=== PATIENT | female | born 1945 | race Caucasian/White ===

== ENCOUNTER → 2017-12-19 10:17 | Outpatient (CLI) | payer MEDICARE, OTHER, SELFPAY ==
--- NOTE | 2017-12-19 | DI.US.S_ITS ---
PROCEDURE: US PELVIC COMPLETE INDICATIONS: NEOPLASM LEFT OVARY TECHNIQUE: Real-time scanning was performed of the pelvic organs, with image documentation. Additional endovaginal scanning was necessary due to incomplete visualization of the adnexal and endometrial structures by transabdominal scanning. COMPARISON: [facility], , PELVIC COMPLETE, 07/10/2017, 12:07. FINDINGS: Transabdominal scanning: Limited scanning through the kidneys shows no hydronephrosis. No pathologic free abdominal or pelvic fluid. Endovaginal scanning: Uterus: Uterus is normal in size at 5.8 x 2 point by 3.5 cm. The endometrium measures 3.5 mm in combined thickness. Myometrial calcification redemonstrated. Ovaries: Small bilateral ovarian cysts present largest on the left measure up to 1.6 cm and on the right 0.8 cm. Previously visualized left renal mass is no longer visible status post cryotherapy. Solid right renal mass is now seen involving the superior pole the right kidney measuring 2.3 cm. IMPRESSION: 1. Bilateral simple ovarian cysts similar to prior examination. Continued sonographic surveillance recommended. 2. Previously visualized left renal mass is no longer visible and a 2.3 cm solid mass now involves the superior pole of the right kidney. Underlying neoplasm cannot be excluded and if indicated renal protocol CT could be performed for further assessment. Dictated by: Ham PAIGE Interpreted: Yuval Orozco MD on 12/19/2017 at 11:21 Approved by: Yuval Orozco M.D. on 12/19/2017 at 14:18
== END ==
PROVIDERS: Family Provider Obstetrics & Gynecology; PCP Obstetrics & Gynecology; Visit Provider Obstetrics & Gynecology
DX: N83.291 Other ovarian cyst, right side (principal); N83.292 Other ovarian cyst, left side; N28.89 Other specified disorders of kidney and ureter; D49.59 Neoplasm of unspecified behavior of other genitourinary organ
CPT/HCPCS: 76830; 76856

== ENCOUNTER → 2017-12-25 10:49 | Outpatient (CLI) | payer MEDICARE, OTHER, SELFPAY ==
--- NOTE | 2017-12-25 | DI.CT.S_ITS ---
PROCEDURE: CT KIDNEY URETER BLADDER (KUB) INDICATIONS: Left adnexal mass TECHNIQUE: Noncontrast 5 mm thick sections acquired from the diaphragms to the symphysis. 5 mm thick coronal and sagittal reformats were then performed. For radiation dose reduction, the following was used: automated exposure control, adjustment of mA and/or kV according to patient size. COMPARISON: [facility], , PELVIC COMPLETE, 07/10/2017, 12:07. [facility], , PELVIC COMPLETE, 12/19/2017, 10:33. FINDINGS: Image quality: Excellent. Lung bases: Lung bases are clear. Heart size is normal. Urinary system: Both kidneys are normal in size, but exophytic from the lateral aspect of the middle third renal cortex on the right there is a complex mass containing internal fat and soft tissue radiodensity and faint peripheral calcifications. This measures up to 3.3 cm AP, 2.5 cm transverse and approximately 2.5 cm craniocaudad. The appearance is most likely a manifestation of angiomyolipoma. There are several bilateral water density renal cortical cyst appear simple by CT criteria bilaterally. No kidney stones. No hydronephrosis or perinephric fat stranding. Both ureters appear non-dilated throughout their expected courses. Bladder wall thickness is normal; no calcified bladder stones. Other solid organs: Liver is normal in size. Gallbladder appears normal where well visualized except for presence of a slight degree of layering calcification at the posterior border of the gallbladder lumen.. Pancreas is normal in contours. Spleen is normal in size. No adrenal nodules. Peritoneum and bowel: Unenhanced bowel loops demonstrate normal wall thickness and caliber. No free fluid or air. Nodes and vessels: No retroperitoneal or mesenteric adenopathy by size criteria. Aorta and inferior vena cava are normal in caliber. Abdominal wall: No ventral hernias. Pelvis: No free pelvic fluid. No inguinal hernias or adenopathy. Several adnexal cysts have been better visualized by ultrasound than by the current CT scanning, and currently the largest cyst appears present on the left measuring up to 2.2 cm. Bones: No suspicious bony lesions. No vertebral body compression fractures. IMPRESSION: Prior ultrasound scanning of the pelvis as included documentation of a right renal cortical mass like structure from studies performed in July and December of this year, but no prior imaging of this area is available for review. Outside studies, if available, would be very helpful in establishing chronicity of the abnormality present. At the lateral cortex of the right mid kidney there is a 3.3 cm maximal dimension complex masslike structure containing internal fat radiodensity and faint peripheral calcifications. This correlates with the sonographic abnormality. The fat density increases the likelihood of angiomyolipoma as cause of this appearance. Old comparison films should be obtained if possible. Urology consultation is recommended unless this has already been obtained and followup should be determined by the consulting urologist. Dictated by: Yuval Orozco M.D. on 12/25/2017 at 12:17 Approved by: Yuval Orozco M.D. on 12/25/2017 at 12:29
== END ==
PROVIDERS: Family Provider Obstetrics & Gynecology; PCP Obstetrics & Gynecology; Visit Provider Urology
DX: N28.89 Other specified disorders of kidney and ureter (principal); R19.09 Other intra-abdominal and pelvic swelling, mass and lump
CPT/HCPCS: 74176

== ENCOUNTER 2018-09-06 08:56 | Inpatient (IN) | payer MEDICARE, OTHER, SELFPAY ==
[2018-09-06] VITALS (19 sets, daily range): BP systolic 105–138; BP diastolic 36–67; PULSE 67–98; RESP 14–26; TEMP 35.8–37.5; O2SAT 86–97; BMI 27.3; BMI 26.3
--- NOTE | 2018-09-06 | DI.ECHO.S_ITS ---
[facility] [place] [facility]---------+ [facility] +---------+ : : [address] : : : : [id number] : : : : Phone: [phone]+ Echocardiogram Report + + :Name: WILBERTO FORBES Study Date: 09/06/2018 Height: 64 in : :[facility] Weight: 159 lb: : Gender: Female BSA: 1.8 m2 : :: 1945 Age: 73 yrs BP: 93/48 mmHg: :Reason For Study: Pulmonary - Hypertension : : Performed By: Bere Saldivar : :Referring: KIM LIN : + + Interpretation Summary Normal sinus rhythm. Normal LV size, wall thickness, wall motion and LV systolic function. EF is 60-65%. Moderate LA enlargement; otherwise normal chamber sizes. No significant valvular abnormalities. Estimated PA systolic pressure is 41 mm hg assuming RA pressure of 3 mm hg. There is a trivial circumferential pericardial effusion and trivial right pleural effusion. No prior study available for comparison. Procedure: A two-dimensional transthoracic echocardiogram with color flow and Doppler was performed. The study quality was technically adequate. There is no prior echocardiogram noted for this patient. The patient was in normal sinus rhythm during the exam. Left Ventricle: The left ventricle is normal in size, wall thickness, and systolic function without any focal wall motion abnormalities. The ejection fraction is estimated to be 60-65%. Diastolic parameters suggest a pseudonormalization pattern, consistent with probable elevated filling pressures. Right Ventricle: The right ventricle grossly appears normal in size with probable normal systolic function. Atria: The left atrium is moderately dilated. Right atrial size is normal. The interatrial septum is intact with no evidence for an atrial septal defect. Mitral Valve: The mitral valve is normal in structure and function. Aortic Valve: The aortic valve is trileaflet. The aortic valve opens well. Tricuspid Valve: The tricuspid valve leaflets are thin and pliable. There is mild tricuspid regurgitation. The right ventricular systolic pressure is estimated to be at least 41 mmHg based on an estimated right atrial pressure of 3 mm Hg. Pulmonic Valve: The pulmonic valve is not well seen, but is grossly normal. There is trace pulmonic regurgitation. Great Vessels: The aortic root is normal size. The ascending aorta is normal in size. The aortic arch is normal in size. The IVC is of normal diameter and collapses greater than 50% with a sniff. This suggests a low right atrial pressure of 3 mm Hg. Pericardium/ Pleura A circumferential pericardial effusion is noted. There is a trivial right-sided pleural effusion. MMode/2D Measurements & Calculations LVIDd: 4.3 cm Ao root diam: 3.1 cm LVIDs: 2.2 cm Aortic Jxn: 2.3 cm FS: 48.1 % asc Aorta Diam: 3.5 cm EPSS: 0.35 cm Ao Arch Diam (Prox Trans): 2.8 cm IVSd: 0.91 cm LVPWd: 0.72 cm LV rosales. diameter/BSA (cm/m^2): 2.4 LV sys. diameter/BSA (cm/m^2): 1.2 LA dimension: 3.3 cm RA long axis: 4.4 cm LA A2 area: 22.4 cm2 RA area: 16.0 cm2 LA A4 area: 24.3 cm2 RA vol: 49.0 ml LA length (vol): 5.6 cm RA : 27.6 ml/m2 LA vol: 83.2 ml RVDd major: 5.4 cm LA vol index: 46.9 ml/m2 RVD1 (basal): 3.7 cm RVD2 (mid): 2.6 cm Doppler Measurements & Calculations Ao V2 max: 169.0 cm/sec MV E max tio: 119.8 cm/sec Ao V2 mean: 113.6 cm/sec MV A max tio: 112.8 cm/sec Ao max P.4 mmHg MV E/A: 1.1 Ao mean P.0 mmHg Med Peak E' Tio: 5.5 cm/sec Ao V2 VTI: 40.3 cm E/E' med: 21.9 Lat Peak E' Tio: 9.1 cm/sec E/E' lat: 13.2 E/e' average: 17.6 MV dec time: 0.20 sec MV P1/2t: 60.6 msec TR max tio: 308.3 cm/sec MV P1/2t max tio: 120.2 cm/sec TR max P.0 mmHg MVA(P1/2t): 3.6 cm2 PA V2 max: 68.8 cm/sec PA V2 mean: 46.7 cm/sec PA mean P.0 mmHg PA Accel Time: 0.11 sec Electronically signed by: Melissa Solitario M.D. on Reading Physician:09/06/2018 06:15 PM
--- NOTE | 2018-09-06 09:06 | DI.CT.S_ITS ---
PROCEDURE: CT ABDOMEN PELVIS W CON INDICATIONS: Left sided pain TECHNIQUE: After the administration of intravenous contrast, 5 mm thick sections acquired from the diaphragm to the symphysis. 5 mm coronal and sagittal reformats were acquired. For radiation dose reduction, the following was used: automated exposure control, adjustment of mA and/or kV according to patient size. COMPARISON: [facility], CT, CT KIDNEY URETER BLADDER (KUB), 12/25/2017, 11:01. FINDINGS: Image quality: Excellent. ABDOMEN: Lung bases: There is mild right basilar atelectasis and a small low density right pleural effusion. There is mild consolidation at the left lung base with a small low-density left pleural effusion. Some pleural fluid is also tracking through the left oblique fissure. Heart is mildly enlarged. There is a small low-density pericardial effusion. Solid organs: Liver is normal in size and enhancement. Multiple subcentimeter gallstones are layered in the gallbladder fundus. No gallbladder wall thickening or pericholecystic fluid. Biliary system is non dilated. Pancreas enhances normally. Spleen is normal in size and enhancement. No adrenal nodules. Kidneys demonstrate normal size and enhancement, without hydronephrosis. Right nipple angiomyolipoma is redemonstrated and is unchanged when compared with the study dated 12/25/17. Bilateral low-density cystic lesions are redemonstrated within the renal cortices most likely representing simple renal cysts. 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 Peritoneum and bowel: Bowel loops demonstrate normal wall thickness and caliber. The appendix is thin walled and gas filled. There are scattered sigmoid diverticula. No evidence for diverticulitis. No free fluid or air. Nodes and vessels: No retroperitoneal or mesenteric adenopathy by size criteria. Aorta and inferior vena cava are normal in size. There are scattered atheromatous calcifications throughout the aorta and iliac arteries bilaterally. Miscellaneous: No ventral hernias. PELVIS: Genitourinary: Bladder wall thickness is normal. The uterus and right ovary are grossly unremarkable. Multiple cysts are visualized within the left ovary. Overall, the left ovary appears increased in size when compared with the study dated 12/25/17. No free periovarian fluid. Miscellaneous: No inguinal hernias or adenopathy. Bones: No suspicious bony lesions. No vertebral body compression fractures. Moderate to severe degenerative changes present throughout the lumbar spine. IMPRESSION: 1. No acute intra-abdominal findings. Normal appendix. 2. Increased size of the left ovary which has a multiloculated cystic appearance. In a postmenopausal female, it is unclear whether this may be physiologic or may represent a cystic tumor. Pelvic ultrasound is recommended to further characterize findings. Alternatively, gynecologic protocol MRI may be helpful. 3. Mild diverticulosis. No acute diverticulitis. 4. Stable right angiomyolipoma and bilateral renal cysts. 5. Cholelithiasis. No findings to suggest choledocholithiasis or acute cholecystitis. 6. Left basilar consolidation and small bilateral pleural effusions suspicious for aspiration/infection. Short interval followup is recommended with resolution of the patient's symptoms to ensure there is no underlying pulmonary pathology. Dictated by: Tiffany Allan M.D. on 09/06/2018 at 11:31 Approved by: Tifafny Allan M.D. on 09/06/2018 at 11:44
--- NOTE | 2018-09-06 09:06 | DI.CT.S_ITS ---
PROCEDURE: CT ANGIO CHEST PE PROTOCOL INDICATIONS: hypoxic, left sided chest pain. hurts to breath TECHNIQUE: After the administration of intravenous contrast, 2 mm thick sections acquired from the pulmonary apices to the posterior costophrenic angles. 3-dimensional maximum intensity projection (MIP) coronal and sagittal reformats were then acquired through the thorax. For radiation dose reduction, the following was used: automated exposure control, adjustment of mA and/or kV according to patient size. COMPARISON: [facility], CT, CT KIDNEY URETER BLADDER (KUB), 12/25/2017, 11:01. FINDINGS: Image quality: Excellent. Pulmonary arteries: Main pulmonary artery is enlarged measuring 43 mm. The pulmonary arteries demonstrate no intraluminal filling defects to suggest central pulmonary embolism. Lungs and pleura: Minimal effusion/dependent changes are present within the lungs bilaterally. There is an overall appearance of increased pulmonary vascularity. Faint areas of patchy opacity are noted in the left base. Central and peripheral airways are patent. Mediastinum: Heart size is mildly prominent with minimal pericardial effusion. There are two nodules identified along the left lateral aspect of the pericardial sac measuring 4 mm on series 4 image 58 and 7 mm on series 4 image 63. No mediastinal or hilar adenopathy. Thoracic aorta is normal in caliber and enhancement. Esophagus demonstrates circumferential distal thickening with hiatal hernia, unchanged compared to 2018. Bones and chest wall: No suspicious bony lesions. Ribs and thoracic spine appear intact throughout. Thyroid gland is nonvisualized. No axillary or supraclavicular adenopathy. Abdomen: Visualized upper abdominal solid organs appear normal in the early arterial phase of enhancement. IMPRESSION: 1. No pulmonary embolism. 2. Enlarged main pulmonary artery consistent pulmonary artery hypertension. 3. Subcentimeter nodules within the left aspect of the pericardial sac. These could represent reactive lymph nodes. However, other etiologies cannot be excluded and no priors are available for comparison. Recommend interval followup as clinically indicated to document stability and correlate with patient history. 4. Circumferential thickening of the distal esophagus which could be secondary to esophagitis. It is unchanged since 12/25/17. While this could represent esophagitis, marked circumferential thickening is noted in further evaluation with endoscopy or upper GI is recommended, as neoplasm cannot be definitively excluded. 4. Minimal effusion/dependent changes within the bases as well as increased vascularity suggestive of edema. Small patchy opacity is present in the left base likely represent atelectasis/focal edema. However, focus of developing airspace disease cannot be excluded. Dictated by: Liz Aguayo M.D. on 09/06/2018 at 11:35 Approved by: Liz Aguayo M.D. on 09/06/2018 at 11:49
--- NOTE | 2018-09-06 09:07 | DI.RAD.S_ITS ---
PROCEDURE: XR CHEST 1V INDICATIONS: hurts to breathe TECHNIQUE: One view of the chest was acquired. COMPARISON: [facility], , CHEST 2 VIEW, 10/26/2016, 13:21. FINDINGS: Surgical changes and devices: None. Lungs and pleura: Mild consolidation at the left lung base is present a partially obscured the diaphragm. There are low lung volumes. Mediastinum: Mediastinal contours appear normal. Heart size is mildly enlarged. There is aortic atherosclerosis. Bones and chest wall: No suspicious bony lesions. Overlying soft tissues appear unremarkable. IMPRESSION: 1. Cardiomegaly without overt heart failure. 2. Mild left basilar consolidation probably represents atelectasis. Pneumonia may also have this appearance. Dictated by: Nato Adams M.D. on 09/06/2018 at 8:29 Approved by: Nato Adams M.D. on 09/06/2018 at 8:30
--- NOTE | 2018-09-06 09:11 | ED_ITS ---
HPI - Abdominal Pain General Chief Complaint: Abdominal Pain Stated Complaint: LLQ Abdominal Pain Time Seen by Provider: 09/06/18 08:57 Source: patient, family and EMS Mode of arrival: EMS Limitations: no limitations History of Present Illness HPI narrative: Patient is a 73-year-old female who presents with left upper quadrant pain ongoing for the last 3 weeks. Seems of progressively be getting worse. She denies any fever productive cough. She states that it does hurt when she takes a deep breath. No injury. No dizziness or lightheadedness. She is noted to be hypoxic on room air at 85%. She appears in no acute respiratory distress able to give me a good history. Not on home oxygen. She has no chest pain not complaining of shortness of breath no heart palpitations. MD complaint: abdominal pain Onset (ago): week(s) Location: [facility] Severity: moderate Quality: stabbing Related Data Home Medications Medication Instructions Recorded Confirmed hydralazine 100 mg PO TID #0 10/26/16 09/06/18 metoprolol tartrate 12.5 mg PO BID #0 10/26/16 09/06/18 atorvastatin [Lipitor] 20 mg PO BEDTIME #0 10/27/16 09/06/18 cholecalciferol (vitamin D3) 2,000 unit PO QPM #0 10/27/16 09/06/18 [Vitamin D3] clonidine [[id number]] 0.3 mg TOPICAL QWEEKSA #0 10/27/16 09/06/18 liothyronine [Cytomel] 25 mcg PO QDAY #0 10/27/16 09/06/18 amlodipine 10 mg PO DAILY 09/06/18 09/06/18 doxazosin 2 mg PO BEDTIME 09/06/18 09/06/18 gabapentin 300 mg PO QPM 09/06/18 09/06/18 glipizide 5 mg PO DAILY 09/06/18 09/06/18 levothyroxine [Synthroid] 137 mcg PO DAILY 09/06/18 09/06/18 omeprazole 40 mg PO DAILY 09/06/18 09/06/18 paroxetine HCl 10 mg PO DAILY 09/06/18 09/06/18 sevelamer HCl [Renagel] 1,600 mg PO BID 09/06/18 09/06/18 sevelamer HCl [Renagel] 800 mg PO QNOON 09/06/18 09/06/18 Allergies Allergy/AdvReac Type Severity Reaction Status Date / Time adhesive tape AdvReac Mild Flushing Verified 09/06/18 14:07 Review of Systems Review of Systems ROS Unobtainable: All systems reviewed & are unremarkable except as noted in HPI and below Constitutional Denies chills, Denies fever(s), Denies lethargy and Denies weakness ENT Ears, Nose, Mouth, and Throat: Denies change in voice, Denies neck pain and Denies sore throat Cardiovascular Denies chest pain, Denies irregular heart rhythm, Denies lightheadedness, Denies palpitations, Denies dyspnea, Denies dyspnea on exertion and Denies orthopnea Respiratory Reports as per HPI, Denies cough, Denies hemoptysis, Denies dyspnea, Denies dyspnea on exertion and Denies wheezing Gastrointestinal Gastrointestinal: Denies abdominal pain, Denies change in bowel habits, Denies diarrhea, Denies nausea and Denies vomiting Genitourinary Denies hematuria, Denies flank pain, Denies urinary incontinence and Denies urinary urgency Musculoskeletal Denies neck pain Integumentary/Breasts Denies pruritus, Denies erythema, Denies rash and Denies wounds Neurologic Denies weakness Endocrine Denies palpitations Allergic/Immunologic Denies wheezing PFSH Medical History CKD (chronic kidney disease) (Acute) Hypertension (Acute) Hypothyroid (Acute) DM (diabetes mellitus) type II controlled with renal manifestation (Chronic) Diabetic neuropathy (Chronic) HLD (hyperlipidemia) (Chronic) Renal mass of unknown nature (Chronic) Surgical History H/O thyroidectomy (Chronic) Family History Father Diabetes mellitus Mother Diabetes mellitus Myocardial infarct Social History household members: spouse Smoking Status: Never smoker Social History household members: spouse Smoking Status: Never smoker Exam Initial Vital Signs Initial Vital Signs: Vital Signs Temperature 99.5 F 09/06/18 09:09 Pulse Rate 86 09/06/18 09:09 Respiratory Rate 26 H 09/06/18 09:09 Blood Pressure 138/59 L 09/06/18 09:09 Pulse Oximetry 86 L 09/06/18 09:09 GENERAL: Elderly female appears in pain holding left upper quadrant HEENT: Head atraumatic,EOMI, pupils reactive CARDIOVASCULAR: Regular rate and rhythm without murmurs, rubs or gallops. RESPIRATORY: Breath sounds equal bilaterally, no wheezes rales or rhonchi. Minimal rib pain no sign of trauma no paradoxical movement ABDOMEN: Soft, tender left upper quadrant no guarding or rebound RECTAL: No stool no gross blood EXTREMITIES: Normal range of motion, no clubbing or edema. Neurovascularly intact NEUROLOGICAL: Alert and oriented x4.Normal gait and speech. Cranial nerves II through XII grossly intact. SKIN: Warm, dry, no laceration, no petechiae, no rashes or lesions. Course Orders Ordered: ED Orders 09/06/18 09:06 CT abdomen pelvis w con Stat CT angio chest PE protocol Stat 09/06/18 09:07 XR chest 1V Stat EKG-12 Lead Stat 09/06/18 09:50 B Type Natriuretic Peptide Stat Complete Blood Count AUTO DIFF Stat Comprehensive Metabolic Panel Stat Iron Profile (w/ % Saturation) Stat Lipase Stat Packed Cells Urgent Partial Thromboplastin Time Stat Pathologist Review (for CBC) Stat Prothrombin Time INR Stat Troponin & CK Cardiac Panel Stat Type and Screen Stat 09/06/18 10:48 Urine Culture Stat Urine Microscopic Stat 09/06/18 12:22 Arterial Blood Gas Stat 09/06/18 15:55 Consult to Dietitian, Adult Routine Consult to Nanotechnology Engineering Technician Routine Hydrocodone Bitart/Acetaminophen ([place] 5/325) 1 tab PO Q4HR PRN PRN Reason: Pain, Moderate (4-6) Amlodipine Besylate (Norvasc) 10 mg PO DAILY [facility] Atorvastatin Calcium (Lipitor) 20 mg PO BEDTIME [facility] Clonidine HCl (Catapres-Tts 1) 0.3 mg TOP WEEKLY [facility] Doxazosin Mesylate (Cardura) 2 mg PO BEDTIME [facility] Gabapentin (Neurontin) 300 mg PO DAILY [facility] Glipizide (Glucotrol) 5 mg PO DAILY [facility] Heparin Sodium (Porcine) (Heparin) 5,000 unit SUBCUT BID A[facility]ON Hydralazine HCl (Apresoline) 100 mg PO TID [facility] Sodium Chloride (Normal Saline 0.9%) 1,000 mls @ 150 mls/hr IV CONT AARON Last Infusion: 09/06/18 12:08 Dose: 150 mls/hr Admin: 09/06/18 09:44 Dose: 150 mls/hr Levothyroxine Sodium (Synthroid) 137 mcg PO 0600 [facility] Liothyronine Sodium (Cytomel) 25 mcg PO DAILY [facility] Metoprolol Tartrate (Lopressor) 12.5 mg PO BID [facility] Sevelamer 800 Mg 1,600 mg PO BID AARON Sevelamer 800 Mg 800 mg PO 1200 [facility] Pantoprazole Sodium (Protonix) 40 mg PO 0600 [facility] Paroxetine HCl (Paxil) 10 mg PO DAILY [facility] Vitamin D (Vitamin D3) 2,000 unit PO DAILY AARON Discontinued Medications Morphine Sulfate (Morphine) 2 mg IV NOW ONE Stop: 09/06/18 09:07 Last Admin: 09/06/18 09:44 Dose: 2 mg Ondansetron HCl (Zofran) 4 mg IV NOW ONE Stop: 09/06/18 10:00 Last Admin: 09/06/18 10:00 Dose: 4 mg Pantoprazole Sodium (Protonix) 20 mg PO 0600 [facility] Vital Signs - 8 hr 09/06/18 09:09 09/06/18 09:15 09/06/18 11:30 Temperature 99.5 F Pulse Rate 86 78 Respiratory Rate 26 H 24 22 Blood Pressure 138/59 L Blood Pressure [Left Arm] 117/52 L Pulse Oximetry 86 L 95 92 09/06/18 12:01 09/06/18 12:31 09/06/18 13:44 Temperature Pulse Rate 76 73 72 Respiratory Rate 21 19 20 Blood Pressure Blood Pressure [Left Arm] 122/49 L 119/48 L 111/49 L Pulse Oximetry 93 92 95 09/06/18 14:56 Temperature 96.4 F L Pulse Rate 98 H Respiratory Rate Blood Pressure 110/36 L Blood Pressure [Left Arm] Pulse Oximetry 97 MDM - Abdominal Pain Lab Data Attestation: I reviewed the patient's lab results. Result diagrams: 09/06/18 09:50 09/06/18 09:50 Lab Results 09/06/18 09/06/18 09/06/18 Range/Units 09:50 09:50 09:50 WBC 3.1 L (4.5-11.0) X10^3/uL RBC 3.33 L (4.0-5.2) X10^6/uL Hgb 8.0 L (12.0-16.0) g/dL Hct 23.9 L (36-46) % MCV 71.8 L (80-100) fL MCH 23.9 L (26-34) PG MCHC 33.3 (30-36) % RDW 15.3 H (11.6-14.8) % Plt Count 212 (150-400) X10^3/uL Neut % (Auto) Not Reportable Lymph % (Auto) Not Reportable [place] % (Auto) Not Reportable Eos % (Auto) Not Reportable Baso % (Auto) Not Reportable Lymph # (Auto) Not Reportable [place] # (Auto) Not Reportable Baso # (Auto) Not Reportable Total Counted 100 Seg Neutrophils % 33.0 L (38-70) % Band Neutrophils % 19.0 H (3-7) % Lymphocytes % (Manual) 14.0 L (25-45) % Atypical Lymphs % 1.0 H ( - 0) % Monocytes % (Manual) 24.0 H (2-11) % Eosinophils % (Manual) 2.0 (2-4) % Metamyelocytes % 5.0 H (-0) % Myelocytes % 2.0 H (-0) % Neutrophils # (Manual) 1612 L (8138-6332) /uL RBC Morphology See below Hypochromasia 1+ H Anisocytosis 1+ H PT 15.0 H (10.1-12.7) SECONDS INR 1.3 (0.9-1.3) APTT 51 H (26.4-36.2) SECONDS ABG pH (7.35-7.45) ABG pCO2 (35-45) mmHg ABG pO2 (80-100) mmHg ABG HCO3 (22-26) mmol/L ABG Total CO2 (21-31) mmol/L ABG O2 Saturation (95-100) % ABG Base Excess (-2-2) mmol/L FiO2 Sodium (137-145) mmol/L Potassium (3.4-5.1) mmol/L Chloride (98-107) mmol/L Carbon Dioxide (22-32) mmol/L BUN (7-17) mg/dL Creatinine (0.52-1.04) mg/dL Estimated GFR (>60) mL/min BUN/Creatinine Ratio (6-22) Glucose (80-110) mg/dL Calcium (8.4-10.2) mg/dL Iron (37-170) ug/dL TIBC (265-497) ug/dL % Saturation (15-50) % Transferrin (206-381) mg/dL Total Bilirubin (0.2-1.3) mg/dL AST (14-36) IU/L ALT (9-52) IU/L Alkaline Phosphatase (38-126) U/L Total Creatine Kinase (30-135) U/L CK-MB (CK-2) CK-MB (CK-2) Rel Index Troponin I (0.01-0.034) ng/mL B-Natriuretic Peptide < 100 (<100) Total Protein (6.3-8.2) g/dL Albumin (3.5-5.0) g/dL Globulin (1.7-4.1) g/dL Albumin/Globulin Ratio (1.0-2.8) Lipase (23-300) U/L Urine RBC (0-5/HPF) Urine WBC (0-5/HPF) Ur Squamous Epith Cells Ur Renal Epithelial Cell Uric Acid Crystals Urine Bacteria (None) Hyaline Casts (None) Granular Casts (None) Ur Culture Indicated? Blood Type Antibody Screen Crossmatch 09/06/18 09/06/18 09/06/18 Range/Units 09:50 09:50 09:50 WBC (4.5-11.0) X10^3/uL RBC (4.0-5.2) X10^6/uL Hgb (12.0-16.0) g/dL Hct (36-46) % MCV (80-100) fL MCH (26-34) PG MCHC (30-36) % RDW (11.6-14.8) % Plt Count (150-400) X10^3/uL Neut % (Auto) Lymph % (Auto) [place] % (Auto) Eos % (Auto) Baso % (Auto) Lymph # (Auto) [place] # (Auto) Baso # (Auto) Total Counted Seg Neutrophils % (38-70) % Band Neutrophils % (3-7) % Lymphocytes % (Manual) (25-45) % Atypical Lymphs % ( - 0) % Monocytes % (Manual) (2-11) % Eosinophils % (Manual) (2-4) % Metamyelocytes % (-0) % Myelocytes % (-0) % Neutrophils # (Manual) (4542-0342) /uL RBC Morphology Hypochromasia Anisocytosis PT (10.1-12.7) SECONDS INR (0.9-1.3) APTT (26.4-36.2) SECONDS ABG pH (7.35-7.45) ABG pCO2 (35-45) mmHg ABG pO2 (80-100) mmHg ABG HCO3 (22-26) mmol/L ABG Total CO2 (21-31) mmol/L ABG O2 Saturation (95-100) % ABG Base Excess (-2-2) mmol/L FiO2 Sodium 128 L (137-145) mmol/L Potassium 4.3 (3.4-5.1) mmol/L Chloride 100 (98-107) mmol/L Carbon Dioxide 18 L (22-32) mmol/L BUN 23 H (7-17) mg/dL Creatinine 1.50 H (0.52-1.04) mg/dL Estimated GFR 34.0 L (>60) mL/min BUN/Creatinine Ratio 15.3 (6-22) Glucose 151 H (80-110) mg/dL Calcium 8.4 (8.4-10.2) mg/dL Iron 23 L (37-170) ug/dL TIBC 251 L (265-497) ug/dL % Saturation 9 L (15-50) % Transferrin 169 L (206-381) mg/dL Total Bilirubin 0.8 (0.2-1.3) mg/dL AST 20 (14-36) IU/L ALT 24 (9-52) IU/L Alkaline Phosphatase 60 (38-126) U/L Total Creatine Kinase < 20 L (30-135) U/L CK-MB (CK-2) TNP CK-MB (CK-2) Rel Index TNP Troponin I < 0.012 (0.01-0.034) ng/mL B-Natriuretic Peptide (<100) Total Protein 6.6 (6.3-8.2) g/dL Albumin 3.0 L (3.5-5.0) g/dL Globulin 3.6 (1.7-4.1) g/dL Albumin/Globulin Ratio 0.8 L (1.0-2.8) Lipase 52 (23-300) U/L Urine RBC (0-5/HPF) Urine WBC (0-5/HPF) Ur Squamous Epith Cells Ur Renal Epithelial Cell Uric Acid Crystals Urine Bacteria (None) Hyaline Casts (None) Granular Casts (None) Ur Culture Indicated? Blood Type O Positive Antibody Screen Negative Crossmatch See Detail 09/06/18 09/06/18 Range/Units 10:48 12:22 WBC (4.5-11.0) X10^3/uL RBC (4.0-5.2) X10^6/uL Hgb (12.0-16.0) g/dL Hct (36-46) % MCV (80-100) fL MCH (26-34) PG MCHC (30-36) % RDW (11.6-14.8) % Plt Count (150-400) X10^3/uL Neut % (Auto) Lymph % (Auto) [place] % (Auto) Eos % (Auto) Baso % (Auto) Lymph # (Auto) [place] # (Auto) Baso # (Auto) Total Counted Seg Neutrophils % (38-70) % Band Neutrophils % (3-7) % Lymphocytes % (Manual) (25-45) % Atypical Lymphs % ( - 0) % Monocytes % (Manual) (2-11) % Eosinophils % (Manual) (2-4) % Metamyelocytes % (-0) % Myelocytes % (-0) % Neutrophils # (Manual) (7416-1797) /uL RBC Morphology Hypochromasia Anisocytosis PT (10.1-12.7) SECONDS INR (0.9-1.3) APTT (26.4-36.2) SECONDS ABG pH 7.33 L (7.35-7.45) ABG pCO2 32.2 L (35-45) mmHg ABG pO2 50 L (80-100) mmHg ABG HCO3 17 L (22-26) mmol/L ABG Total CO2 18 L (21-31) mmol/L ABG O2 Saturation 83 L* (95-100) % ABG Base Excess -9.0 L (-2-2) mmol/L FiO2 0.21 Sodium (137-145) mmol/L Potassium (3.4-5.1) mmol/L Chloride (98-107) mmol/L Carbon Dioxide (22-32) mmol/L BUN (7-17) mg/dL Creatinine (0.52-1.04) mg/dL Estimated GFR (>60) mL/min BUN/Creatinine Ratio (6-22) Glucose (80-110) mg/dL Calcium (8.4-10.2) mg/dL Iron (37-170) ug/dL TIBC (265-497) ug/dL % Saturation (15-50) % Transferrin (206-381) mg/dL Total Bilirubin (0.2-1.3) mg/dL AST (14-36) IU/L ALT (9-52) IU/L Alkaline Phosphatase (38-126) U/L Total Creatine Kinase (30-135) U/L CK-MB (CK-2) CK-MB (CK-2) Rel Index Troponin I (0.01-0.034) ng/mL B-Natriuretic Peptide (<100) Total Protein (6.3-8.2) g/dL Albumin (3.5-5.0) g/dL Globulin (1.7-4.1) g/dL Albumin/Globulin Ratio (1.0-2.8) Lipase (23-300) U/L Urine RBC 1-5/hpf (0-5/HPF) Urine WBC 1-5/hpf (0-5/HPF) Ur Squamous Epith Cells 1-5 /hpf Ur Renal Epithelial Cell 0-1/hpf Uric Acid Crystals Moderate Urine Bacteria Moderate (10-30) H (None) Hyaline Casts 1-5/lpf (None) Granular Casts 30-100/lpf (None) Ur Culture Indicated? Specimen cultured Blood Type Antibody Screen Crossmatch Point of care testing: Urine Dip Bedside Urine Glucose Negative Bedside Urine Bilirubin - Negative Bedside Urine Ketone - Negative Urine Specific Terrell 1.020 Bedside Urine Occult Blood - Negative Bedside Urine pH 5.5 Bedside Urine Protein ++ 100 Bedside Urine Urobilinogen - Negative Bedside Urine Nitrite - Negative Bedside Urine Leukocytes - Negative Esterase Imaging Data CT scan - chest: Radiologist's impression: PROCEDURE: CT ANGIO CHEST PE PROTOCOL INDICATIONS: hypoxic, left sided chest pain. hurts to breath TECHNIQUE: After the administration of intravenous contrast, 2 mm thick sections acquired from the pulmonary apices to the posterior costophrenic angles. 3-dimensional maximum intensity projection (MIP) coronal and sagittal reformats were then acquired through the thorax. For radiation dose reduction, the following was used: automated exposure control, adjustment of mA and/or kV according to patient size. COMPARISON: [facility], CT, CT KIDNEY URETER BLADDER ([facility]UB), 12/25/2017, 11:01. FINDINGS: Image quality: Excellent. Pulmonary arteries: Main pulmonary artery is enlarged measuring 43 mm. The pulmonary arteries demonstrate no intraluminal filling defects to suggest central pulmonary embolism. Lungs and pleura: Minimal effusion/dependent changes are present within the lungs bilaterally. There is an overall appearance of increased pulmonary vascularity. Faint areas of patchy opacity are noted in the left base. Central and peripheral airways are patent. Mediastinum: Heart size is mildly prominent with minimal pericardial effusion. There are two nodules identified along the left lateral aspect of the pericardial sac measuring 4 mm on series 4 image 58 and 7 mm on series 4 image 63. No mediastinal or hilar adenopathy. Thoracic aorta is normal in caliber and enhancement. Esophagus demonstrates circumferential distal thickening with hiatal hernia, unchanged compared to 2018. Bones and chest wall: No suspicious bony lesions. Ribs and thoracic spine appear intact throughout. Thyroid gland is nonvisualized. No axillary or supraclavicular adenopathy. Abdomen: Visualized upper abdominal solid organs appear normal in the early arterial phase of enhancement. IMPRESSION: 1. No pulmonary embolism. 2. Enlarged main pulmonary artery consistent pulmonary artery hypertension. 3. Subcentimeter nodules within the left aspect of the pericardial sac. These could represent reactive lymph nodes. However, other etiologies cannot be excluded and no priors are available for comparison. Recommend interval followup as clinically indicated to document stability and correlate with patient history. 4. Circumferential thickening of the distal esophagus which could be secondary to esophagitis. It is unchanged since 12/25/17. While this could represent esophagitis, marked circumferential thickening is noted in further evaluation with endoscopy or upper GI is recommended, as neoplasm cannot be definitively excluded. 4. Minimal effusion/dependent changes within the bases as well as increased vascularity suggestive of edema. Small patchy opacity is present in the left base likely represent atelectasis/focal edema. However, focus of developing airspace disease cannot be excluded. Dictated by: Liz Aguayo M.D. on 09/06/2018 at 11:35 CT scan - abdomen: Radiologist's impression: PROCEDURE: CT ABDOMEN PELVIS W CON INDICATIONS: Left sided pain TECHNIQUE: After the administration of intravenous contrast, 5 mm thick sections acquired from the diaphragm to the symphysis. 5 mm coronal and sagittal reformats were acquired. For radiation dose reduction, the following was used: automated exposure control, adjustment of mA and/or kV according to patient size. COMPARISON: [facility], CT, CT KIDNEY URETER BLADDER ([facility]UB), 12/25/2017, 11:01. FINDINGS: Image quality: Excellent. ABDOMEN: Lung bases: There is mild right basilar atelectasis and a small low density right pleural effusion. There is mild consolidation at the left lung base with a small low- density left pleural effusion. Some pleural fluid is also tracking through the left oblique fissure. Heart is mildly enlarged. There is a small low-density pericardial effusion. Solid organs: Liver is normal in size and enhancement. Multiple subcentimeter gallstones are layered in the gallbladder fundus. No gallbladder wall thickening or pericholecystic fluid. Biliary system is non dilated. Pancreas enhances normally. Spleen is normal in size and enhancement. No adrenal nodules. Kidneys demonstrate normal size and enhancement, without hydronephrosis. Right nipple angiomyolipoma is redemonstrated and is unchanged when compared with the study dated 12/25/17. Bilateral low-density cystic lesions are redemonstrated within the renal cortices most likely representing simple renal cysts. 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 Peritoneum and bowel: Bowel loops demonstrate normal wall thickness and caliber. The appendix is thin walled and gas filled. There are scattered sigmoid diverticula. No evidence for diverticulitis. No free fluid or air. Nodes and vessels: No retroperitoneal or mesenteric adenopathy by size criteria. Aorta and inferior vena cava are normal in size. There are scattered atheromatous calcifications throughout the aorta and iliac arteries bilaterally. Miscellaneous: No ventral hernias. PELVIS: Genitourinary: Bladder wall thickness is normal. The uterus and right ovary are grossly unremarkable. Multiple cysts are visualized within the left ovary. Overall, the left ovary appears increased in size when compared with the study dated 12/25/17. No free periovarian fluid. Miscellaneous: No inguinal hernias or adenopathy. Bones: No suspicious bony lesions. No vertebral body compression fractures. Moderate to severe degenerative changes present throughout the lumbar spine. IMPRESSION: 1. No acute intra-abdominal findings. Normal appendix. 2. Increased size of the left ovary which has a multiloculated cystic appearance. In a postmenopausal female, it is unclear whether this may be physiologic or may represent a cystic tumor. Pelvic ultrasound is recommended to further characterize findings. Alternatively, gynecologic protocol MRI may be helpful. 3. Mild diverticulosis. No acute diverticulitis. 4. Stable right angiomyolipoma and bilateral renal cysts. 5. Cholelithiasis. No findings to suggest choledocholithiasis or acute cholecystitis. 6. Left basilar consolidation and small bilateral pleural effusions suspicious for aspiration/infection. Short interval followup is recommended with resolution of the patient's symptoms to ensure there is no underlying pulmonary pathology. Dictated by: Tiffany Allan M.D. on 09/06/2018 at 11:31 Chest x-ray: Radiologist's impression: PROCEDURE: XR CHEST 1V INDICATIONS: hurts to breathe TECHNIQUE: One view of the chest was acquired. COMPARISON: [facility], CHEST 2 VIEW, 10/26/2016, 13:21. FINDINGS: Surgical changes and devices: None. Lungs and pleura: Mild consolidation at the left lung base is present a partially obscured the diaphragm. There are low lung volumes. Mediastinum: Mediastinal contours appear normal. Heart size is mildly enlarged. There is aortic atherosclerosis. Bones and chest wall: No suspicious bony lesions. Overlying soft tissues appear unremarkable. IMPRESSION: 1. Cardiomegaly without overt heart failure. 2. Mild left basilar consolidation probably represents atelectasis. Pneumonia may also have this appearance. Dictated by: Nato Adams M.D. on 09/06/2018 at 8:29 ECG Data Attestation: I personally reviewed and interpreted this ECG as follows: Prior ECG tracings: available for review Interpretation: Sinus rhythm rate 86 similar prior EKG Q-wave noted in lead 3 and anterior leads no ST elevations or depressions. MDM Narrative Medical decision making narrative: Patient is complaining of left upper quadrant pain but I have no cause of her left upper quadrant pain. She is also noted to be quite hypoxic. Workup for this is also negative except that she is anemic. However her anemia does not explain her severe hypoxia. She is not actively bleeding. She does have pulmonary hypertension noted on CT a. She may have some sort of shunt problem. She certainly does not seem to be in any sort of severe respiratory distress. It is possible that due to pain she is not taking big breaths. She was given pain medicine all O2 did not improve. Her oxygen level does improve within 2-[address] Brunner hospitalist request ABG in pulmonary consult. I discussed case with Dr. oneal montanez supervisor gluing [facility]. At this time unclear exact cause of hypoxia pulmonary hypertension noted on CT recommends echocardiogram to start workup. At this time agrees no need for transfer. Dr. Brunner accepts the transfer Discharge Plan Departure Patient Disposition: Admitted as Observation Clinical Impression: Hypoxia, Abdominal pain Anemia Qualifiers: Anemia type: other cause Discharge Date/Time: 09/06/18 15:20 Interventions: ED Discharge Assessment Last Done: 09/06/18 14:56 Referrals: Jerome Tracey MD [Primary Care Provider] - Admit Date/Time: 09/06/18 13:37 Admit Provider: Elly Brunner
--- NOTE | 2018-09-06 09:20 | PC.NURSE ---
Doctor assessing patient, patients oxygen was low in the 80's on arrival with a good pleth waveform. I put patient on 2L of O2 and it brought patients oxygen up to 95%.
[2018-09-06] MEDS: SODIUM CHLORIDE 0.9% 1,000 ML 150 ML IV ×2 (09:44→23:40)
[2018-09-06] MEDS: MORPHINE 2 MG/ML INJ IV (09:44)
[2018-09-06] MEDS: ONDANSETRON 4 MG/2 ML INJ IV (10:00)
[2018-09-06 10:08] LABS: INR 1.3 (0.9-1.3)
[2018-09-06 10:11] LABS: PTT Partial Thromboplastin Tim 51 SECONDS (26.4-36.2)
[2018-09-06 10:14] LABS: Alanine Aminotransferase 24 IU/L (9-52); Albumin Globulin Ratio 0.8 (1.0-2.8); Alkaline Phosphatase 60 U/L (38-126); Aspartate Aminotransferase 20 IU/L (14-36); BUN Creatinine Ratio 15.3 (6-22); Bilirubin Total 0.8 mg/dL (0.2-1.3); Blood Urea Nitrogen 23 mg/dL (7-17); Calcium 8.4 mg/dL (8.4-10.2); Carbon Dioxide 18 mmol/L (22-32); Chloride 100 mmol/L (98-107); Creatine Kinase < 20 U/L (30-135); Globulin 3.6 g/dL (1.7-4.1); Glucose 151 mg/dL (80-110); HEMOLYSIS < 15 (0-50); Lipase 52 U/L (23-300); Potassium 4.3 mmol/L (3.4-5.1); Sodium 128 mmol/L (137-145); Total Protein 6.6 g/dL (6.3-8.2)
[2018-09-06 10:24] LABS: Troponin I < 0.012 ng/mL (0.01-0.034)
[2018-09-06 10:26] LABS: Hematocrit 23.9 % (36-46); Mean Corpuscular HGB Conc 33.3 % (30-36); Mean Corpuscular Hemoglobin 23.9 PG (26-34); Mean Corpuscular Volume 71.8 fL (80-100); Platelet Count 212 X10^3/uL (150-400); Red Blood Cell Count 3.33 X10^6/uL (4.0-5.2); Red Cell Distribution Width 15.3 % (11.6-14.8); White Blood Cell Count 3.1 X10^3/uL (4.5-11.0)
[2018-09-06 10:28] LABS: Add Manual Diff / Slide Review YES
[2018-09-06 10:48] LABS: Neutrophils Absolute Manual 1612 /uL (3000-5900); Total Cells Counted 100
[2018-09-06 10:52] LABS: B Type Natriuretic Peptide < 100 (<100)
[2018-09-06 11:02] LABS: Anisocytosis 1+
[2018-09-06 11:03] LABS: Hypochromasia 1+
[2018-09-06 11:31] LABS: RBC Urine 1-5/HPF (0-5/HPF); Renal Epithelial Cells Urine 0-1/HPF; Squamous Epithelial Cell Urine 1-5 /HPF; Uric Acid Crystals Urine Moderate; WBC Urine 1-5/HPF (0-5/HPF)
[2018-09-06 11:32] LABS: Bacteria Urine Moderate (10-30); Granular Casts Urine 30-100/LPF; Hyaline Casts Urine 1-5/LPF
[2018-09-06 11:33] LABS: Culture Indicated Urine Specimen Cultured
--- NOTE | 2018-09-06 12:17 | PC.NURSE ---
Dr. Garcia in the room; Discontinued oxygen - patient O2 saturation decreased to 83% on room within 2 minutes of oxygen beginning discontinued. Oxygen at 2L/min;
[2018-09-06 12:50] LABS: PCO2 ABG 32.2 mmHg (35-45); PO2 ABG 50 mmHg (80-100); pH ABG 7.33 (7.35-7.45)
[2018-09-06 12:51] LABS: HCO3 ABG 17 mmol/L (22-26); TCO2 ABG 18 mmol/L (21-31)
[2018-09-06 12:52] LABS: Fractionated Inspired Oxygen 0.21; Oxygen Saturation ABG 83 % (95-100)
[2018-09-06 15:05] LABS: HEMOLYSIS 15 (0-50); Iron 23 ug/dL (37-170)
--- NOTE | 2018-09-06 15:08 | P.HP_ITS ---
History of Present Illness Date Patient Seen: 09/06/18 Time Patient Seen: 14:36 Chief complaint: LLQ Abdominal Pain Narrative: 73-year-old female with past medical history of hypertension, hy perlipidemia, diabetes type 2, thyroid tumor status post resection and secondary hypothyroidism, diabetic neuropathy, CKD, renal cancer status post cryo resection presented to emergency department with left upper quadrant pain. Patient states the pain started roughly about 3 weeks ago and progressively has gotten worse. For the past 4 days the pain has been very severe, sharp, nonradiating, and initiated with deep breath, which has prevented patient from taking good breaths. Because the frequency increased to every few hours over the last 4 days, patient has came to emergency department for further evaluation. She denies any fevers or chills, denies any nausea or vomiting, denies any diarrhea or constipation, denies any cough denies any loss of consciousness. Denies any blurry vision, lightheadedness or dizziness. Denies any chest pain or palpitations. Patient does state that she has had loss of appetite. She has lost 30 lb in the last 7 months. Patient denies any symptoms. She denies trauma to the left side of her chest and abdomen. In the emergency department, patient's vitals revealed temperature 99.5? F, pulse 86, respiratory rate 26, blood pressure 138/59, and saturation 86% on room air. Her saturation improved to 94% on 2 L oxygen. Lab work revealed WBC 3.1, hemoglobin 8.0, hematocrit 23.9, platelets 212. Sodium was 128, potassium 4.3, chloride 100, bicarb 18, BUN 23, and creatinine 1.5. BNP was less than 100. Troponin was negative at 0.012. LFTs were normal with exception of albumin at 3.0. Lipase was 52. UA showed no nitrites or leukocyte esterase. ABG showed pH 7.33, CO2 32, PO2 50. Chest x-ray was performed which revealed cardiomegaly with left basilar consolidation, likely atelectasis. CTA PE performed which revealed no pulmonary embolism, however there was enlarged pulmonary artery consistent with pulmonary artery hypertension, subcentimeter nodules within pericardial sac, possible esophagitis, and minimal effusion at the bases of the lungs bilaterally. At that point CT of the abdomen and pelvis was performed which revealed no acute intra-abdominal findings, but increased size of left ovary with multiple cysts, mild diverticulosis, bilateral renal cysts and right angiomyolipoma, cholelithiasis, and left basilar consolidation and small bilateral pleural effusion. Patient was admitted to general floor for further workup of hypoxia/hypoxemia, and left sided pain. Patient History Medical History CKD (chronic kidney disease) (Acute) Hypertension (Acute) Hypothyroid (Acute) DM (diabetes mellitus) type II controlled with renal manifestation (Chronic) Diabetic neuropathy (Chronic) HLD (hyperlipidemia) (Chronic) Renal mass of unknown nature (Chronic) Surgical History H/O thyroidectomy (Chronic) Family History Father Diabetes mellitus Mother Diabetes mellitus Myocardial infarct Social History Smoking Status: Current every day smoker Family & Social History Family History Father Diabetes mellitus Mother Diabetes mellitus Myocardial infarct Safety & Behavioral: Feels Safe in Current Yes Environment Been Physically Hurt or No Threatened By a Person Tobacco & Substance use: Smoking Status denies Substance Use Type does not use Meds Home Medications Medication Instructions Recorded Confirmed Type hydralazine 100 mg PO TID #0 10/26/16 09/06/18 History metoprolol tartrate 12.5 mg PO BID #0 10/26/16 09/06/18 History [VITAMIN D3] 2,000 iu PO Q DAY #0 10/27/16 History atorvastatin [Lipitor] 20 mg PO DAILY #0 10/27/16 09/06/18 History clonidine [[id number]] 0.3 mg TOPICAL QWEEKSA #0 10/27/16 09/06/18 History liothyronine [Cytomel] 25 mcg PO QDAY #0 10/27/16 History amlodipine 10 mg PO DAILY 09/06/18 09/06/18 History doxazosin 2 mg PO DAILY 09/06/18 09/06/18 History gabapentin 300 mg PO DAILY 09/06/18 09/06/18 History glipizide 5 mg PO DAILY 09/06/18 09/06/18 History levothyroxine [Synthroid] 1 dose PO DIRECTED 09/06/18 History omeprazole 20 mg PO BID 09/06/18 09/06/18 History paroxetine HCl 10 mg PO DAILY 09/06/18 09/06/18 History sevelamer HCl [Renagel] 09/06/18 History sevelamer HCl [Renagel] 800 mg PO QNOON 09/06/18 09/06/18 History Allergies Allergy/AdvReac Type Severity Reaction Status Date / Time adhesive tape AdvReac Mild Flushing Verified 09/06/18 14:07 Review of Systems Review of Systems All systems reviewed & are unremarkable except as noted in HPI and below Exam Vital Signs (past 8 hours): - 09/06/18 09:09 09/06/18 09:15 09/06/18 11:30 Temperature 99.5 F Pulse Rate 86 78 Respiratory Rate 26 H 24 22 Blood Pressure 138/59 L Blood Pressure [Left Arm] 117/52 L Pulse Oximetry 86 L 95 92 09/06/18 12:01 09/06/18 12:31 09/06/18 13:44 Temperature Pulse Rate 76 73 72 Respiratory Rate 21 19 20 Blood Pressure Blood Pressure [Left Arm] 122/49 L 119/48 L 111/49 L Pulse Oximetry 93 92 95 Oxygen Delivery Method Nasal Cannula Oxygen Flow Rate 2 Narrative Exam Narrative: General: No acute distress, patient lying comfortably in bed. AAO x3 HEENT: PERRLA and EOMI bilaterally, moist mucous membranes, missing teeth Neck: Supple, no LAD or JVD CV: Regular rate rhythm, no gallops or murmurs appreciated Respiratory: Clear to auscultation in all lung trimble, no wheezing or crackles appreciated GI: Positive bowel sounds in all 4 quadrants, no tenderness to palpation. No organomegaly. Musculoskeletal: Moves all extremities Skin: No bruising or rashes noted Extremities: No edema noted. 2+ pulses in all 4 extremities Neuro: No focal deficits. AAO x3 Psych: Appropriate mood and affect. Able to make her own decisions Objective Labs Result Diagrams: 09/06/18 09:50 09/06/18 09:50 Labs: Laboratory Results - last 24 hr 09/06/18 09/06/18 09/06/18 09:50 09:50 09:50 WBC 3.1 L RBC 3.33 L Hgb 8.0 L Hct 23.9 L MCV 71.8 L MCH 23.9 L MCHC 33.3 RDW 15.3 H Plt Count 212 Neut % (Auto) Not Reportable Lymph % (Auto) Not Reportable [place] % (Auto) Not Reportable Eos % (Auto) Not Reportable Baso % (Auto) Not Reportable Lymph # (Auto) Not Reportable [place] # (Auto) Not Reportable Baso # (Auto) Not Reportable Total Counted 100 Seg Neutrophils % 33.0 L Band Neutrophils % 19.0 H Lymphocytes % (Manual) 14.0 L Atypical Lymphs % 1.0 H Monocytes % (Manual) 24.0 H Eosinophils % (Manual) 2.0 Metamyelocytes % 5.0 H Myelocytes % 2.0 H Neutrophils # (Manual) 1612 L RBC Morphology See below Hypochromasia 1+ H Anisocytosis 1+ H PT 15.0 H INR 1.3 APTT 51 H ABG pH ABG pCO2 ABG pO2 ABG HCO3 ABG Total CO2 ABG O2 Saturation ABG Base Excess FiO2 Sodium Potassium Chloride Carbon Dioxide BUN Creatinine Estimated GFR BUN/Creatinine Ratio Glucose Calcium Total Bilirubin AST ALT Alkaline Phosphatase Total Creatine Kinase CK-MB (CK-2) CK-MB (CK-2) Rel Index Troponin I B-Natriuretic Peptide < 100 Total Protein Albumin Globulin Albumin/Globulin Ratio Lipase Urine RBC Urine WBC Ur Squamous Epith Cells Ur Renal Epithelial Cell Uric Acid Crystals Urine Bacteria Hyaline Casts Granular Casts Ur Culture Indicated? Blood Type Antibody Screen Crossmatch 09/06/18 09/06/18 09/06/18 09:50 09:50 10:48 WBC RBC Hgb Hct MCV MCH MCHC RDW Plt Count Neut % (Auto) Lymph % (Auto) [place] % (Auto) Eos % (Auto) Baso % (Auto) Lymph # (Auto) [place] # (Auto) Baso # (Auto) Total Counted Seg Neutrophils % Band Neutrophils % Lymphocytes % (Manual) Atypical Lymphs % Monocytes % (Manual) Eosinophils % (Manual) Metamyelocytes % Myelocytes % Neutrophils # (Manual) RBC Morphology Hypochromasia Anisocytosis PT INR APTT ABG pH ABG pCO2 ABG pO2 ABG HCO3 ABG Total CO2 ABG O2 Saturation ABG Base Excess FiO2 Sodium 128 L Potassium 4.3 Chloride 100 Carbon Dioxide 18 L BUN 23 H Creatinine 1.50 H Estimated GFR 34.0 L BUN/Creatinine Ratio 15.3 Glucose 151 H Calcium 8.4 Total Bilirubin 0.8 AST 20 ALT 24 Alkaline Phosphatase 60 Total Creatine Kinase < 20 L CK-MB (CK-2) TNP CK-MB (CK-2) Rel Index TNP Troponin I < 0.012 B-Natriuretic Peptide Total Protein 6.6 Albumin 3.0 L Globulin 3.6 Albumin/Globulin Ratio 0.8 L Lipase 52 Urine RBC 1-5/hpf Urine WBC 1-5/hpf Ur Squamous Epith Cells 1-5 /hpf Ur Renal Epithelial Cell 0-1/hpf Uric Acid Crystals Moderate Urine Bacteria Moderate (10-30) H Hyaline Casts 1-5/lpf Granular Casts 30-100/lpf Ur Culture Indicated? Specimen cultured Blood Type O Positive Antibody Screen Negative Crossmatch See Detail 09/06/18 12:22 WBC RBC Hgb Hct MCV MCH MCHC RDW Plt Count Neut % (Auto) Lymph % (Auto) [place] % (Auto) Eos % (Auto) Baso % (Auto) Lymph # (Auto) [place] # (Auto) Baso # (Auto) Total Counted Seg Neutrophils % Band Neutrophils % Lymphocytes % (Manual) Atypical Lymphs % Monocytes % (Manual) Eosinophils % (Manual) Metamyelocytes % Myelocytes % Neutrophils # (Manual) RBC Morphology Hypochromasia Anisocytosis PT INR APTT ABG pH 7.33 L ABG pCO2 32.2 L ABG pO2 50 L ABG HCO3 17 L ABG Total CO2 18 L ABG O2 Saturation 83 L* ABG Base Excess -9.0 L FiO2 0.21 Sodium Potassium Chloride Carbon Dioxide BUN Creatinine Estimated GFR BUN/Creatinine Ratio Glucose Calcium Total Bilirubin AST ALT Alkaline Phosphatase Total Creatine Kinase CK-MB (CK-2) CK-MB (CK-2) Rel Index Troponin I B-Natriuretic Peptide Total Protein Albumin Globulin Albumin/Globulin Ratio Lipase Urine RBC Urine WBC Ur Squamous Epith Cells Ur Renal Epithelial Cell Uric Acid Crystals Urine Bacteria Hyaline Casts Granular Casts Ur Culture Indicated? Blood Type Antibody Screen Crossmatch Assessment & Plan Assessment & Plan narrative: 73-year-old female with past medical history of hypertension, hyperlipidemia, diabetes type 2, thyroid tumor status post resection and secondary hypothyroidism, diabetic neuropathy, CKD, renal cancer status post cryo resection presented to emergency department with left upper quadrant/cherst pain. She was found to be hypoxic/hypoxemic and is therefore admitted for further workup. 1. Hypoxia/hypoxemia -unknown chronicity or etiology at this time -differential diagnosis: Anemia vs. Pulmonary hypertension vs. Atelectasis vs. Pulmonary effusion -on admission patient was saturating 85% on room air, ABG significant for PaO2 of 50 -hemoglobin 8.0, hematocrit 23 -CTA PE and CT abdomen pelvis revealed left-sided atelectasis with bilateral s mall pleural effusions and pulmonary artery hypertension -patient was placed on supplemental oxygen 2 L, with improvement in saturation to 94%. Continue nasal cannula at this time -will get 2D echo to evaluate for structural heart disease and further assess pulmonary hypertension -given the hypoxia and low hemoglobin, will transfuse patient 2 units packed red blood cells -will initiate incentive spirometry for possible atelectasis 2. Left upper quadrant/chest pain -noncardiac in nature, unclear etiology at this time -lipase and LFTs are negative -troponin and BNP are negative -CT abdomen pelvis with no acute findings to suggest the symptoms -will initiate pain control with [place] 5/325 mg p.o. q.6 hours as needed 3. Hypertension -blood pressure stable at this time -resume amlodipine, clonidine, metoprolol, hydralazine home regimen -monitor blood pressure 4. Diabetes type 2 -with complications of diabetic neuropathy and CKD -blood glucose on admission 151 -resume gabapentin, glipizide home regimen -frequent Accu-Cheks, hypoglycemia protocol 5. Hyperlipidemia -resume atorvastatin home regimen 6. CKD, stage 4 -BUN 23, creatinine 1.5, unsure if this is patient's baseline -resume sevelamer home regimen medication 7. Hypothyroidism -due to thyroidectomy from previous thyroid tumor -resume levothyroxine and liothyronine home regimen 8. CT findings of esophagitis -per CT, there is thickening of the distal esophagus region which could be possible esophagitis, although the location of patient's pain does not correlate with this picture -will start patient on pantoprazole 20 mg p.o. daily -consider surgical consult for possible EGD in or outpatient 9. Nodules/cysts found on CT -per CTA PE and CT abdomen and pelvis, there are small nodules on pericardial sac, as well as renal cysts -follow-up likely be needed to Urology and Oncology 10. Microcytic anemia -unclear etiology at this time -hemoglobin 8.0, hematocrit 23.9 on admission -Guiac negative in ED -given the severe hypoxemia/hypoxia, will transfuse patient 2 units of packed red blood cells -will get iron studies prior to transfusion to further assess anemia Patient is DNR/DNI DVT prophylaxis with heparin subQ Dispo: Patient is here for evaluation of hypoxia/hypoxemia. Echo is pending. Transfusing 2 units of blood. Left upper quadrant/chest Pain control with [place].
[2018-09-06 15:15] LABS: Percent Iron Saturation 9 % (15-50); Total Iron Binding Capacity 251 ug/dL (265-497); Transferrin 169 mg/dL (206-381)
--- NOTE | 2018-09-06 16:37 | PC.NURSE ---
Addendum entered by Shila Atwood R.N. 09/06/18 20:45: Second unit hung. Pt continues to tolerate well. Up with assist to [facility]SC. Original Note: Addendum entered by Shila Atwood R.N. 09/06/18 17:39: PM shift Started 1st unit of PRBC, Pt is tolerating well. increased O2 to 3L. Original Note: Admission Pt arrived from ER, A/o x3, able to transfer from [facility] to bed with assist. Reports pain to L side ABD, 5/10. Declines offer for pain control at this time. Oriented to room and call light. Admission completed by Bere SOUZA. Daughter at bedside, updated on POC and blood to be started. 02 2L for hypoxia. 95% 2L. High fall risk.
[2018-09-06] MEDS: ONDANSETRON 4 MG ODT SL (17:53)
[2018-09-06] MEDS: HYDROCODONE/ACET 5/325 TABLET 1 TAB PO (17:55)
[2018-09-06] MEDS: DOXAZOSIN 2 MG TABLET PO (21:44)
[2018-09-06] MEDS: ATORVASTATIN 20 MG TABLET PO (21:44)
[2018-09-06] MEDS: HYDRALAZINE 25 MG TABLET 100 MG PO (21:45)
[2018-09-06] MEDS: HEPARIN 5,000 UNIT/ML VIAL 5000 UNIT SUBCUT (21:45)
[2018-09-06] MEDS: SEVELAMER 800 MG 1600 EACH PO (21:46)
[2018-09-07] VITALS (15 sets, daily range): BP systolic 113–131; BP diastolic 50–60; PULSE 70–96; RESP 16–20; TEMP 36.7–37.6; O2SAT 86–95
--- NOTE | 2018-09-07 | DI.RAD.S_ITS ---
PROCEDURE: XR CHEST 2V INDICATIONS: pneumonia TECHNIQUE: 2 views of the chest were acquired. COMPARISON: [facility], , CHEST 2 VIEW, 10/26/2016, 13:21. [facility], , XR CHEST 1V, 09/06/2018, 9:15. FINDINGS: Surgical changes and devices: None. Lungs and pleura: Consolidative radiopacities are redemonstrated at the left lung base. There may be a small left effusion. Mediastinum: Mediastinal contours are normal. Heart size is mildly enlarged, as before. Bones and chest wall: No suspicious bony abnormalities. Soft tissues appear unremarkable. IMPRESSION: 1. Findings most consistent with left basilar pneumonia. Followup to resolution recommended to ensure there is no underlying pulmonary neoplasm. 2. Cardiomegaly. Dictated by: Tiffany Allan M.D. on 09/07/2018 at 9:05 Approved by: Tiffany Allan M.D. on 09/07/2018 at 9:05
--- NOTE | 2018-09-07 02:48 | PC.NURSE ---
2350 Transfusion completed, Denies any pain, no sign & symptoms of blood transfusion reaction noted. Will monitor.
--- NOTE | 2018-09-07 02:50 | PC.NURSE ---
0250 C/O being cold & shivering, reports since I have my Thyroidectomy done 2 years ago, I been having chills & I get very cold. Provided with 2 warm blankets & increased thermostat to 80 degrees. Will cont. POC & monitor.
[2018-09-07] MEDS: PANTOPRAZOLE 40 MG TABLET PO (05:54)
[2018-09-07] MEDS: LEVOTHYROXINE 137 MCG TABLET PO (05:54)
[2018-09-07] MEDS: SODIUM CHLORIDE 0.9% 1,000 ML 150 ML IV (06:09)
[2018-09-07 07:45] LABS: Add Manual Diff / Slide Review NO; Basophils Absolute Auto 0 /uL (0-100); Basophils Percent Auto 0.7 % (0-2); Eosinophils Absolute Auto 100 /uL (0-450); Eosinophils Percent Auto 4.6 % (2-4); Hematocrit 30.9 % (36-46); Hemoglobin 10.3 g/dL (12.0-16.0); Lymphocytes Absolute Auto 200 /uL (1100-4500); Lymphocytes Percent Auto 10.5 % (25-40); Mean Corpuscular HGB Conc 33.3 % (30-36); Mean Corpuscular Hemoglobin 25.1 PG (26-34); Mean Corpuscular Volume 75.4 fL (80-100); Monocytes Absolute Auto 300 /uL (0-900); Monocytes Percent Auto 15.2 % (3-14); Neutrophils Absolute Auto 1500 /uL (1500-7000); Platelet Count 197 X10^3/uL (150-400); Red Cell Distribution Width 17.3 % (11.6-14.8); White Blood Cell Count 2.1 X10^3/uL (4.5-11.0)
[2018-09-07 07:56] LABS: Alanine Aminotransferase 23 IU/L (9-52); Albumin 2.7 g/dL (3.5-5.0); Albumin Globulin Ratio 0.8 (1.0-2.8); Alkaline Phosphatase 58 U/L (38-126); Aspartate Aminotransferase 18 IU/L (14-36); BUN Creatinine Ratio 14.3 (6-22); Bilirubin Total 0.9 mg/dL (0.2-1.3); Blood Urea Nitrogen 20 mg/dL (7-17); Calcium 7.6 mg/dL (8.4-10.2); Carbon Dioxide 18 mmol/L (22-32); Chloride 104 mmol/L (98-107); Estimated Glomerular Filt Rate 36.9 mL/min (>60); Globulin 3.5 g/dL (1.7-4.1); Glucose 93 mg/dL (80-110); HEMOLYSIS < 15 (0-50); Potassium 4.7 mmol/L (3.4-5.1); Sodium 133 mmol/L (137-145); Total Protein 6.2 g/dL (6.3-8.2)
[2018-09-07 08:26] LABS: Thyroid Stimulating Hormone 6.47 uIU/mL (0.47-4.68)
[2018-09-07] MEDS: levoFLOXacin 750 MG/150 ML PIGGYBACK 100 MG IV (10:01)
[2018-09-07] MEDS: AMLODIPINE 5 MG TABLET 10 MG PO (10:02)
[2018-09-07] MEDS: HYDRALAZINE 25 MG TABLET 100 MG PO ×3 (10:03→20:47)
[2018-09-07] MEDS: LIOTHYRONINE 5 MCG TABLET 25 MCG PO (10:03)
[2018-09-07] MEDS: SEVELAMER 800 MG 1600 EACH PO ×2 (10:05→20:50)
[2018-09-07] MEDS: METOPROLOL 12.5 MG TABLET PO ×2 (10:05→20:50)
[2018-09-07] MEDS: PARoxetine 10 MG TABLET PO (10:05)
[2018-09-07] MEDS: HEPARIN 5,000 UNIT/ML VIAL 5000 UNIT SUBCUT ×2 (10:06→20:47)
--- NOTE | 2018-09-07 10:17 | P.PN_ITS ---
Subjective Date Patient Seen: 09/07/18 Time Patient Seen: 10:17 Interval history: She is seen today to follow up her hypoxia, left upper quadrant/left chest pain and probable left basilar pneumonia. Initial testing yesterday suggested atelectasis at the left base. The white blood count is only 2.1. The CO2 level is 18. The albumin level is low again at 2.7. The hemoglobin is up to 10.3 after a 2 unit blood transfusion. She tells me that Dr. Chaves in [place] is her primary care. She has been complaining of feeling very cold and his huddles under many layers of blankets. A TSH will need to be done. A repeat chest x-ray appears to confirm a left basilar pneumonia as does the exam. She will be started on antibiotics. Her iron level is low at 23. Sodium was 128 and is now 133. It is unclear why her iron level is low. She says she has not been anemic before. Exam Vital Signs (past 8 hours): - 09/07/18 05:00 09/07/18 07:10 09/07/18 09:00 Temperature 98.0 F Pulse Rate 73 96 H Respiratory Rate 16 18 Blood Pressure 131/60 121/57 L Pulse Oximetry 93 95 90 L Oxygen Delivery Method Nasal Cannula Oxygen Flow Rate 2 Narrative Exam Narrative: She is alert and oriented x3 and in no apparent distress. She is covered with many layers of blankets, including a ?shroud? over her head. Heart is irregularly irregular without murmur. Lungs have left basilar fine crackles. Abdomen is soft, nontender, no organomegaly, bowel sounds positive. Extremities have no ankle edema. Objective Labs Result Diagrams: 09/07/18 07:35 09/07/18 07:35 Labs: Laboratory Results - last 24 hr 09/06/18 09/06/18 09/06/18 09:50 09:50 09:50 WBC 3.1 L RBC 3.33 L Hgb 8.0 L Hct 23.9 L MCV 71.8 L MCH 23.9 L MCHC 33.3 RDW 15.3 H Plt Count 212 Neut % (Auto) Not Reportable Lymph % (Auto) Not Reportable [place] % (Auto) Not Reportable Eos % (Auto) Not Reportable Baso % (Auto) Not Reportable Neut # (Auto) Lymph # (Auto) Not Reportable [place] # (Auto) Not Reportable Eos # (Auto) Baso # (Auto) Not Reportable Total Counted 100 Seg Neutrophils % 33.0 L Band Neutrophils % 19.0 H Lymphocytes % (Manual) 14.0 L Atypical Lymphs % 1.0 H Monocytes % (Manual) 24.0 H Eosinophils % (Manual) 2.0 Metamyelocytes % 5.0 H Myelocytes % 2.0 H Neutrophils # (Manual) 1612 L RBC Morphology See below Hypochromasia 1+ H Anisocytosis 1+ H PT 15.0 H INR 1.3 APTT 51 H ABG pH ABG pCO2 ABG pO2 ABG HCO3 ABG Total CO2 ABG O2 Saturation ABG Base Excess FiO2 Sodium Potassium Chloride Carbon Dioxide BUN Creatinine Estimated GFR BUN/Creatinine Ratio Glucose Calcium Iron TIBC % Saturation Transferrin Total Bilirubin AST ALT Alkaline Phosphatase Total Creatine Kinase CK-MB (CK-2) CK-MB (CK-2) Rel Index Troponin I B-Natriuretic Peptide < 100 Total Protein Albumin Globulin Albumin/Globulin Ratio Lipase TSH Urine RBC Urine WBC Ur Squamous Epith Cells Ur Renal Epithelial Cell Uric Acid Crystals Urine Bacteria Hyaline Casts Granular Casts Ur Culture Indicated? Blood Type Antibody Screen Crossmatch 09/06/18 09/06/18 09/06/18 09:50 09:50 09:50 WBC RBC Hgb Hct MCV MCH MCHC RDW Plt Count Neut % (Auto) Lymph % (Auto) [place] % (Auto) Eos % (Auto) Baso % (Auto) Neut # (Auto) Lymph # (Auto) [place] # (Auto) Eos # (Auto) Baso # (Auto) Total Counted Seg Neutrophils % Band Neutrophils % Lymphocytes % (Manual) Atypical Lymphs % Monocytes % (Manual) Eosinophils % (Manual) Metamyelocytes % Myelocytes % Neutrophils # (Manual) RBC Morphology Hypochromasia Anisocytosis PT INR APTT ABG pH ABG pCO2 ABG pO2 ABG HCO3 ABG Total CO2 ABG O2 Saturation ABG Base Excess FiO2 Sodium 128 L Potassium 4.3 Chloride 100 Carbon Dioxide 18 L BUN 23 H Creatinine 1.50 H Estimated GFR 34.0 L BUN/Creatinine Ratio 15.3 Glucose 151 H Calcium 8.4 Iron 23 L TIBC 251 L % Saturation 9 L Transferrin 169 L Total Bilirubin 0.8 AST 20 ALT 24 Alkaline Phosphatase 60 Total Creatine Kinase < 20 L CK-MB (CK-2) TNP CK-MB (CK-2) Rel Index TNP Troponin I < 0.012 B-Natriuretic Peptide Total Protein 6.6 Albumin 3.0 L Globulin 3.6 Albumin/Globulin Ratio 0.8 L Lipase 52 TSH Urine RBC Urine WBC Ur Squamous Epith Cells Ur Renal Epithelial Cell Uric Acid Crystals Urine Bacteria Hyaline Casts Granular Casts Ur Culture Indicated? Blood Type O Positive Antibody Screen Negative Crossmatch See Detail 09/06/18 09/06/18 09/07/18 10:48 12:22 07:35 WBC 2.1 L RBC 4.10 Hgb 10.3 L Hct 30.9 L MCV 75.4 L D MCH 25.1 L MCHC 33.3 RDW 17.3 H Plt Count 197 Neut % (Auto) 69.0 Lymph % (Auto) 10.5 L [place] % (Auto) 15.2 H Eos % (Auto) 4.6 H Baso % (Auto) 0.7 Neut # (Auto) 1500 Lymph # (Auto) 200 L [place] # (Auto) 300 Eos # (Auto) 100 Baso # (Auto) 0 Total Counted Seg Neutrophils % Band Neutrophils % Lymphocytes % (Manual) Atypical Lymphs % Monocytes % (Manual) Eosinophils % (Manual) Metamyelocytes % Myelocytes % Neutrophils # (Manual) RBC Morphology Hypochromasia Anisocytosis PT INR APTT ABG pH 7.33 L ABG pCO2 32.2 L ABG pO2 50 L ABG HCO3 17 L ABG Total CO2 18 L ABG O2 Saturation 83 L* ABG Base Excess -9.0 L FiO2 0.21 Sodium Potassium Chloride Carbon Dioxide BUN Creatinine Estimated GFR BUN/Creatinine Ratio Glucose Calcium Iron TIBC % Saturation Transferrin Total Bilirubin AST ALT Alkaline Phosphatase Total Creatine Kinase CK-MB (CK-2) CK-MB (CK-2) Rel Index Troponin I B-Natriuretic Peptide Total Protein Albumin Globulin Albumin/Globulin Ratio Lipase TSH Urine RBC 1-5/hpf Urine WBC 1-5/hpf Ur Squamous Epith Cells 1-5 /hpf Ur Renal Epithelial Cell 0-1/hpf Uric Acid Crystals Moderate Urine Bacteria Moderate (10-30) H Hyaline Casts 1-5/lpf Granular Casts 30-100/lpf Ur Culture Indicated? Specimen cultured Blood Type Antibody Screen Crossmatch 09/07/18 09/07/18 07:35 07:35 WBC RBC Hgb Hct MCV MCH MCHC RDW Plt Count Neut % (Auto) Lymph % (Auto) [place] % (Auto) Eos % (Auto) Baso % (Auto) Neut # (Auto) Lymph # (Auto) [place] # (Auto) Eos # (Auto) Baso # (Auto) Total Counted Seg Neutrophils % Band Neutrophils % Lymphocytes % (Manual) Atypical Lymphs % Monocytes % (Manual) Eosinophils % (Manual) Metamyelocytes % Myelocytes % Neutrophils # (Manual) RBC Morphology Hypochromasia Anisocytosis PT INR APTT ABG pH ABG pCO2 ABG pO2 ABG HCO3 ABG Total CO2 ABG O2 Saturation ABG Base Excess FiO2 Sodium 133 L Potassium 4.7 Chloride 104 Carbon Dioxide 18 L BUN 20 H Creatinine 1.40 H Estimated GFR 36.9 L BUN/Creatinine Ratio 14.3 Glucose 93 Calcium 7.6 L Iron TIBC % Saturation Transferrin Total Bilirubin 0.9 AST 18 ALT 23 Alkaline Phosphatase 58 Total Creatine Kinase CK-MB (CK-2) CK-MB (CK-2) Rel Index Troponin I B-Natriuretic Peptide Total Protein 6.2 L Albumin 2.7 L Globulin 3.5 Albumin/Globulin Ratio 0.8 L Lipase TSH 6.47 H Urine RBC Urine WBC Ur Squamous Epith Cells Ur Renal Epithelial Cell Uric Acid Crystals Urine Bacteria Hyaline Casts Granular Casts Ur Culture Indicated? Blood Type Antibody Screen Crossmatch Assessment & Plan Assessment & Plan narrative: 1. Hypoxia/hypoxemia -the etiology has narrowed down to left basilar pneumonia plus anemia. Both are being treated. -on admission patient was saturating 85% on room air, ABG significant for PaO2 of 50 -hemoglobin 8.0, hematocrit 23, now back up to 10.3. -CTA PE and CT abdomen pelvis revealed left-sided atelectasis with bilateral small pleural effusions and pulmonary artery hypertension, but chest x-ray today is read more definitively as left basilar pneumonia. -patient was placed on supplemental oxygen 2 L, with improvement in saturation to 94%. Continue nasal cannula at this time -will get 2D echo to evaluate for structural heart disease and further assess pulmonary hypertension 2. Left upper quadrant/chest pain -this appears to be caused by the pneumonia, most likely. -will continue pain control with [place] 5/325 mg p.o. q.6 hours as needed 3. Hypertension -blood pressure stable at this time -continue amlodipine, clonidine, metoprolol, hydralazine home regimen -monitor blood pressure 4. Diabetes type 2 -with complications of diabetic neuropathy and CKD -blood glucose on admission 151 -continue gabapentin, glipizide home regimen -frequent Accu-Cheks, hypoglycemia protocol 5. Hyperlipidemia -continue atorvastatin home regimen 6. CKD, stage 4 -BUN 23, creatinine 1.5, unsure if this is patient's baseline, now improved to BUN 20 and creatinine 1.4. -continue sevelamer home regimen medication 7. Hypothyroidism -due to thyroidectomy from previous thyroid tumor -resume levothyroxine and liothyronine home regimen -check TSH due to cold intolerance. 8. CT findings of esophagitis -per CT, there is thickening of the distal esophagus region which could be possible esophagitis, although the location of patient's pain does not correlate with this picture -will continue patient on pantoprazole 20 mg p.o. daily -consider surgical consult for possible EGD in or outpatient 9. Nodules/cysts found on CT -per CTA PE and CT abdomen and pelvis, there are small nodules on pericardial sac, as well as renal cysts -follow-up likely be needed to Urology and Oncology 10. Microcytic anemia/neutropenia -unclear etiology at this time -hemoglobin 8.0, hematocrit 23.9 on admission, now up to 10.3, white blood count down to 2.1 -Guiac negative in ED -given the severe hypoxemia/hypoxia, was given 2 units of packed red blood cells -recheck tomorrow and on Sunday discuss further workup. Patient is DNR/DNI DVT prophylaxis with heparin subQ Quality VTE Deep Vein Thrombosis/Pulmonary Embolism Present on Admission: No
[2018-09-07] MEDS: SEVELAMER 800 MG 800 EACH PO (12:42)
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
--- NOTE | 2018-09-07 13:42 | PC.NURSE ---
of patient reported that patient used a Flushable Adult Wipe to clean her face, and shortly after developed many raised bump like redness rash to the right side of her face. Used a wash cloth with plain warm tap water to rinse the effected area.
--- NOTE | 2018-09-07 13:44 | CM.DANOTE ---
Patient is a 73 year old female who was admitted on 09/06/18 for Abd Pain. Pt has [facility] and [employer] for insurance and her PCP is Dr. Jerome Tracey. EMR was reviewed. Per MD, pt's CT showed multiple cysts and to likely have follow up with Urology and Oncology. Pt currently with hypoxia and on oxygen and requiring blood transfusion and likely pneumonia and here a couple days. SW met bedside with pt and explained role and updated white board and pt confirmed that she lives at home in [place] with her /DPOA Dc. Pt is mostly Independent with ADL's at baseline. Pt was last admitted to [facility] in October 2016 and discharged home with [facility] and pt felt that she did not really need HH at the time and she was back to baseline and denies any hx of SNF. Pt has two supportive adult Dtrs, one who lives in [place] and the other lives in [place]. Pt states that she feels below baseline and leading up to admit was feeling more unsteady with ambulation and began using the FWW that she has but hadn't needed up until now. Pt glad to be having a PT/OT eval while admitted. Plan: SW to follow for PT/OT eval and recommendations to determine if pt will be safe for d/c home with spouse when stable. SW to follow for any further identified discharge planning needs. PHILIP Matos Discharge Planning/Care Management CM Discharge Assessment Start: 09/07/18 13:30 Freq: Status: Active Protocol: Document 09/07/18 13:30 BF (Rec: 09/07/18 13:44 BF [id number]) Discharge Planning Assessment Assigned Wheel Installer PHILIP Talley DPLEVAR/Assigned Designee Name Dc Contact Information [phone] Advance Directives? No History Provided By Patient Family Member Medical Record Has Patient been admitted in last 30 No days? Prior Living Arrangements House Household Members spouse Type of transporation used prior to Drives own vehicle admit Independent with ADL's Yes Is patient alert and oriented? Yes Caregiver for Another No Comment Waiting for PT/OT eval and recommendations Barriers to Discharge No Discharge Plan Home Transportation Arrangement Patient's spouse or Dtr could likely provide transport at d/ c if stable for safe return home. Additional Comment Waiting for PT/OT eval Whiteboard Updated in Patient Room with Yes name and ext. # of Wheel Installer Review Status In Process Please Provide Date Initial DC 09/07/18 Assessment Was Performed Next Review Type Continued Stay Review
--- NOTE | 2018-09-07 14:10 | PT.IIE ---
Surgical History (Last Updated 09/06/18 @ 14:50 by Elly Brunner MD) H/O thyroidectomy (Chronic) Medical History (Last Updated 09/06/18 @ 16:00 by Bibi Hager RN) CKD (chronic kidney disease) (Acute) Hypertension (Acute) Hypothyroid (Acute) DM (diabetes mellitus) type II controlled with renal manifestation (Chronic) Diabetic neuropathy (Chronic) HLD (hyperlipidemia) (Chronic) Renal mass of unknown nature (Chronic) Physical Therapy Inpatient Evaluation/Re-Eval M1 PT/OT-IP Prior Functional Status Start: 09/07/18 15:50 Freq: NEEDED Status: Active Protocol: Document 09/07/18 14:10 RCC (Rec: 09/07/18 16:07 [facility] [id number]) Medical Review Prior Functional Status Medical History Reviewed Yes Mobility and Gait gait without a device at home Activities of Daily Living and IADL's indep. I/ADLs Social History Household Members spouse Living Arrangements House Number of Floors (Floors) Two Floors Number of Stairs To Enter/Railing? 7 SE B rails to enter/exit, 7 steps to get to main level with rail on L ascending Home Environment Standard Height Toilet Tub/Shower Home Equipment Front Wheel Walker Additional Social History Comment Pt with c/o LUQ/chest pain, found to be hypoxic in ER @ 85 -86% on RA. She was found to have probable L basilar pneumonia. Pt lives with spouse, Kuldip, in [place]. Kuldip can assist with needs at home. Pt not on home O2. Hgb 10.4 and Hct 30.9 after transfusion . M2 PT-IP Current Condition Start: 09/07/18 15:50 Freq: NEEDED Status: Active Protocol: Document 09/07/18 14:10 RCC (Rec: 09/07/18 16:07 [facility] [id number]) Physical Therapy Current Condition Current Condition Evaluation Date 09/07/18 Treatment Diagnosis LUQ/chest pain, pneumonia, impaired activity tolerance Precautions Other Precautions monitor LA/O2 M3 PT-IP Subjective Start: 09/07/18 15:50 Freq: NEEDED Status: Active Protocol: Document 09/07/18 14:10 RCC (Rec: 09/07/18 16:07 [facility] [id number]) Subjective Physical Therapy Visit Type Type Initial Evaluation Visit Start Time 14:10 Visit Stop Time 14:50 Total Visit Minutes 40 Number of X RAY DEVELOPING MACHINE OPERATOR Visits 0 Physical Therapy Visit Comments Patient Comments pt states she has been dealing with SOB for multiple weeks Patient Goals to be able to go home, does not want to go to rehab. M4 PT-IP Mobility and Gait Start: 09/07/18 15:50 Freq: NEEDED Status: Active Protocol: Document 09/07/18 14:10 [facility] (Rec: 09/07/18 16:07 [facility] [id number]) PT-Bed Mobility Assessment Supine to Sit Supine to Sit Minimal Assistance 1 Person Assistance Scooting Scooting to Edge of Bed Contact Guard Assistance PT-Transfer Assessment Sit to and From Stand Sit to and from Stand Minimal Assistance 1 Person Assistance Equipment Transfer Assistive Device Gait Belt Front Wheeled Walker Transfers Transfer Destination Chair Bedside Commode Transfer Technique Stand Step Pivot Transfer Ability Level of Assist Contact Guard Assistance Gait Assessment Gait Gait Assistance Required: Contact Guard Assist Distance (Feet) 10 Assistive Devices Assistive Device Gait Belt Front Wheeled Walker Gait Deviations General Gait Pattern Decreased Stride Length Decreased Feet Clearance Flexed Trunk Step-to Gait Factors Limiting Gait Function Factors Limiting Gait Function Decreased Activity Tolerance Decreased Strength Pain Poor Balance Comments Gait Comments Pt fatigued after to [facility] for urination (NETWORK DESIGNER present) then 10 ft ambulation on 3-L O2. O2 saturation decreased to 89% on 3-L O2 with gait, increased to 95% at rest, taken down to 2 L O2 at rest (94% at rest). PT-Balance Assessment Sitting Balance and Reactions Static Sitting Balance Ability Good Dynamic Sitting Balance Ability Good Standing Balance and Reactions Static Standing Balance Ability Fair Dynamic Standing Balance Ability Poor Device Used FWW M5 PT-IP Objective Assessments Start: 09/07/18 15:50 Freq: NEEDED Status: Active Protocol: Document 09/07/18 14:10 [facility] (Rec: 09/07/18 16:07 [facility] [id number]) Orientation Orientation/Cognition Level of Alertness Alert Strength Lower Extremity Strength Assessment Bilaterally Impaired Hip flexion 3+/5 B Knee flexion 3/5 R and 3+/5 L; extension 3+/5 B Ankle DF 4/5 B M6 PT-IP Treatment Start: 09/07/18 15:50 Freq: NEEDED Status: Active Protocol: Document 09/07/18 14:10 [facility] (Rec: 09/07/18 16:07 [facility] [id number]) Physical Therapy Treatment Education Education Provided Safety M7 PT-IP Assessment and Plan Start: 09/07/18 15:50 Freq: NEEDED Status: Active Protocol: Document 09/07/18 14:10 RCC (Rec: 09/07/18 16:07 [facility] [id number]) PT Summary Assessment and Plan Potential Rehabilitation Potential Good Status of Condition at Evaluation Unstable Summary Impairments Strength Balance Bed Mobility Transfers Gait Activity Tolerance Assessment Summary Pt very fatigued with short gait (10 ft) on 3-L O2 this session, not able to tolerate more activity. Her O2 saturation decreased to 89% on 3-L O2 after short gait, but recovered to WNL after 2 min seated rest. Pt is well below her prior level of function, and given her limited ability to tolerate gait, she would not be able to tolerate stair training at this time, which she will need to be able to manage 14 steps total to safely be able to enter/exit home. Pt requires further assessment, but at this time she is not safe or fit to d/c home. She may require SNF rehabilitation upon d/c, although both pt and spouse are not agreeable to this. Goals Bed Mobility Goal Standby Assistance Transfer Goal Standby Assistance Gait Goal Standby Assistance Front Wheel Walker Gait Distance 50 Other Goals up/down 14 steps with CGA and unilat rail STG: gait x35 ft with FWW and SBA in 2 days bed mobility CGA in 2 days Days to Meet Goals 5 Frequency of Treatment Frequency Of Treatment Twice a Day Treatment Plan Physical Therapy Treatment Plan Bed Mobility Training Transfer Training Gait Training Therapeutic Exercise Balance Retraining Discharge Planning Neuromuscular Re-ed Other Recommendations and Next Treatment progress gait (monitor LA and Focus O2), bed mobility and STS; stairs prior to d/c. Recommendations To Nursing Amount of Assist Needed 1 Person Assist Discharge Recommendations PT Discharge Recommendations SNF Rehab Other Discharge Recommendations SNF vs. home with / assist and HH
--- NOTE | 2018-09-07 14:20 | OT.IP.TRT ---
Occupational Therapy Treatment Note M3 OT- IP Subjective and Pain Start: 09/07/18 18:39 Freq: Status: Active Protocol: Document 09/07/18 14:20 PJM (Rec: 09/07/18 18:40 PJM [id number]) OT- Subjective Occupational Therapy Visit Type Type Administrative Note Visit Start Time 14:20 Notes OT referral received. Pt declined assessment at this time due to fatigue and just finished with P.T. Will attempt again. No charge.
[2018-09-07] MEDS: CHOLECALCIFEROL (VITAMIN D3) 1,000 UNIT TABLET 2000 UNIT PO (20:47)
[2018-09-07] MEDS: DOXAZOSIN 2 MG TABLET PO (20:48)
[2018-09-07] MEDS: GABAPENTIN 300 MG CAPSULE PO (20:48)
[2018-09-07] MEDS: ATORVASTATIN 20 MG TABLET PO (20:49)
[2018-09-08] VITALS (15 sets, daily range): BP systolic 111–149; BP diastolic 47–59; PULSE 73–86; RESP 16–20; TEMP 36.7–38.4; O2SAT 87–97
[2018-09-08] MEDS: LIOTHYRONINE 25 MCG TABLET PO (05:23)
[2018-09-08] MEDS: PANTOPRAZOLE 40 MG TABLET PO (05:23)
[2018-09-08] MEDS: LEVOTHYROXINE 137 MCG TABLET PO (05:23)
[2018-09-08 06:12] LABS: Add Manual Diff / Slide Review NO; Basophils Absolute Auto 0 /uL (0-100); Basophils Percent Auto 0.2 % (0-2); Eosinophils Absolute Auto 100 /uL (0-450); Eosinophils Percent Auto 2.3 % (2-4); Hematocrit 31.6 % (36-46); Hemoglobin 10.2 g/dL (12.0-16.0); Lymphocytes Absolute Auto 300 /uL (1100-4500); Lymphocytes Percent Auto 8.5 % (25-40); Mean Corpuscular HGB Conc 32.1 % (30-36); Mean Corpuscular Hemoglobin 24.7 PG (26-34); Mean Corpuscular Volume 76.8 fL (80-100); Monocytes Absolute Auto 400 /uL (0-900); Monocytes Percent Auto 12.7 % (3-14); Neutrophils Absolute Auto 2400 /uL (1500-7000); Neutrophils Percent Auto 76.3 % (50-75); Platelet Count 196 X10^3/uL (150-400); Red Blood Cell Count 4.12 X10^6/uL (4.0-5.2); Red Cell Distribution Width 17.2 % (11.6-14.8); White Blood Cell Count 3.1 X10^3/uL (4.5-11.0)
[2018-09-08 06:23] LABS: BUN Creatinine Ratio 11.8 (6-22); Blood Urea Nitrogen 20 mg/dL (7-17); Calcium 7.8 mg/dL (8.4-10.2); Carbon Dioxide 17 mmol/L (22-32); Chloride 103 mmol/L (98-107); Estimated Glomerular Filt Rate 29.5 mL/min (>60); Glucose 94 mg/dL (80-110); HEMOLYSIS < 15 (0-50); Potassium 4.7 mmol/L (3.4-5.1); Sodium 130 mmol/L (137-145)
[2018-09-08] MEDS: SODIUM CHLORIDE 0.9% FLUSH 10 ML IV ×2 (08:56→21:07)
[2018-09-08] MEDS: HEPARIN 5,000 UNIT/ML VIAL 5000 UNIT SUBCUT ×2 (08:57→20:54)
[2018-09-08] MEDS: glipiZIDE 5 MG TABLET PO (08:57)
[2018-09-08] MEDS: LEVOTHYROXINE 150 MCG TABLET PO (08:57)
[2018-09-08] MEDS: AMLODIPINE 5 MG TABLET 10 MG PO (08:57)
[2018-09-08] MEDS: HYDRALAZINE 25 MG TABLET 100 MG PO ×2 (08:58→15:22)
[2018-09-08] MEDS: PARoxetine 10 MG TABLET PO (08:59)
[2018-09-08] MEDS: METOPROLOL 12.5 MG TABLET PO (09:00)
[2018-09-08] MEDS: SEVELAMER 800 MG 1600 EACH PO (09:01)
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
--- NOTE | 2018-09-08 10:58 | PT.IPTN ---
Current Diagnoses Pneumonia, unspecified organism (09/07/18) Physical Therapy Treatment Note M2 PT-IP Current Condition Start: 09/07/18 15:50 Freq: NEEDED Status: Active Protocol: Document 09/07/18 14:10 RCC (Rec: 09/07/18 16:07 RCC [id number]) Physical Therapy Current Condition Current Condition Evaluation Date 09/07/18 Treatment Diagnosis LUQ/chest pain, pneumonia, impaired activity tolerance Precautions Other Precautions monitor OR/O2 M3 PT-IP Subjective Start: 09/07/18 15:50 Freq: NEEDED Status: Active Protocol: Document 09/08/18 10:15 CLB (Rec: 09/08/18 10:57 CLB [id number]) Subjective Physical Therapy Visit Type Type Treatment Note Visit Start Time 10:15 Visit Stop Time 10:30 Total Visit Minutes 15 Number of [employer]ER Visits 1 Physical Therapy Visit Comments Patient Comments Pt wanting to get back to bed. M4 PT-IP Mobility and Gait Start: 09/07/18 15:50 Freq: NEEDED Status: Active Protocol: Document 09/08/18 10:15 CLB (Rec: 09/08/18 10:57 CLB [id number]) PT-Bed Mobility Assessment Sit to Supine Sit to Supine Minimal Assistance Head of Bed Elevated Bedrails PT-Transfer Assessment Sit to and From Stand Sit to and from Stand Minimal Assistance 1 Person Assistance Equipment Transfer Assistive Device Gait Belt Front Wheeled Walker Transfers Transfer Destination Bed Transfer Technique Stand Step Pivot Transfer Ability Level of Assist Contact Guard Assistance Comments Mobility Comments Pt required Min A sit-stand and sit-supine with cues for hand placement. Gait Assessment Gait Gait Assistance Required: Contact Guard Assist Distance (Feet) 10 Assistive Devices Assistive Device Gait Belt Front Wheeled Walker Gait Deviations General Gait Pattern Decreased Stride Length Decreased Feet Clearance Flexed Trunk Step-to Gait Factors Limiting Gait Function Factors Limiting Gait Function Decreased Activity Tolerance Decreased Strength Pain Poor Balance Comments Gait Comments Pt ambulated ~10ft from chair to left side of bed. Pt O2 on RA 92 before ambulating as pt sat in chair, O2 on RA after ambulating and getting into bed 84% then increased to 91% after 45 seconds of PLB. Stair Climbing Assessment Comments Stair Climbing Comments unable at this time. M5 PT-IP Objective Assessments Start: 09/07/18 15:50 Freq: NEEDED Status: Active Protocol: Document 09/07/18 14:10 RCC (Rec: 09/07/18 16:07 RCC [id number]) Orientation Orientation/Cognition Level of Alertness Alert Strength Lower Extremity Strength Assessment Bilaterally Impaired Hip flexion 3+/5 B Knee flexion 3/5 R and 3+/5 L; extension 3+/5 B Ankle DF 4/5 B M6 PT-IP Treatment Start: 09/07/18 15:50 Freq: NEEDED Status: Active Protocol: Document 09/07/18 14:10 RCC (Rec: 09/07/18 16:07 RCC [id number]) Physical Therapy Treatment Education Education Provided Safety M7 PT-IP Assessment and Plan Start: 09/07/18 15:50 Freq: NEEDED Status: Active Protocol: Document 09/08/18 10:15 CLB (Rec: 09/08/18 10:57 CLB [id number]) PT Summary Assessment and Plan Summary Impairments Strength Balance Bed Mobility Transfers Gait Activity Tolerance Assessment Summary Pt continues to fatigue with short gait due to decreased activity tolerance. Pt ambulated ~10ft on RA with decrease in O2 to 84% with recovery to 91% within 45 seconds of PLB. Pt may require SNF rehab before d/c home depending on progress during hospital stay. Pt has 14 stairs to navigate once home and pt in unable to tolerate stair climbing at this time. Goals Bed Mobility Goal Standby Assistance Transfer Goal Standby Assistance Gait Distance 50 Other Goals up/down 14 steps with CGA and unilat rail STG: gait x35 ft with FWW and SBA in 2 days bed mobility CGA in 2 days Days to Meet Goals 5 Frequency of Treatment Frequency Of Treatment Twice a Day Treatment Plan Physical Therapy Treatment Plan Bed Mobility Training Transfer Training Gait Training Therapeutic Exercise Balance Retraining Discharge Planning Neuromuscular Re-ed Other Recommendations and Next Treatment progress gait (monitor OR and Focus O2), bed mobility and STS; stairs prior to d/c. Recommendations To Nursing Amount of Assist Needed 1 Person Assist Discharge Recommendations PT Discharge Recommendations SNF Rehab Other Discharge Recommendations SNF vs. home with 24/ assist and HH
--- NOTE | 2018-09-08 11:05 | P.PN_ITS ---
Subjective Date Patient Seen: 09/08/18 Time Patient Seen: 11:05 Interval history: She is seen today to follow up her pneumonia, right thumb infection, anemia, leukopenia, new facial rash. The echocardiogram shows no valvular disease. The ejection fraction is 60-65%. There is a trivial pe ricardial effusion. The TSH is 6.47 so the levothyroxine dose will need to be increased. The sodium is 130 with GFR 29 and a CO2 of 17. The white blood count has risen from 2.1 up to 3.1 and hemoglobin is stable at 10.1. The thumb redness has improved. She was seen by Orthopedics today. Exam Vital Signs (past 8 hours): - 09/08/18 03:29 09/08/18 08:19 09/08/18 09:20 Temperature 99.5 F 101.1 F H Pulse Rate 81 80 Respiratory Rate 18 18 Blood Pressure 126/47 L 129/59 L Pulse Oximetry 95 95 92 Oxygen Delivery Method Room Air Oxygen Flow Rate 2 Narrative Exam Narrative: She is alert and oriented x3. No apparent distress. She is less bundled up and cold intolerant appearing today. Lungs have less crackles at the left base than yesterday. Heart is regular rate and rhythm without murmur. Extremities have no ankle edema. The right thumb pad is no longer as red or swollen. The necrotic central area is still present and tender. Objective Labs Result Diagrams: 09/08/18 05:40 09/08/18 05:40 Labs: Laboratory Results - last 24 hr 09/08/18 09/08/18 05:40 05:40 WBC 3.1 L RBC 4.12 Hgb 10.2 L Hct 31.6 L MCV 76.8 L MCH 24.7 L MCHC 32.1 RDW 17.2 H Plt Count 196 Neut % (Auto) 76.3 H Lymph % (Auto) 8.5 L [place] % (Auto) 12.7 Eos % (Auto) 2.3 Baso % (Auto) 0.2 Neut # (Auto) 2400 Lymph # (Auto) 300 L [place] # (Auto) 400 Eos # (Auto) 100 Baso # (Auto) 0 Sodium 130 L Potassium 4.7 Chloride 103 Carbon Dioxide 17 L BUN 20 H Creatinine 1.70 H Estimated GFR 29.5 L BUN/Creatinine Ratio 11.8 Glucose 94 Calcium 7.8 L Assessment & Plan Assessment & Plan narrative: 1. LLL Pneumonia with Hypoxia without respiratory failure. -the etiology of her occult hypoxia narrowed down to left basilar pneumonia plus anemia. Both are being treated. -on admission patient was saturating 85% on room air, ABG significant for PaO2 of 50 -hemoglobin 8.0, hematocrit 23, now back up to 10.2.. -CTA PE and CT abdomen pelvis revealed left-sided atelectasis with bilateral small pleural effusions and pulmonary artery hypertension, but chest x-ray yesterday is read more definitively as left basilar pneumonia. -patient was placed on supplemental oxygen 2 L, with improvement in saturation to 94%. Continue nasal cannula 02 at this time -echo report is 60-65% ejection fraction with no valvular disease and only a trivial pericardial effusion. 2. Left upper quadrant/chest pain -this appears to be caused by the pneumonia. -will continue pain control with [place] 5/325 mg p.o. q.6 hours as needed 3. Hypertension -blood pressure stable at this time -continue amlodipine, clonidine, metoprolol, hydralazine home regimen -monitor blood pressure 4. Diabetes type 2 -with complications of diabetic neuropathy and CKD -blood glucose on admission 151 -continue gabapentin, glipizide home regimen -frequent Accu-Cheks, hypoglycemia protocol 5. Hyperlipidemia -continue atorvastatin home regimen 6. CKD, stage 4 -BUN 23, creatinine 1.5, unsure if this is patient's baseline, now with BUN 20 and creatinine 1.7. -continue sevelamer home regimen medication 7. Hypothyroidism -due to thyroidectomy from previous thyroid tumor -continue levothyroxine and liothyronine home regimen -TSH is high at 6.47 so will increase levothyroxine to 0.[address] findings of esophagitis -per CT, there is thickening of the distal esophagus region which could be possible esophagitis, although the location of patient's pain does not correlate with this picture -will continue patient on pantoprazole 20 mg p.o. daily -consider surgical consult for possible EGD in or outpatient 9. Nodules/cysts found on CT -per CTA PE and CT abdomen and pelvis, there are small nodules on pericardial sac, as well as renal cysts -follow-up likely be needed to Urology and Oncology 10. Microcytic anemia/neutropenia -unclear etiology at this time -hemoglobin 8.0, hematocrit 23.9 on admission, now up to 10.3, white blood count down to 2.1 -Guiac negative in ED -given the severe hypoxemia/hypoxia, was given 2 units of packed red blood cells -recheck tomorrow and then on Sunday discuss further workup - EGD/Colonoscpy? Hemoccult was negative. 11. Hyponatremia - Repeat BMP tomorrow. Patient is DNR/DNI DVT prophylaxis with heparin subQ Quality VTE Deep Vein Thrombosis/Pulmonary Embolism Present on Admission: No
[2018-09-08] MEDS: CEFTRIAXONE 1 GM/50 ML FROZ.PIGGY IV (12:59)
[2018-09-08] MEDS: SODIUM CHLORIDE 0.9% 250 ML 21 ML IV (12:59)
[2018-09-08] MEDS: SEVELAMER 800 MG 800 EACH PO (13:06)
--- NOTE | 2018-09-08 13:34 | CM.DPC ---
DCP Cont: Per PT, pt is below baseline and fatigues easily and currently recommending SNF pending pt progress. Pt still remains on oxygen and does not have home oxygen at baseline. SW met bedside with pt and explained role again and pt states she feels a little better today although still requiring oxygen and is aware that she fatigues easily and has not been able to ambulate much. SW discussed SNF rehab and pt has no hx of SNF and SW discussed the purpose and Medicare coverage of SNF. Pt states that her preference is home and is hopeful that she will improve during her stay for safe d/c home with supportive spouse. SW discussed spouse participating in Caregiver training with PT and pt very agreeable with including him in therapy. Pt hesitant to have SW make any SNF referrals at this time but states she will consider it as a possible option if she does not improve to being closer to baseline by discharge. Plan: SW to follow closely after further PT and caregiver training towards determining if pt will be safe for d/c home vs need for SNF referral. Gerri Jauregui MSW
[2018-09-08] MEDS: AZITHROMYCIN 500 MG in DEXTROSE 5% IN WATER 250 ML IV (13:43)
--- NOTE | 2018-09-08 14:04 | PT.IPTN ---
Current Diagnoses Pneumonia, unspecified organism (09/07/18) Physical Therapy Treatment Note M2 PT-IP Current Condition Start: 09/07/18 15:50 Freq: NEEDED Status: Active Protocol: Document 09/07/18 14:10 RCC (Rec: 09/07/18 16:07 RCC [id number]) Physical Therapy Current Condition Current Condition Evaluation Date 09/07/18 Treatment Diagnosis LUQ/chest pain, pneumonia, impaired activity tolerance Precautions Other Precautions monitor FL/O2 M3 PT-IP Subjective Start: 09/07/18 15:50 Freq: NEEDED Status: Active Protocol: Document 09/08/18 14:00 CLB (Rec: 09/08/18 14:04 CLB [id number]) Subjective Physical Therapy Visit Type Type Patient Refusal Notes Pt refused stating she was tired and wanted to stay in bed. Will check back with pt tomorrow.
[2018-09-08] MEDS: diphenhydrAMINE 25 MG TABLET 50 MG PO (16:51)
[2018-09-08] MEDS: DEXAMETHASONE 4 MG/ML VIAL IV (17:53)
[2018-09-08 19:54] LABS: Fractionated Inspired Oxygen 24; Oxygen Saturation ABG 94 % (95-100); PCO2 ABG 26.8 mmHg (35-45); PO2 ABG 74 mmHg (80-100); TCO2 ABG 15 mmol/L (21-31); pH ABG 7.34 (7.35-7.45)
[2018-09-08 19:55] LABS: HCO3 ABG 15 mmol/L (22-26)
[2018-09-08] MEDS: DEXTROSE 5%-0.9% NS 1,000 ML 84 ML IV (20:00)
--- NOTE | 2018-09-08 20:48 | RT ---
Pt wears home CPAP. Pt's called, he will bring it tomorrow. Nurse Sandhu contacted Hospitalist, and will put order for NAKUL protocol.
[2018-09-08] MEDS: METOPROLOL IR 25 MG TABLET 12.5 MG PO (20:52)
--- NOTE | 2018-09-08 22:42 | RT ---
Pt set up on hosp CPAP, no complications. O2 sats on CPAP, 1 lpm_94%, pulse 78, seems to tolerate well.
--- NOTE | 2018-09-08 23:23 | PC.NURSE ---
evening shift note- Patient in bed resting quietly with eyes closed. Rash to face noted at start of shift. Day Shift nurse had reported rash to face started last evening and was only on patients face and a little on neck. During first assessment I noted a raised red papular type rash all over face. Patient reported the rash rash did not itch or hurt at that time. at 1650 when giving patient a one time dose of benadryl patient appeared to have a difficult time swallowing. Patient reported pain and difficulty when trying to swallow. when patient was able to get some water down chocking and coughing was noted. Gave PO benadryl in apple sause, patient able to swallow better but still reported pain with swallow. Inspected mouth at that time, saw a few time white patched to back of throat. Photos taken of rash with unit camera with patients permission. just after 1999 while patient was being assisted with oral care patient reported thtat it feels like my mouths on fire. examined mouth again and found tongue to appear swollen, red, with sores noted to tongue. taked with dr sullivan reguarding the continued escalation of symptoms. dr murrell came with me to patient room, blisters were noted to be forming to papulars noted during assessment. each time patient was checked on more paplulars were becoming blisters and rash was known spreading to back and down back. patient continues to report to pain and no itching at rash sites. dr. Cheatham called regaurding patient. dr cheatham examined patient and wrote new orders.
[2018-09-09] VITALS (13 sets, daily range): BP systolic 111–134; BP diastolic 53–70; PULSE 66–88; RESP 16–21; TEMP 36.3–36.4; O2SAT 94–99
--- NOTE | 2018-09-09 | DI.RAD.S_ITS ---
PROCEDURE: XR FINGER RT MIN 2V INDICATIONS: rt thumb abscess, r/o foreign body TECHNIQUE: AP hand, 2 views of the right first finger acquired. COMPARISON: None. FINDINGS: Bones: No fractures or dislocations. No suspicious bony lesions. Soft tissues: No suspicious soft tissue calcifications. There is a region of focal soft tissue swelling along the palmar aspect of the first distal phalanx without underlying foreign body. IMPRESSION: No gas in the soft tissues valve, no foreign body seen. Focal soft tissue prominence at the thumb as discussed consistent with abscess formation as clinically indicated. Dictated by: Yuval Orozco M.D. on 09/09/2018 at 10:06 Approved by: Yuval Orozco M.D. on 09/09/2018 at 10:07
[2018-09-09] MEDS: ACYCLOVIR IV (01:04)
[2018-09-09] MEDS: DEXAMETHASONE 10 MG/ML VIAL 8 MG IV ×2 (01:04→08:06)
[2018-09-09] MEDS: WATER IV (01:04)
[2018-09-09] MEDS: DEXTROSE 5% IV (01:04)
[2018-09-09] MEDS: LIDOCAINE VISCOUS 2% 30 ML, MAG HYDROX/ALUMINUM/SIMETH SUS 30 ML, NYSTATIN SUSP 3,000,0... MM ×4 (01:46→23:51)
--- NOTE | 2018-09-09 02:18 | PC.NURSE ---
Addendum entered by Sherry Cabrera R.N. 09/09/18 07:07: Dr Cheatham informed that patient had only 125cc UOP this shift and felt urge to void but unable to urinate so bladder scan done showing 568cc in bladder. New order to in/out cath which was done with UOP of 575 obtained. Patient tolerated procedure well. Original Note: Addendum entered by Sherry Cabrera R.N. 09/09/18 05:59: Slept at intervals. Denies any pain this morning. Noted dime size, dull red, raised area on pad of right thumb which she had on admit; patient states not as red or painful. When drinking water coughs when swallowing but was able to take pills in applesauce without any coughing. States she feels the magic mouthwash helped so administered another 7.5ml dose (was instructed by night pharmacist to give 5-10ml). Original Note: Addendum entered by Sherry Cabrera R.N. 09/09/18 02:24: When wiping perineum after voiding had bright red blood on wipe; noted to have hemorrhoids. No hematuria noted. Original Note: Patient is alert and oriented. Breath sounds coarse/diminished throughout with inspiratory crackles in left LL. On oxygen at 2L/min with sat of 97% and is on continuous pulse oximetry. HRR; is on telemetry and was SR w/BBB at 0000 reading. Denies nausea. BT present and abdomen is soft. Up to BSC to void; urine clear xavi. Able to turn self in bed but due to weakness/ unsteadiness is assisted to BSC with use of walker and staff assist. Has red, raised welt like rash across face and smaller raised rash (some blistery looking) on neck, upper chest, upper/mid back and anterior/inner thighs. Also has lesions on palate of mouth and on tongue. States rash does not itch/burn but is having difficulty swallowing due to pain in mouth and had some bleeding on previous shift. MD was in to see patient at end of evening shift and so is aware of progressing rash/mouth lesions/tongue swelling. Patient medicated with magic mouthwash and then attempted to drink a sip of water and immediately started to cough. States she is having 4/10 pain across forehead but declined pain meds stating it is tolerable. Fall risk score is high and bed alarm is activated
[2018-09-09] MEDS: LIOTHYRONINE 25 MCG TABLET PO (05:51)
[2018-09-09] MEDS: PANTOPRAZOLE 40 MG TABLET PO (05:51)
[2018-09-09] MEDS: LEVOTHYROXINE 150 MCG TABLET PO (05:51)
[2018-09-09 05:58] LABS: Add Manual Diff / Slide Review NO; Basophils Absolute Auto 0 /uL (0-100); Basophils Percent Auto 0.5 % (0-2); Eosinophils Absolute Auto 0 /uL (0-450); Eosinophils Percent Auto 0.1 % (2-4); Hematocrit 30.3 % (36-46); Hemoglobin 9.9 g/dL (12.0-16.0); Lymphocytes Absolute Auto 200 /uL (1100-4500); Lymphocytes Percent Auto 6.3 % (25-40); Mean Corpuscular HGB Conc 32.7 % (30-36); Mean Corpuscular Hemoglobin 24.9 PG (26-34); Mean Corpuscular Volume 76.1 fL (80-100); Monocytes Absolute Auto 200 /uL (0-900); Monocytes Percent Auto 5.2 % (3-14); Neutrophils Absolute Auto 3000 /uL (1500-7000); Neutrophils Percent Auto 87.9 % (50-75); Platelet Count 138 X10^3/uL (150-400); Red Blood Cell Count 3.98 X10^6/uL (4.0-5.2); Red Cell Distribution Width 17.5 % (11.6-14.8); White Blood Cell Count 3.4 X10^3/uL (4.5-11.0)
[2018-09-09 06:03] LABS: BUN Creatinine Ratio 14.4 (6-22); Blood Urea Nitrogen 26 mg/dL (7-17); Calcium 7.6 mg/dL (8.4-10.2); Carbon Dioxide 15 mmol/L (22-32); Chloride 103 mmol/L (98-107); Estimated Glomerular Filt Rate 27.6 mL/min (>60); Glucose 279 mg/dL (80-110); HEMOLYSIS < 15 (0-50); Potassium 4.8 mmol/L (3.4-5.1); Sodium 129 mmol/L (137-145)
--- NOTE | 2018-09-09 07:21 | PM.PNPO.1 ---
Subjective Date Patient Seen: 09/09/18 Time Patient Seen: 07:22 Interval history: Hospital day 4 with patient admitted for abdominal pain and pneumonia. She was also noted to have a right thumb abscess secondary to splinter foreign body. She was seen by Dr. Ordoñez yesterday for ortho consult. Patient stated that her thumb was improving. She had been started on Levaquin initially for her pneumonia. She then developed a rash about unknown etiology. Levaquin was stopped and then patient started on ceftriaxone and azithromycin IV which was also stopped yesterday. Patient was started on acyclovir for possible viral rash. She states that her thumb is better today. Decreased pain and redness. Exam Vital Signs (past 8 hours): - 09/09/18 05:00 09/09/18 05:59 Temperature 97.4 F L Pulse Rate 77 Respiratory Rate 16 Blood Pressure 111/53 L Pulse Oximetry 99 99 Oxygen Delivery Method Nasal Cannula Oxygen Flow Rate 2 Narrative Exam Narrative: Right thumb. Thumb appears normal except for a approximately dime-sized raised fluctuant ecchymotic lesion to the volar aspect of distal thumb without tenderness on palpation. Good flexion extension of thumb. Good sensation and blanching to distal thumb. Objective Labs Result Diagrams: 09/09/18 05:28 09/09/18 05:28 Labs: Laboratory Results - last 24 hr 09/08/18 09/09/18 09/09/18 19:11 05:28 05:28 WBC 3.4 L RBC 3.98 L Hgb 9.9 L Hct 30.3 L MCV 76.1 L MCH 24.9 L MCHC 32.7 RDW 17.5 H Plt Count 138 L Neut % (Auto) 87.9 H Lymph % (Auto) 6.3 L [place] % (Auto) 5.2 Eos % (Auto) 0.1 L Baso % (Auto) 0.5 Neut # (Auto) 3000 Lymph # (Auto) 200 L [place] # (Auto) 200 Eos # (Auto) 0 Baso # (Auto) 0 ABG pH 7.34 L ABG pCO2 26.8 L ABG pO2 74 L ABG HCO3 15 L ABG Total CO2 15 L ABG O2 Saturation 94 L ABG Base Excess -11.0 L FiO2 24 Sodium 129 L Potassium 4.8 Chloride 103 Carbon Dioxide 15 L BUN 26 H Creatinine 1.80 H Estimated GFR 27.6 L BUN/Creatinine Ratio 14.4 Glucose 279 H D Calcium 7.6 L Assessment & Plan Post-op (1) Abscess of right thumb: Assessment and Plan narrative: Patient's right thumb appears to be improving according to the patient and my exam. She does have residual appearing hematoma type mass but do not see anything looks like an infection. Follow with hospitalist for further care. Quality VTE Deep Vein Thrombosis/Pulmonary Embolism Present on Admission: No
[2018-09-09] MEDS: AMLODIPINE 5 MG TABLET 10 MG PO (08:03)
[2018-09-09] MEDS: glipiZIDE 5 MG TABLET PO (08:03)
[2018-09-09] MEDS: PARoxetine 10 MG TABLET PO (08:03)
[2018-09-09] MEDS: SEVELAMER 800 MG 1600 EACH PO (08:04)
[2018-09-09] MEDS: METOPROLOL IR 25 MG TABLET 12.5 MG PO (08:04)
[2018-09-09] MEDS: HEPARIN 5,000 UNIT/ML VIAL 5000 UNIT SUBCUT ×2 (08:05→21:30)
--- NOTE | 2018-09-09 09:43 | PT.IPTN ---
Current Diagnoses Pneumonia, unspecified organism (09/07/18) Cutaneous abscess of right hand (09/07/18) Physical Therapy Treatment Note M2 PT-IP Current Condition Start: 09/07/18 15:50 Freq: NEEDED Status: Active Protocol: Document 09/07/18 14:10 RCC (Rec: 09/07/18 16:07 RCC [id number]) Physical Therapy Current Condition Current Condition Evaluation Date 09/07/18 Treatment Diagnosis LUQ/chest pain, pneumonia, impaired activity tolerance Precautions Other Precautions monitor MN/O2 M3 PT-IP Subjective Start: 09/07/18 15:50 Freq: NEEDED Status: Active Protocol: Document 09/09/18 09:42 LJ (Rec: 09/09/18 09:43 LJ [id number]) Subjective Physical Therapy Visit Type Type Patient Refusal Notes Pt in bed speaking with States she will get up later but is too tired at this time. M4 PT-IP Mobility and Gait Start: 09/07/18 15:50 Freq: NEEDED Status: Active Protocol: Document 09/08/18 10:15 CLB (Rec: 09/08/18 10:57 CLB [id number]) PT-Bed Mobility Assessment Sit to Supine Sit to Supine Minimal Assistance Head of Bed Elevated Bedrails PT-Transfer Assessment Sit to and From Stand Sit to and from Stand Minimal Assistance 1 Person Assistance Equipment Transfer Assistive Device Gait Belt Front Wheeled Walker Transfers Transfer Destination Bed Transfer Technique Stand Step Pivot Transfer Ability Level of Assist Contact Guard Assistance Comments Mobility Comments Pt required Min A sit-stand and sit-supine with cues for hand placement. Gait Assessment Gait Gait Assistance Required: Contact Guard Assist Distance (Feet) 10 Assistive Devices Assistive Device Gait Belt Front Wheeled Walker Gait Deviations General Gait Pattern Decreased Stride Length Decreased Feet Clearance Flexed Trunk Step-to Gait Factors Limiting Gait Function Factors Limiting Gait Function Decreased Activity Tolerance Decreased Strength Pain Poor Balance Comments Gait Comments Pt ambulated ~10ft from chair to left side of bed. Pt O2 on RA 92 before ambulating as pt sat in chair, O2 on RA after ambulating and getting into bed 84% then increased to 91% after 45 seconds of PLB. Stair Climbing Assessment Comments Stair Climbing Comments unable at this time. M5 PT-IP Objective Assessments Start: 09/07/18 15:50 Freq: NEEDED Status: Active Protocol: Document 09/07/18 14:10 RCC (Rec: 09/07/18 16:07 RCC [id number]) Orientation Orientation/Cognition Level of Alertness Alert Strength Lower Extremity Strength Assessment Bilaterally Impaired Hip flexion 3+/5 B Knee flexion 3/5 R and 3+/5 L; extension 3+/5 B Ankle DF 4/5 B M6 PT-IP Treatment Start: 09/07/18 15:50 Freq: NEEDED Status: Active Protocol: Document 09/07/18 14:10 RCC (Rec: 09/07/18 16:07 RCC [id number]) Physical Therapy Treatment Education Education Provided Safety M7 PT-IP Assessment and Plan Start: 09/07/18 15:50 Freq: NEEDED Status: Active Protocol: Document 09/08/18 10:15 CLB (Rec: 09/08/18 10:57 CLB [id number]) PT Summary Assessment and Plan Summary Impairments Strength Balance Bed Mobility Transfers Gait Activity Tolerance Assessment Summary Pt continues to fatigue with short gait due to decreased activity tolerance. Pt ambulated ~10ft on RA with decrease in O2 to 84% with recovery to 91% within 45 seconds of PLB. Pt may require SNF rehab before d/c home depending on progress during hospital stay. Pt has 14 stairs to navigate once home and pt in unable to tolerate stair climbing at this time. Goals Bed Mobility Goal Standby Assistance Transfer Goal Standby Assistance Gait Distance 50 Other Goals up/down 14 steps with CGA and unilat rail STG: gait x35 ft with FWW and SBA in 2 days bed mobility CGA in 2 days Days to Meet Goals 5 Frequency of Treatment Frequency Of Treatment Twice a Day Treatment Plan Physical Therapy Treatment Plan Bed Mobility Training Transfer Training Gait Training Therapeutic Exercise Balance Retraining Discharge Planning Neuromuscular Re-ed Other Recommendations and Next Treatment progress gait (monitor MN and Focus O2), bed mobility and STS; stairs prior to d/c. Recommendations To Nursing Amount of Assist Needed 1 Person Assist Discharge Recommendations PT Discharge Recommendations SNF Rehab Other Discharge Recommendations SNF vs. home with 24/ assist and HH
[2018-09-09] MEDS: HYDRALAZINE 25 MG TABLET 100 MG PO ×2 (10:07→15:05)
--- NOTE | 2018-09-09 11:06 | PM.PN.1 ---
Subjective Date Patient Seen: 09/09/18 Interval history: Patient 73-year-old female admitted for left pleuritic site pain, hypoxemia, negative CTA for PE, question of left base pneumonia with small bilateral pleural effusions, question of right thumb abscess, severe iron deficiency anemia, and on hospital stay day 2 she developed erythematous rash on head, neck and oral mucosa concerning for drug reaction or Zaman Rivera syndrome. Patient reports complete resolution of left pleuritic pain and denies cough or shortness of breath. She reports pain with swallowing related to the oral lesions. 1. Possible bacteria pneumonia, left lower lobe consolidation, with acute hypoxic respiratory failure. Resolved or resolving. -the etiology of her occult hypoxia narrowed down to left basilar pneumonia plus anemia. Both are treated. CTA negative for PE. -on admission patient was saturating 85% on room air, ABG significant for PaO2 of 50 -hemoglobin 8.0, hematocrit 23, now back up to 10.2.. -CTA PE and CT abdomen pelvis revealed left-sided consolidation versus atelectasis with bilateral small pleural effusions and pulmonary artery hypertension, but chest x-ray is read more definitively as left basilar pneumonia. -patient is currently on room air with O2 sat 96% and pleuritic pain has resolved -echo report is 60-65% ejection fraction with no valvular disease and only a trivial pericardial effusion. -patient should have follow-up outpatient chest x-ray in about a month to assess resolution of left lower lung density, noting she has history of renal cell carcinoma treated with cryotherapy -antibiotics discontinued due to the rash 2. 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 Iron deficiency anemia, chronicity undetermined -hemoglobin 8.0 on admit with low iron transferrin saturation consistent with iron deficiency -received 2 units PRBC with hemoglobin up to 10.3 -CT scan showing distal esophageal thickening -patient already on PPI therapy and may benefit from outpatient endoscopy to further define etiology of the anemia 4. Right thumb hematoma versus abscess -stable, appreciate ortho consult with last note indicating most likely this is residual hematoma and not an abscess, and patient states has been present for 2 months since lifting a fence -right thumb x-ray 3419-for foreign body -continue monitoring with outpatient Ortho follow-up 5. Acute kidney injury on CKD, stage 3 -possible CT contrast related ATN versus pre renal -gradual rising BUN and creatinine, now 26 and 1.8, versus BUN 23, creatinine 1.5 on admit -has been hydrated adequately -recheck BNP in a.m. -continue sevelamer home regimen medication 6. Hypertension -blood pressure stable at this time -continue amlodipine, clonidine, metoprolol, hydralazine home regimen 7. 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 Hypothyroidism -due to thyroidectomy from previous thyroid tumor -continue levothyroxine and liothyronine home regimen -TSH is high at 6.47 and levothyroxine increased to 0.[address] findings of esophagitis -per CT, there is thickening of the distal esophagus region which could be possible esophagitis -will continue patient on pantoprazole 20 mg p.o. daily, on omeprazole as outpatient -consider outpatient EGD 10. Nodules/cysts found on CT -per CTA PE and CT abdomen and pelvis, there are small nodules on pericardial sac, as well as renal cysts in addition to the left base infiltrate -patient with history of renal cell carcinoma treated with cryotherapy -follow-up likely be needed to Urology and Oncology 11. Hyponatremia, stable - Repeat BMP tomorrow. Patient is DNR/DNI DVT prophylaxis with heparin subQ Exam Vital Signs (past 8 hours): - 09/09/18 05:00 09/09/18 05:59 09/09/18 08:32 Temperature 97.4 F L Pulse Rate 77 Respiratory Rate 16 Blood Pressure 111/53 L Pulse Oximetry 99 99 96 09/09/18 09:00 09/09/18 10:07 Temperature 97.5 F L Pulse Rate 73 66 Respiratory Rate 20 Blood Pressure 115/57 L 125/70 Pulse Oximetry 96 Oxygen Delivery Method Room Air Oxygen Flow Rate 0 Narrative Exam Narrative: GENERAL: Patient alert, in bed, in no acute distress HEENT: Conjunctiva pink, noninjected, without drainage from eyes CHEST: Clear to auscultation bilaterally. CARDIAC: Regular rate and rhythm. ABDOMEN: Nondistended, soft, nontender EXTREMITIES: no edema. NEUROLOGICAL: Not confused, no focal weakness SKIN: Extensive coalescent papule or nodular erythematous rash, nonvesicular, non pustular, involving the forehead, cheeks, neck, only few lesions on upper back; she has multiple oral mucosa lesions on tongue, buccal mucosa and soft palate Objective Labs Result Diagrams: 09/09/18 05:28 09/09/18 05:28 Labs: Laboratory Results - last 24 hr 09/08/18 09/09/18 09/09/18 19:11 05:28 05:28 WBC 3.4 L RBC 3.98 L Hgb 9.9 L Hct 30.3 L MCV 76.1 L MCH 24.9 L MCHC 32.7 RDW 17.5 H Plt Count 138 L Neut % (Auto) 87.9 H Lymph % (Auto) 6.3 L [place] % (Auto) 5.2 Eos % (Auto) 0.1 L Baso % (Auto) 0.5 Neut # (Auto) 3000 Lymph # (Auto) 200 L [place] # (Auto) 200 Eos # (Auto) 0 Baso # (Auto) 0 ABG pH 7.34 L ABG pCO2 26.8 L ABG pO2 74 L ABG HCO3 15 L ABG Total CO2 15 L ABG O2 Saturation 94 L ABG Base Excess -11.0 L FiO2 24 Sodium 129 L Potassium 4.8 Chloride 103 Carbon Dioxide 15 L BUN 26 H Creatinine 1.80 H Estimated GFR 27.6 L BUN/Creatinine Ratio 14.4 Glucose 279 H D Calcium 7.6 L Quality VTE Deep Vein Thrombosis/Pulmonary Embolism Present on Admission: No
[2018-09-09] MEDS: SEVELAMER 800 MG 800 EACH PO (12:43)
--- NOTE | 2018-09-09 12:49 | OT.IP.EVAL ---
Current Diagnoses Pneumonia, unspecified organism (09/07/18) Cutaneous abscess of right hand (09/07/18) Past Medical History (Last Updated 09/06/18 @ 16:00 by Bibi Hager RN) CKD (chronic kidney disease) (Acute) Hypertension (Acute) Hypothyroid (Acute) DM (diabetes mellitus) type II controlled with renal manifestation (Chronic) Diabetic neuropathy (Chronic) HLD (hyperlipidemia) (Chronic) Renal mass of unknown nature (Chronic) Surgical History (Last Updated 09/06/18 @ 14:50 by Elly Brunner MD) H/O thyroidectomy (Chronic) Occupational Therapy Inpatient Evaluation/Re-Eval M1 PT/OT-IP Prior Functional Status Start: 09/07/18 15:50 Freq: NEEDED Status: Active Protocol: Document 09/09/18 12:15 [facility] (Rec: 09/09/18 12:48 [facility] [id number]) Medical Review Prior Functional Status Medical History Reviewed Yes Mobility and Gait gait without a device at home Activities of Daily Living and IADL's indep. I/ADLs Social History Household Members spouse Living Arrangements House Number of Floors (Floors) Two Floors Number of Stairs To Enter/Railing? 7 SE B rails to enter/exit, 7 steps to get to main level with rail on L ascending Home Environment Standard Height Toilet Tub/Shower Home Equipment Front Wheel Walker Additional Social History Comment Pt with c/o LUQ/chest pain, found to be hypoxic in ER @ 85 -86% on RA. She was found to have probable L basilar pneumonia. Pt lives with spouse, Kuldip, in [place]. Kuldip can assist with needs at home. Pt not on home O2. Hgb 10.4 and Hct 30.9 after transfusion . M2 OT-IP Current Condition Start: 09/07/18 18:39 Freq: Status: Active Protocol: Document 09/09/18 12:15 [facility] (Rec: 09/09/18 12:48 [facility] [id number]) Occupational Therapy Current Condition Current Condition Evaluation Date 09/09/18 Treatment Diagnosis Left basilar PNA,anemia, weakness Diagnosis Onset Date 09/07/18 M3 OT- IP Subjective and Pain Start: 09/07/18 18:39 Freq: Status: Active Protocol: Document 09/09/18 12:15 [facility] (Rec: 09/09/18 12:37 [facility] [id number]) OT- Subjective Occupational Therapy Visit Type Type Treatment Note Visit Start Time 10:50 Visit Stop Time 11:42 Total Visit Minutes 52 Occupational Therapy Visit Comments Patient Comments Pt after encouragement from daughters agreeable to shower. OT Pain Assessment Pain When Pain Assessed At Rest Pain Present Pain Present Denied Pain M4 OT- IP ADL's Start: 09/07/18 18:39 Freq: Status: Active Protocol: Document 09/09/18 12:15 [facility] (Rec: 09/09/18 12:37 [facility] [id number]) OT [id number] Comments OT Self-Feeding Comments Pt states having a trouble with swallowing especailly while drinking water and for swallowing pills per pt. Requested to nursing that pt have PAPERHANGER APPRENTICE eval. OT ADL-Dressing General Eval Upper Body Dressing Ability Standby Assistance Lower Body Dressing Ability Moderate Assistance Areas Needing Assistance Underpants/Brief Socks Comments OT Dressing Comments Assist to rupinder brief over her feet and assist for socks. OT ADL-Toileting Comments OT Toileting Comments Recommended that pt get BSC for home as pt states bathroom 20 steps away and in addition does not sleep in the same room. OT ADL-Bathing Bathing Type Bathing Type Shower General Evaluation Bathing Ability Minimal Assistance Areas Needing Assistance Wash/Dry Back Devices Bathing Equipment Hand Held Shower Sprayer Shower Chair with Arms Comments OT Bathing Comments Pt needing assist for to wash/ dry back, vc to sit to wash her legs, vc to not forget to wash perineal areas. Pt would benefit from getting tub bench and assist from for showering needs. M5 OT- IP IADL's Start: 09/07/18 18:39 Freq: Status: Active Protocol: Document 09/09/18 12:15 [facility] (Rec: 09/09/18 12:48 [facility] [id number]) OT-Instrumental Activities of Daily Living Home Safety Awareness Home Safety Comments To ask pt in more details next session for IADl status prior . M6 OT- IP Functional Cognition Start: 09/07/18 18:39 Freq: Status: Active Protocol: Document 09/09/18 12:15 [facility] (Rec: 09/09/18 12:37 [facility] [id number]) Cognitive Factors Limiting Selfcare Function Cognitive Ability Level of Alertness Alert Patient Orientation Name Place Situation Attention Span Ability Capable of Focused Attention Capable of Sustained Attention Ability to Follow Commands Able to Follow One Step Commands Memory Description Short Term Impaired Safety Awareness Underestimates Need for Assistance Problem Solving Ability Unable to Identify Errors Needs Assist to Identify Solutions Executive Function Ability Unable to Make Plans Unable to Organize Plans Unable to Remember Details Cognitive Comments Cognitive Assessment Comments Pt at times slow to process and initiate tasks. Pt needing cues to doff brief before showering, cues to help process though showering task for completeness. OT- Vision and Hearing OT- Hearing Assessment OT- Hearing Assessment WFL M7 OT- IP Mobility and Balance Start: 09/07/18 18:39 Freq: Status: Active Protocol: Document 09/09/18 12:15 [facility] (Rec: 09/09/18 12:37 [facility] [id number]) OT-Transfer Assessment Sit to and From Stand Sit to and from Stand Minimal Assistance Moderate Assistance Transfers Transfer Ability Minimal Assistance Technique Transfer Destination Bed Chair Toilet Transfer Technique Stand Step Pivot Devices Transfer Assistive Devices Gait Belt Front Wheeled Walker Comments Mobility Comments Pt needing cues for process to stand, scoot forwards , push up from armrest and then stand to FWW. Pt needing from GERALD to MODA to stand. OT- Balance Assessment Sitting Balance and Reactions Static Sitting Balance Ability Normal Dynamic Sitting Balance Ability Good Standing Balance and Reactions Static Standing Balance Ability Fair M8 OT- IP Objective Assessments Start: 09/07/18 18:39 Freq: Status: Active Protocol: Document 09/09/18 12:15 [facility] (Rec: 09/09/18 12:48 [facility] [id number]) OT Gross Range of Motion Upper Extremity Range of Motion Assessment Within Functional Limits OT Strength Comments Strength Comments At least 3+/5 for ADL needs, to assess further tomorrow. OT- Coordination Assessment Comments Coordination Comments Pt able to use both hands to take off pads from heart monitor. OT Sensation Assessment Comments Summary Comments Right thumb abscess -dime size , pt has rash on face and neck , and back areas. M9 OT- IP Assessment and Plan Start: 09/07/18 18:39 Freq: Status: Active Protocol: Document 09/09/18 12:15 [facility] (Rec: 09/09/18 12:37 [facility] [id number]) OT Summary Assessment and Plan Potential Rehabilitation Potential Good Analytic Complexity at Evaluation Low Summary OT Impairments Strength Balance Functional Cognition Functional Mobility Grooming Dressing Toileting Bathing Toilet Transfers Shower Transfers Progress Towards Goals Slow Progress due to Medical Issues Slow Progress due to Activity Tolerance Slow Progress due to Cognition Assessment Summary Pt MOD complexity due to barriers of steps, decreased functional cognition, decreased activity tolerance , endurance, and functional mobility. Pt far from baseline of independent with all ADl ' s and functional mobility needs and therefore would benefit from skilled rehab. Pt not wanting to go to skilled rehab and prefers home with home health. However due to pt's decreased safety awareness at this timeand need for assist, pt would need 24/7 assist and works daily 4-5 hours. Goals Grooming Goal Independent Dressing Goal Standby Assistance Toileting Goal Standby Assistance Bathing Goal Standby Assistance Toilet Transfer Goal Standby Assistance Shower Transfer Goal Contact Guard Assistance Patient/Caregiver Education Goal Caregiver Independent Assisting Patient Days to Meet Goals 5 Frequency of Treatment Frequency Of Treatment Once a Day Treatment Plan OT Treatment Plan ADL Training Functional Cognition Training Functional Mobility Patient/Family Education Discharge Planning Recommend SNF versus home with 24/7 assist and home health.
--- NOTE | 2018-09-09 13:14 | PC.NURSE ---
Discussed several concerns with Dr. Degroot today, including request for bowel medications for possible constipation, chronic wounds to toes noted, and patient's concern about swallowing difficulties. Issues addressed with Dr. Degroot (see new orders). No orders received for specific wound care to toes, currently open to air and dry, continue to monitor. Dr. Degroot also recommends soft easy to swallow foods. call light within reach, continue to monitor.
[2018-09-09] MEDS: SODIUM CHLORIDE 0.9% 1,000 ML 60 ML IV (13:22)
[2018-09-09] MEDS: INSULIN ASPART 100 UNIT/ML INSULN PEN SUBCUT ×3 (13:23→21:31)
[2018-09-09] MEDS: DOCUSATE 100 MG CAPSULE 200 MG PO (13:25)
--- NOTE | 2018-09-09 14:58 | PC.NURSE ---
patient did not void yet this shift, attempted in bathroom but did not feel urge. Bladder scan shows approx 150cc. Patient encouraged to increase fluid intake and IV fluids infusing as ordered. Dr. Degroot notified. No new orders received. continue to monitor.
--- NOTE | 2018-09-09 16:32 | PT.IPTN ---
Current Diagnoses Pneumonia, unspecified organism (09/07/18) Cutaneous abscess of right hand (09/07/18) Physical Therapy Treatment Note M2 PT-IP Current Condition Start: 09/07/18 15:50 Freq: NEEDED Status: Active Protocol: Document 09/07/18 14:10 [facility] (Rec: 09/07/18 16:07 RCC [id number]) Physical Therapy Current Condition Current Condition Evaluation Date 09/07/18 Treatment Diagnosis LUQ/chest pain, pneumonia, impaired activity tolerance Precautions Other Precautions monitor SC/O2 M3 PT-IP Subjective Start: 09/07/18 15:50 Freq: NEEDED Status: Active Protocol: Document 09/09/18 15:50 LJ (Rec: 09/09/18 16:32 LJ [id number]) Subjective Physical Therapy Visit Type Type Treatment Note Visit Start Time 15:50 Visit Stop Time 16:08 Total Visit Minutes 18 Notes Pt in bed not wanting to get up. States she was just up walking around the room. M4 PT-IP Mobility and Gait Start: 09/07/18 15:50 Freq: NEEDED Status: Active Protocol: Document 09/09/18 15:50 LJ (Rec: 09/09/18 16:32 LJ [id number]) PT-Bed Mobility Assessment Scooting Scooting Up and Down in Bed Standby Assistance PT-Transfer Assessment Comments Mobility Comments Pt remained in bed for bed exercises Gait Assessment Comments Gait Comments Pt unwilling at this time. M5 PT-IP Objective Assessments Start: 09/07/18 15:50 Freq: NEEDED Status: Active Protocol: Document 09/07/18 14:10 RCC (Rec: 09/07/18 16:07 RCC [id number]) Orientation Orientation/Cognition Level of Alertness Alert Strength Lower Extremity Strength Assessment Bilaterally Impaired Hip flexion 3+/5 B Knee flexion 3/5 R and 3+/5 L; extension 3+/5 B Ankle DF 4/5 B M6 PT-IP Treatment Start: 09/07/18 15:50 Freq: NEEDED Status: Active Protocol: Document 09/09/18 15:50 LJ (Rec: 09/09/18 16:32 LJ [id number]) Physical Therapy Treatment Exercises Exercises Ankle Pumps Gluteal Sets Quad Sets Heel Slides Supine Hip Abduction Education Education Provided Safety M7 PT-IP Assessment and Plan Start: 09/07/18 15:50 Freq: NEEDED Status: Active Protocol: Document 09/09/18 15:50 [facility] (Rec: 09/09/18 16:32 LJ [id number]) PT Summary Assessment and Plan Potential Rehabilitation Potential Good Status of Condition at Evaluation Unstable Summary Impairments Strength Balance Bed Mobility Transfers Gait Activity Tolerance Assessment Summary Pt too fatigued to get out of bed but willing to participate in bed exercises. Goals Bed Mobility Goal Standby Assistance Transfer Goal Standby Assistance Gait Distance 50 Other Goals up/down 14 steps with CGA and unilat rail STG: gait x35 ft with FWW and SBA in 2 days bed mobility CGA in 2 days Days to Meet Goals 5 Frequency of Treatment Frequency Of Treatment Twice a Day Treatment Plan Physical Therapy Treatment Plan Bed Mobility Training Transfer Training Gait Training Therapeutic Exercise Balance Retraining Discharge Planning Neuromuscular Re-ed Other Recommendations and Next Treatment progress gait (monitor SC and Focus O2), bed mobility and STS; stairs prior to d/c. Recommendations To Nursing Amount of Assist Needed 1 Person Assist Discharge Recommendations PT Discharge Recommendations SNF Rehab Other Discharge Recommendations SNF vs. home with 29/01 assist and HH
[2018-09-10] VITALS (16 sets, daily range): BP systolic 139–157; BP diastolic 61–98; PULSE 80–95; RESP 12–40; TEMP 36.5–37.1; O2SAT 93–100; BMI 26.3
--- NOTE | 2018-09-10 | DI.RAD.S_ITS ---
PROCEDURE: XR CHEST 1V INDICATIONS: resp failure TECHNIQUE: One view of the chest was acquired. COMPARISON: [facility], CR, XR CHEST 1V, 09/06/2018, 9:15. FINDINGS: Surgical changes and devices: None. Lungs and pleura: Increased multifocal patchy air space opacities within the right mid and lower lungs. No pleural effusions or pneumothorax. Mediastinum: Mediastinal contours appear normal. Heart size is enlarged. Bones and chest wall: No suspicious bony lesions. Overlying soft tissues appear unremarkable. IMPRESSION: Increased bilateral pneumonia. Continued plain film surveillance is recommended to ensure resolution, and to exclude underlying or central malignancy. Dictated by: John Ferguson M.D. on 09/10/2018 at 9:58 Approved by: John Ferguson M.D. on 09/10/2018 at 9:59
[2018-09-10] MEDS: DEXAMETHASONE 10 MG/ML VIAL 8 MG IV (00:34)
[2018-09-10] MEDS: diphenhydrAMINE 50 MG/ML VIAL IV (00:34)
--- NOTE | 2018-09-10 01:06 | PC.NURSE ---
Addendum entered by Sherry Cabrera R.N. 09/10/18 06:30: Manuela ARRIOLA, here this morning and updated on patient status including desats with suctioning etc. and being placed on O2. Informed of rash being more widespread tonight compared to last night. Original Note: Addendum entered by Sherry Cabrera R.N. 09/10/18 05:57: Noted to be dropping down more frequently with the lowest seen at 73% so oxygen replaced at 2L/min per NC Original Note: Addendum entered by Sherry Cabrera R.N. 09/10/18 05:34: Has intermittently been heard making throat clearing sounds and suctioning self with Yankour but improved from what she was at start of shift. Sat up in chair for several hours as she stated that made it easier to manage secretions. Intermittently drops sats down to upper 80's when doing mouth care or suctioning but then rebounds quickly back to mid 90's. Was able to take morning meds with small amounts of applesauce but visibly has difficulty swallowing. Original Note: Patient is alert and oriented. Breath sounds coarse with inspiratory crackles at bilateral bases; RA sat 97%. Is having difficulty with clearing secretions; almost continuously clearing throat and attempting to suction self with Yankour. States she feels like she has something in her throat and she can't get it up. Manuela ARRIOLA, here to see patient and ordered doses of Benadryl and Decadron which have been given. Rash is more extensive tonight; still involves face, neck and mouth but now also has lesions in nares and both external ear canal. Rash still on back but darker red than last night. More lesions noted on upper chest and anterior thighs compared to last night. Has raised, dull red area on pad of right thumb unchanged from last night. Noted abrasions on left great and 3rd toes and right 2nd & 4th toes. Denies that the rash itches and denies pain. Did give her some magic mouthwash at start of shift but states it really does not help. Is able to move self in bed. Does need staff assistance and walker when out of bed due to generalized weakness. Fall risk score is high and bed alarm is activated. HRR and was SR w/BBB on most recent telemetry reading. So far is declining to wear CPAP. Currently not clearing throat or feeling need to suction as often and verbally indicates she is doing better with clearing of secretions since receiving Decadron + Benadryl.
[2018-09-10] MEDS: SODIUM CHLORIDE 0.9% 1,000 ML 60 ML IV (05:24)
[2018-09-10] MEDS: PANTOPRAZOLE 40 MG TABLET PO (05:24)
[2018-09-10] MEDS: LEVOTHYROXINE 150 MCG TABLET PO (05:24)
[2018-09-10] MEDS: LIOTHYRONINE 25 MCG TABLET PO (05:24)
[2018-09-10] MEDS: DOCUSATE 100 MG CAPSULE 200 MG PO (08:21)
[2018-09-10] MEDS: HYDRALAZINE 25 MG TABLET 100 MG PO (08:21)
[2018-09-10] MEDS: AMLODIPINE 5 MG TABLET 10 MG PO (08:22)
[2018-09-10] MEDS: PARoxetine 10 MG TABLET PO (08:22)
[2018-09-10] MEDS: glipiZIDE 5 MG TABLET PO (08:22)
[2018-09-10] MEDS: SEVELAMER 800 MG 1600 EACH PO (08:23)
[2018-09-10] MEDS: METOPROLOL IR 25 MG TABLET 12.5 MG PO (08:25)
[2018-09-10] MEDS: ACETAMINOPHEN 325 MG TABLET 650 MG PO (08:28)
[2018-09-10] MEDS: HEPARIN 5,000 UNIT/ML VIAL 5000 UNIT SUBCUT ×2 (08:29→21:24)
[2018-09-10] MEDS: INSULIN ASPART 100 UNIT/ML INSULN PEN SUBCUT ×3 (08:31→18:04)
[2018-09-10 08:34] LABS: Add Manual Diff / Slide Review NO; Basophils Absolute Auto 0 /uL (0-100); Basophils Percent Auto 0.1 % (0-2); Eosinophils Absolute Auto 0 /uL (0-450); Hematocrit 32.3 % (36-46); Hemoglobin 10.4 g/dL (12.0-16.0); Lymphocytes Absolute Auto 200 /uL (1100-4500); Lymphocytes Percent Auto 5.4 % (25-40); Mean Corpuscular HGB Conc 32.1 % (30-36); Mean Corpuscular Hemoglobin 24.4 PG (26-34); Mean Corpuscular Volume 75.9 fL (80-100); Monocytes Absolute Auto 300 /uL (0-900); Monocytes Percent Auto 6.6 % (3-14); Neutrophils Absolute Auto 3700 /uL (1500-7000); Neutrophils Percent Auto 87.9 % (50-75); Platelet Count 220 X10^3/uL (150-400); Red Blood Cell Count 4.26 X10^6/uL (4.0-5.2); Red Cell Distribution Width 17.9 % (11.6-14.8); White Blood Cell Count 4.2 X10^3/uL (4.5-11.0)
[2018-09-10 08:39] LABS: BUN Creatinine Ratio 20.7 (6-22); Blood Urea Nitrogen 31 mg/dL (7-17); Calcium 7.8 mg/dL (8.4-10.2); Carbon Dioxide 16 mmol/L (22-32); Chloride 108 mmol/L (98-107); Glucose 184 mg/dL (80-110); HEMOLYSIS < 15 (0-50); Potassium 4.2 mmol/L (3.4-5.1); Sodium 135 mmol/L (137-145)
--- NOTE | 2018-09-10 08:51 | P.PN_ITS ---
Subjective Date Patient Seen: 09/10/18 Time Patient Seen: 08:47 Interval history: Checking on her right thumb mass. Patient states her thumb is improved in regards to swelling and redness. Still has raised lesion to the pad of the thumb. No increased pain. Dr. Degroot did order a x-ray of her thumb and did not note any foreign body. Exam Vital Signs (past 8 hours): - 09/10/18 03:53 09/10/18 07:40 09/10/18 08:00 Temperature 97.9 F 97.7 F Pulse Rate 83 93 H Respiratory Rate 16 19 Blood Pressure 140/69 139/98 H Pulse Oximetry 98 98 96 Oxygen Delivery Method Nasal Cannula Oxygen Flow Rate 2 Narrative Exam Narrative: Right thumb. There is a dime-size raised fluctuant purpuric lesion to the volar distal pad of thumb the. No signs of infection or inflammation surrounding the lesion. Good blanching and sensation of thumb. Objective Labs Result Diagrams: 09/10/18 08:15 09/10/18 08:15 Labs: Laboratory Results - last 24 hr 09/06/18 09/10/18 09/10/18 09:50 08:15 08:15 WBC 4.2 L RBC 4.26 Hgb 10.4 L Hct 32.3 L MCV 75.9 L MCH 24.4 L MCHC 32.1 RDW 17.9 H Plt Count 220 Neut % (Auto) 87.9 H Lymph % (Auto) 5.4 L [place] % (Auto) 6.6 Eos % (Auto) 0.0 L Baso % (Auto) 0.1 Neut # (Auto) 3700 Lymph # (Auto) 200 L [place] # (Auto) 300 Eos # (Auto) 0 Baso # (Auto) 0 Smear Path Review Sodium 135 L Potassium 4.2 Chloride 108 H Carbon Dioxide 16 L BUN 31 H Creatinine 1.50 H Estimated GFR 34.0 L BUN/Creatinine Ratio 20.7 Glucose 184 H Calcium 7.8 L Assessment & Plan Assessment & Plan narrative: Plan: Thumb lesion appears stable. Do not note any signs of infection. Dr. Ordoñez recommends that if the thumb lesion remained stable that the patient should follow up at [facility] office with Dr. Ordoñez after discharge from hospital to further evaluate the lesion and possible I and D. he does not want to do any surgical procedure at this time because of the patient's unknown rash. Quality VTE Deep Vein Thrombosis/Pulmonary Embolism Present on Admission: No
[2018-09-10] MEDS: DEXAMETHASONE 10 MG/ML VIAL IV ×2 (09:36→21:24)
--- NOTE | 2018-09-10 10:40 | PC.NURSE ---
Assess- 0800- Pt is A&ox3. Given tylenol for complaints of 4/10 pain. Pt had her swallow eval and did not tolerated this well. She was coughing and choking with each bite of food given and then would suction herself. Pt complains of her throat burning and soar. She states that it does not feel as though her throat is closing. Pt transferred down to ICU as her sats dropped down to the 60s. She will be more closely monitored downstairs. Pt has a rash to her face that is red with lesions. They are in her mouth and ears, down to chest and abdomen. She states that area's do not hurt. Down in ICU now.
--- NOTE | 2018-09-10 11:24 | PC.NURSE ---
Addendum entered by Bronson Erazo R.N. 09/10/18 15:06: Pt requiring less O2 over the course of the afternoon. Using HHFNC, able to titrate to 45% fio2 with sats 100%. Breathing remains labored but does not worsen with activity (ie up to bsc) as it did during initial assessment. Pt reports some improvement with ease of breathing. Using yankeur to assist with oral secretions. Dr. Degroot in to update pt on status of transfer (no beds available). Clarified PO med orders. Dr. Degroot gave verbal order to hold PO medications. Original Note: Rec'd pt from acute care to room 103 at 0950. AAO x3 and making needs known with clear speech. Respirations are labored, tachyneic, and shallow with a rate in the 30s-40s at rest. On 8L NC with SPO2 97% at rest with HOB elevated to 50 degrees to promote lung expansion. Pt requested up to bsc to void. Desats to 93% noted with increasingly labored breathing. Pt was able to void 200 ML of clear/yellow urine and was then assisted back to bed and respositioned for comfort. Dr. Degroot notified of pt's work of breathing and orders received for RT to eval/tx and ABG urgent. Called to RT and notified of orders. RT places pt on HHFNC. Pt's at bedside updated on plan of care. Oriented to room/environment and educated to fall risk and current plan of care. Dr. Degroot rounded and spoke with . Pt code status is changed to limited code (no CPR) and will accept intubation. Dr. Degroot spoke with pt and about possiblity to transfer to tertiary care facility r/t complex medical needs.
[2018-09-10 12:02] LABS: HCO3 ABG 14 mmol/L (22-26); PCO2 ABG 16.8 mmHg (35-45); PO2 ABG 344 mmHg (80-100); pH ABG 7.53 (7.35-7.45)
[2018-09-10 12:03] LABS: Oxygen Saturation ABG 100 % (95-100); TCO2 ABG 15 mmol/L (21-31)
--- NOTE | 2018-09-10 12:03 | PT.IPTN ---
Current Diagnoses Pneumonia, unspecified organism (09/07/18) Cutaneous abscess of right hand (09/07/18) Physical Therapy Treatment Note M2 PT-IP Current Condition Start: 09/07/18 15:50 Freq: NEEDED Status: Active Protocol: Document 09/07/18 14:10 [facility] (Rec: 09/07/18 16:07 [facility] [id number]) Physical Therapy Current Condition Current Condition Evaluation Date 09/07/18 Treatment Diagnosis LUQ/chest pain, pneumonia, impaired activity tolerance Precautions Other Precautions monitor [place]/O2 M3 PT-IP Subjective Start: 09/07/18 15:50 Freq: NEEDED Status: Active Protocol: Document 09/10/18 12:03 AB (Rec: 09/10/18 12:03 AB [id number]) Subjective Physical Therapy Visit Type Notes pt got transferred to the ICU. per nurse, PT tx on hold at this time. will f/u
[2018-09-10 12:04] LABS: Fractionated Inspired Oxygen 100
[2018-09-10] MEDS: PIPERACILLIN-TAZO 2.25 GM/50 ML FROZ.PIGGY IV ×2 (12:25→18:03)
[2018-09-10] MEDS: DEXAMETHASONE 0.1% 1 DROPS EYE-BOTH ×3 (12:25→21:23)
--- NOTE | 2018-09-10 13:05 | OT.IP.TRT ---
Current Diagnoses Pneumonia, unspecified organism (09/07/18) Cutaneous abscess of right hand (09/07/18) Occupational Therapy Treatment Note M2 OT-IP Current Condition Start: 09/07/18 18:39 Freq: Status: Active Protocol: Document 09/09/18 12:15 [facility] (Rec: 09/09/18 12:48 [facility] [id number]) Occupational Therapy Current Condition Current Condition Evaluation Date 09/09/18 Treatment Diagnosis Pulmonary HTN, weakness Diagnosis Onset Date 09/07/18 M3 OT- IP Subjective and Pain Start: 09/07/18 18:39 Freq: Status: Active Protocol: Document 09/10/18 13:04 [facility] (Rec: 09/10/18 13:04 [facility] [id number]) OT- Subjective Occupational Therapy Visit Type Type Patient Unavailable Notes Pt got moved down to ICU and nursing states not appropriate to be seen by therapies today , therefore to check on pt tomorrow.
--- NOTE | 2018-09-10 13:29 | PT.IPTN ---
Current Diagnoses Pneumonia, unspecified organism (09/07/18) Cutaneous abscess of right hand (09/07/18) Physical Therapy Treatment Note Notes GROUNDSKEEPER suggested holding PT/OT for the remainder of the day, will attempt to re-eval tomorrow or as medically appropriate.
--- NOTE | 2018-09-10 13:53 | ST.IPIE ---
Care Team Visit Care Team Role Provider Type Olman Ordoñez MD Other Providers Physician Specialty: Orthopedic Surgery Address: [address] [place] [address], [id number] Email: [email or web address] Tracey MD Family Provider Non-Staff Primary Care Provider Specialty: BOX OFFICE MANAGER Address: [address] [place] [address], [address] [place] [address], [id number] Email: Pratima Garcia DO Emergency Provider Physician Specialty: Emergency Medicine Address: [address] [place] [address], [id number] Email: Elly Brunner MD Admit Provider Physician Attending Provider Specialty: Internal Medicine Address: [address] [place] [address], [id number] Email: Current Diagnoses Pneumonia, unspecified organism (09/07/18) Cutaneous abscess of right hand (09/07/18) Past Medical History (Last Updated 09/06/18 @ 16:00 by Bibi Hager RN) CKD (chronic kidney disease) (Acute Medical) Hypertension (Acute Medical) Hypothyroid (Acute Medical) DM (diabetes mellitus) type II controlled with renal manifestation (Chronic Medical) Diabetic neuropathy (Chronic Medical) feet- numbness and pain HLD (hyperlipidemia) (Chronic Medical) 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 Patient states the pain started roughly about 3 weeks ago and progressively has gotten worse . For the past 4 days the pain has been very severe, sharp, nonradiating, and initiated with deep breath, which has prevented patient from taking good breaths. Subjective Observations The pt was awake and alert, sitting up in bed receiving 2L O2 via nasal cannula. She had suction at hand, complained of constant throat clearing, difficulty swallowing and cough with oral intake. Evaluation Liquids Trialed Ice Chips [place] Solids Trialed Puree Administration Type Tea Spoon Oral Impairment Moderately Impaired Oral Phase Comments Oral Peripheral Exam: Thick secretions observed from palate to tongue and along cheek and gum lines, crusted secretions along lips and tongue blade. Able to clear most with moist oral swabbing and [id number] rinsing. Pt exhibited tremulous jaw and tongue at rest and with movement. Generally weak oral structures. Oral Phase: Appropriate bolus acceptance from spoon. Moderate effort required for bolus prep and a/p transport. Mashing type mastication of yogurt observed with occasional anterior leakage to lips, which the pt managed with lingual recovery, and poor bolus collection resulting in distribution of yogurt across the oral cavity. The pt attempted to swallow yogurt but remained with diffuse oral residue, which did not clear with tsp sip NTL and required suctioning. Pharyngeal Impairment Severely Impaired Pharyngeal Phase Comments The pt exhibited overt s/sx of aspiration with all trials with significant variation in O2 sats and requiring frequent suctioning. Ice chip resulted in coughing after delay of 2-3 seconds post swallow. Applesauce was not trialed d/t pt report it makes her cough. Pt demonstrated minimal ability to swallow yogurt, after which she exhibited throat clearing and coughing. She was not benefited by NTL to assist swallow/clearance of yogurt but instead exhibited effortful swallow with facial grimace and immediate cough requiring suctioning. O2 sats on 2L NC fluctuated from upper 70s to mid 90s when pt was at rest, dropping as low as 67% during swish-and- spit, suctioning and coughing. Trials were discontinued for pt safety and Nsg was alerted. MD arrived and boosted O2 levels and decision made to transfer pt to ICU for closer observation. Pt made NPO with strict oral care, including pt self- swabbing with moist oral sponge. Pt instructed to spit out water from sponge and not to swallow. Educated RE high risk of aspiration PNA. Pt verbalized understanding and agreement. Findings Dysphagia Type Moderate Oral and Severe Pharyngeal Dysphagia. Rehabilitation Potential Good Impressions The pt is not safe for oral intake at this time. Due to sudden onset of dysphagia symptoms, it is anticipated that the pt's swallow function will improve as her overall health stabilizes. Diet Recommendations Liquids Order NPO Diet Order NPO Medication Recommendations Not Recommended by Mouth Treatment Plan Appropriate for Therapy Yes Therapy Recommendations Ongoing assessment of swallow function and safety. Modified Barium Swallow Study may be warranted when pt is able to tolerate procedure while maintaining adequate oxygen saturation levels. Speech Pathology to follow pt through hospital course. Dysphagia Goals Pt may participate in MBSS for further evaluation of swallow function/status when stable and able to tolerate procedure to guide POC. Pt will demonstrate swallow ability to safely resume oral intake with least restrictive diet to meet nutrition and hydration needs. SPLUNK ARCHITECT Follow Up Daily
--- NOTE | 2018-09-10 17:41 | PM.PN.1 ---
Subjective Date Patient Seen: 09/10/18 Interval history: Patient 73-year-old female admitted for left pleuritic site pain, hypoxemia, negative CTA for PE, question of left base pneumonia with small bilateral pleural effusions, question of right thumb abscess versus hematoma, severe iron deficiency anemia, and on hospital stay day 2 she developed spreading erythematous rash on head, neck and oral mucosa concerning for drug reaction or other etiology. Also developed purpuric rash on extremities. Overnight patient had more difficulty with controlling secretions and ability to swallow. She was restarted on IV dexamethasone. This morning patient acutely dropped her oxygen saturation into the 60s, with respiratory rate in the 40s, while being assessed by speech therapist. Noted to cough and aspirate with swallowing. She was placed on 100% FiO2 and transferred to ICU. Chest x-ray shows increased infiltrate in bilateral lungs consistent with aspiration pneumonitis or pneumonia. ABG on 100% FiO2 showed pH 7.53, pCO2 16, PO2 344. Over several hours her respiratory status improved and stabilized to where we were able to titrate her FiO2 to 40% high-flow nasal cannula. Exam Vital Signs (past 8 hours): - 09/10/18 09:50 09/10/18 10:29 09/10/18 12:00 Temperature 97.7 F 98.8 F Pulse Rate 80 86 Respiratory Rate 40 H 33 H Blood Pressure 140/61 140/78 Pulse Oximetry 97 93 95 09/10/18 13:00 09/10/18 14:45 09/10/18 15:00 Temperature Pulse Rate 88 93 H 91 H Respiratory Rate 26 H 33 H 24 Blood Pressure 142/75 H 153/87 H 157/66 H Pulse Oximetry 94 99 99 09/10/18 16:04 09/10/18 16:42 Temperature Pulse Rate 90 95 H Respiratory Rate 25 H 12 Blood Pressure 157/66 H Pulse Oximetry 100 99 Fraction of Inspired Oxygen 45 Oxygen Delivery Method Heated High Flow Oxygen Flow Rate 50 Narrative Exam Narrative: GENERAL: Patient alert, in bed, weak voice, pooling secretions in mouth HEENT: Swelling and inflammation noted lower eyelids but bulbar conjunctiva are clear, sclera white CHEST: Mild bilateral wheeze, diminished breath sounds in lower lobes CARDIAC: Regular rate and rhythm. ABDOMEN: Nondistended, soft, nontender EXTREMITIES: no pretibial edema. On right thumb she has a semi firm mass which appears most as a hematoma, without any drainage or surrounding inflammation NEUROLOGICAL: Not confused, no focal weakness SKIN: Extensive coalescent raised erythematous rash, nonvesicular, non pustular, involving the forehead, cheeks, neck, and few lesions on upper back; she has multiple oral mucosa lesions or small ulcerations on tongue, buccal mucosa and soft palate; she has scattered multiple discrete palpable purpuric lesions on both arms and legs; no necrotic lesions, no sloughing other than oral mucosa ulcerations/lesions Objective Labs Result Diagrams: 09/10/18 08:15 09/10/18 08:15 Labs: Laboratory Results - last 24 hr 09/10/18 09/10/18 09/10/18 08:15 08:15 11:42 WBC 4.2 L RBC 4.26 Hgb 10.4 L Hct 32.3 L MCV 75.9 L MCH 24.4 L MCHC 32.1 RDW 17.9 H Plt Count 220 Neut % (Auto) 87.9 H Lymph % (Auto) 5.4 L [place] % (Auto) 6.6 Eos % (Auto) 0.0 L Baso % (Auto) 0.1 Neut # (Auto) 3700 Lymph # (Auto) 200 L [place] # (Auto) 300 Eos # (Auto) 0 Baso # (Auto) 0 ABG pH 7.53 H ABG pCO2 16.8 L* ABG pO2 344 H* ABG HCO3 14 L ABG Total CO2 15 L ABG O2 Saturation 100 ABG Base Excess -9.0 L FiO2 100 Sodium 135 L Potassium 4.2 Chloride 108 H Carbon Dioxide 16 L BUN 31 H Creatinine 1.50 H Estimated GFR 34.0 L BUN/Creatinine Ratio 20.7 Glucose 184 H Calcium 7.8 L Nasal Screen MRSA (PCR) 09/10/18 11:55 WBC RBC Hgb Hct MCV MCH MCHC RDW Plt Count Neut % (Auto) Lymph % (Auto) [place] % (Auto) Eos % (Auto) Baso % (Auto) Neut # (Auto) Lymph # (Auto) [place] # (Auto) Eos # (Auto) Baso # (Auto) ABG pH ABG pCO2 ABG pO2 ABG HCO3 ABG Total CO2 ABG O2 Saturation ABG Base Excess FiO2 Sodium Potassium Chloride Carbon Dioxide BUN Creatinine Estimated GFR BUN/Creatinine Ratio Glucose Calcium Nasal Screen MRSA (PCR) Negative for mrsa Assessment & Plan Assessment & Plan narrative: Patient is 73-year-old female admitted for left pleuritic site pain, hypoxemia, negative CTA for PE, question of left base pneumonia with small bilateral pleural effusions, question of right thumb abscess versus hematoma, severe iron deficiency anemia, and on hospital stay day 2 she developed spreading erythematous rash on head, neck and oral mucosa concerning for drug reaction or other etiology. Also developed purpuric rash on extremities. 1. Aspiration pneumonitis versus pneumonia after aspiration event in-hospital on 09/10/2018, with acute hypoxic respiratory failure. -patient initially admitted on 09/06/2018 with left flank pleuritic pain and hypoxia and thought to have possible left basilar pneumonia on CTA (negative for PE), started on Rocephin and Zithromax, developed rash the following day, antibiotics switched to Levaquin, then antibiotic discontinued on 09/09/2018 due to patient with complete symptom resolution, absence of cough for fever, and normal O2 sats -subsequently she aspirated during ST evaluation on morning of 09/10/2018, acutely dropped O2 sats, transfer to ICU, repeat chest x-ray shows new right lower lobe infiltrates and worsening left lower lobe infiltrate -respiratory status has improved and stabilized since ICU transfer, currently patient on 40% FiO2 high-flow nasal cannula with O2 sat mid 90s -for aspiration coverage she will continue on Zosyn 2.25 g IV q.6 hours (renal dose) started on 09/10/2018 -patient has been afebrile throughout with a leukopenia -keep strict NPO due to aspiration risk, maintenance IV fluids 2. Acute erythematous eruption, occurring on day 2 of hospitalization, subsequently developed palpable purpuric lesions on all extremities -Phone dermatology consultation with Dr. Live at [facility], does not think this is SJS, differential includes infectious causes such as Gram-negative bacteremia, mycobacterial, angio-invasive fungal, and non infectious causes such as vasculitis, leukemia cutis, metastatic renal cell carcinoma (patient with history of RCC) -raised erythematous confluent patches show involvement of scalp, face, neck, oral mucosa, few lesions on upper back; the discrete scattered palpable purpuric lesions involve the extremity -continue dexamethasone 10 mg IV q.12 hours, IV hydration, Magic mouthwash, dexamethasone ophthalmic solution 5x daily -per [facility] consult recommendations ordered ANCA, CHELSEA, ESR, complements, RF, HIV -blood cultures done a.m. 09/10/2018 pending -throat culture ordered 09/10/2018 -wound cultures no growth 3. Iron deficiency anemia, chronicity undetermined -hemoglobin 8.0 on admit with low iron transferrin saturation consistent with iron deficiency -received 2 units PRBC with hemoglobin up to 10.4 -CT scan showing distal esophageal thickening possible source of chronic blood loss -patient already on PPI therapy and may benefit from outpatient endoscopy to further define etiology of the anemia 4. Right thumb hematoma versus abscess -stable, appreciate ortho consult with last note indicating most likely this is residual hematoma and not an abscess, and patient states has been present for 2 months since lifting a fence -right thumb x-ray [id number]-for foreign body -continue monitoring with outpatient Ortho follow-up 5. Acute kidney injury on CKD, stage 3 -possible CT contrast related ATN versus pre renal -improving with creatinine down to 1.5 on 09/10/2018 which is same as at admission; max creatinine 1.8 on 09/09/2018 -she has developed a non anion gap acidosis with drifting bicarb down to 16 -recheck BNP in a.m. -holding sevelamer due to NPO status 6. Hypertension -blood pressure mildly elevated at this time -holding BP meds amlodipine, clonidine, metoprolol, hydralazine due to NPO status 7. Diabetes type 2 with steroid induced hyperglycemia -with complications of diabetic neuropathy and CKD -holding atorvastatin, gabapentin, glipizide home regimen due to NPO status -continue Accu-Cheks and NovoLog sliding scale 8. Hypothyroidism -due to thyroidectomy from previous thyroid tumor -continue levothyroxine and liothyronine home regimen -TSH is high at 6.47 and levothyroxine increased to 0.15 mg daily. 9. Nodules/cysts found on CT -per CTA PE and CT abdomen and pelvis, there are small nodules on pericardial sac, as well as renal cysts in addition to the left base infiltrate -patient with history of renal cell carcinoma treated with cryotherapy -follow-up likely be needed to Urology and Oncology Patient is limited code, no CPR, but okay to intubate. She would not oppose intubation and mechanical ventilation for short-term for treatable cause per bedside discussion on 09/10/2018. DVT prophylaxis with heparin subQ Quality VTE Deep Vein Thrombosis/Pulmonary Embolism Present on Admission: No
--- NOTE | 2018-09-10 18:11 | PC.NURSE ---
Addendum entered by Lachelle Harper R.N. 09/10/18 22:32: 2230 -RT reports titration FIO2 down to 30%. Pt resting quietly. 97%. Monitor. Original Note: Addendum entered by Lachelle Harper R.N. 09/10/18 21:38: 1930 - Pt daughter decided to leave for the evening after being informed that transfer will probably not take place until tomorrow afternoon, pending bed availability, per MD note. Phone number left on chart, requesting phone notification with any change in pt status. Pt using call light appropriately, however reviewed safety and call light use, Call light in reach, Bed alarm on. 1900 - Review lab testing orders with pt and her daughter per Dr. Degroot's request. Pt calm and cooperative. Both verbalize understanding. Asking appropriate questions and request update on pending transfer. Original Note: 1800 - Pt reports decreased work of breathing. Resting quietly. 99% on FIO2 45%, Using oral suction independently. Supportive daughter at bedside. Pt verbalize understanding r/t NPO, and possibility of transfer. Denies need at this time.
[2018-09-10 19:23] LABS: Rheumatoid Factor 32.1 IU/mL (<12.0)
[2018-09-10 19:25] LABS: Erythrocyte Sedimentation Rate 45 MM/HR (0-20)
[2018-09-10 20:41] LABS: HIV 1 and 2 Antibody NEGATIVE (NEGATIVE)
[2018-09-10] MEDS: SODIUM CHLORIDE 0.9% 1,000 ML 100 ML IV (23:37)
[2018-09-11] VITALS: BP 144/72; PULSE 102; RESP 12; TEMP 36.6; O2SAT 98
[2018-09-11] MEDS: PIPERACILLIN-TAZO 2.25 GM/50 ML FROZ.PIGGY IV ×2 (00:22→06:06)
[2018-09-11 00:30] VITALS: O2SAT 97
[2018-09-11] MEDS: LIDOCAINE VISCOUS 2% 30 ML, MAG HYDROX/ALUMINUM/SIMETH SUS 30 ML, NYSTATIN SUSP 3,000,0... MM (03:35)
[2018-09-11 03:50] VITALS: BP 141/75; PULSE 100; RESP 14; TEMP 36.4; O2SAT 99
[2018-09-11 05:21] LABS: Free T4, Direct Thyroxine 1.29 ng/dL (0.78-2.19)
[2018-09-11] MEDS: INSULIN ASPART 100 UNIT/ML INSULN PEN SUBCUT (06:06)
--- NOTE | 2018-09-11 06:35 | PC.NURSE ---
Patient slept most of the night, HHFNC in place, FIO2 30%, SpO2 >94%, denies dyspnea. SR/ST, BBB with bigeminal and trigeminal PVCs, tachy to 120s when up to BSC. NPO, oral care and Magic mouthwash given. Rash and lesions still present, some scabs are starting to open and drain sanguinous fluid, more purpura is noted throughout.
[2018-09-11 07:00] VITALS: BP 146/64; PULSE 101; RESP 15; TEMP 37.1; O2SAT 98
[2018-09-11 07:30] VITALS: O2SAT 98
--- NOTE | 2018-09-11 09:12 | PM.PN.1 ---
Subjective Date Patient Seen: 09/11/18 Time Patient Seen: 09:12 Interval history: Hospital day 5. Patient being seen for her right thumb mass. Patient does not think this has changed since yesterday. No increased pain or swelling. She continues have her ongoing generalized rash of unknown etiology. There has been discussion about possible transfer to [facility] for further evaluation and treatment. Exam Vital Signs (past 8 hours): - 09/11/18 03:50 09/11/18 07:00 09/11/18 07:30 Temperature 97.6 F 98.7 F Pulse Rate 100 H 101 H Respiratory Rate 14 15 Blood Pressure 141/75 H 146/64 H Pulse Oximetry 99 98 98 Fraction of Inspired Oxygen 30 Oxygen Delivery Method High Flow Nasal Cannula Oxygen Flow Rate 35 Narrative Exam Narrative: Right thumb. Raised fluctuant purpuric mass to the volar pad of thumb measures 2.0 x 1.8 cm. No surrounding erythema. There is a new approximately 2 mm brownish spot just distal to the mass. No significant swelling noted to the thumb. Objective Labs Result Diagrams: 09/10/18 08:15 09/10/18 08:15 Labs: Laboratory Results - last 24 hr 09/10/18 09/10/18 09/10/18 11:42 11:55 19:00 ESR 45 H ABG pH 7.53 H ABG pCO2 16.8 L* ABG pO2 344 H* ABG HCO3 14 L ABG Total CO2 15 L ABG O2 Saturation 100 ABG Base Excess -9.0 L FiO2 100 Free T4 Nasal Screen MRSA (PCR) Negative for mrsa Rheumatoid Factor HIV 1&2 Antibody 09/10/18 09/10/18 09/11/18 19:00 19:00 04:35 ESR ABG pH ABG pCO2 ABG pO2 ABG HCO3 ABG Total CO2 ABG O2 Saturation ABG Base Excess FiO2 Free T4 1.29 Nasal Screen MRSA (PCR) Rheumatoid Factor 32.1 H HIV 1&2 Antibody Negative Assessment & Plan Assessment & Plan narrative: Plan: Thumb mass appears relatively stable. Does not appear to be infectious. Dr. Ordoñez had planned on seeing the patient as an outpatient for possible I and D if needed. Because of patient's other body rash he did not want to have patient go to the OR. Patient may be transferred to [facility] for further treatment. I did talk with Dr. Rodriguez regarding this patient and will sign off for Orthopedics unless something changes with her thumb. Quality VTE Deep Vein Thrombosis/Pulmonary Embolism Present on Admission: No
--- NOTE | 2018-09-11 09:18 | P.PN_ITS ---
Subjective Date Patient Seen: 09/11/18 Time Patient Seen: 09:12 Interval history: Hospital day 5. Patient being seen for her right thumb mass. Patient does not think this has changed since yesterday. No increased pain or swelling. She continues have her ongoing generalized rash of unknown etiology. There has been discussion about possible transfer to [facility] for further evaluation and treatment. Exam Vital Signs (past 8 hours): - 09/11/18 03:50 09/11/18 07:00 09/11/18 07:30 Temperature 97.6 F 98.7 F Pulse Rate 100 H 101 H Respiratory Rate 14 15 Blood Pressure 141/75 H 146/64 H Pulse Oximetry 99 98 98 Fraction of Inspired Oxygen 30 Oxygen Delivery Method High Flow Nasal Cannula Oxygen Flow Rate 35 Narrative Exam Narrative: Right thumb. Raised fluctuant purpuric mass to the volar pad of thumb measures 2.0 x 1.8 cm. No surrounding erythema. There is a new approximately 2 mm brownish spot just distal to the mass. No significant swelling noted to the thumb. Objective Labs Result Diagrams: 09/10/18 08:15 09/10/18 08:15 Labs: Laboratory Results - last 24 hr 09/10/18 09/10/18 09/10/18 11:42 11:55 19:00 ESR 45 H ABG pH 7.53 H ABG pCO2 16.8 L* ABG pO2 344 H* ABG HCO3 14 L ABG Total CO2 15 L ABG O2 Saturation 100 ABG Base Excess -9.0 L FiO2 100 Free T4 Nasal Screen MRSA (PCR) Negative for mrsa Rheumatoid Factor HIV 1&2 Antibody 09/10/18 09/10/18 09/11/18 19:00 19:00 04:35 ESR ABG pH ABG pCO2 ABG pO2 ABG HCO3 ABG Total CO2 ABG O2 Saturation ABG Base Excess FiO2 Free T4 1.29 Nasal Screen MRSA (PCR) Rheumatoid Factor 32.1 H HIV 1&2 Antibody Negative Assessment & Plan Assessment & Plan narrative: Plan: Thumb mass appears relatively stable. Does not appear to be infectious. Dr. Ordoñez had planned on seeing the patient as an outpatient for possible I and D if needed. Because of patient's other body rash he did not want to have patient go to the OR. Patient may be transferred to [facility] for further treatment. I did talk with Dr. Rodriguez regarding this patient and will sign off for Orthopedics unless something changes with her thumb. Quality VTE Deep Vein Thrombosis/Pulmonary Embolism Present on Admission: No
--- NOTE | 2018-09-11 09:29 | OT.IP.TRT ---
Current Diagnoses Pneumonia, unspecified organism (09/07/18) Cutaneous abscess of right hand (09/07/18) Occupational Therapy Treatment Note M3 OT- IP Subjective and Pain Start: 09/07/18 18:39 Freq: Status: Active Protocol: Document 09/11/18 09:29 PJM (Rec: 09/11/18 15:44 [facility] [id number]) OT- Subjective Occupational Therapy Visit Type Type Treatment Note Visit Start Time 09:05 Visit Stop Time 09:29 Total Visit Minutes 24 Notes Pt awake and alert in bedside recliner. Agreeable to tx. Pt currently on 30% heated high flow O2 with O2 sats in low 90 's, HR in 80's throughout session. RN okayed tx. Occupational Therapy Visit Comments Patient Comments I slept pretty well last night. Patient/Caregiver Goals to figure out what is going on with her skin and go home OT Pain Assessment Pain When Pain Assessed After Treatment Pain Present Pain Present Denied Pain M4 OT- IP ADL's Start: 09/07/18 18:39 Freq: Status: Active Protocol: Document 09/11/18 09:29 PJM (Rec: 09/11/18 15:44 [facility] [id number]) OT [id number] General Evaluation Diet Level for Self-Feeding NPO OT ADL-Grooming General Evaluation Grooming Ability Standby Assistance Areas Needing Assistance Combing/Brushing Hair Comments OT Grooming Comments seated in chair, face washing deferred due to high flow O2 and facial skin lesions OT ADL-Oral Care General Eval Oral Care Ability Standby Assistance Areas of Assistance Retrieving/Set-Up of Items Devices Oral Care Devices Sponge/Foam Tipped Swab Comments Oral Care Comments pt provided with swab, ice water (squeezed out of swab due to NPO status) and mouth moisturizer. Good thoroughness noted. M6 OT- IP Functional Cognition Start: 09/07/18 18:39 Freq: Status: Active Protocol: Document 09/11/18 09:29 PJM (Rec: 09/11/18 15:44 [facility] [id number]) Cognitive Factors Limiting Selfcare Function Cognitive Ability Level of Alertness Alert Patient Orientation Name Month Date Year Place Situation Attention Span Ability Capable of Focused Attention Capable of Sustained Attention Ability to Follow Commands Able to Follow One Step Commands Cognitive Comments Cognitive Assessment Comments Pt alert and oriented with normal speed of processing. Pt motivated to increase activity level and understands she will be transferred to another hospital today for higher level of care. M8 OT- IP Objective Assessments Start: 09/07/18 18:39 Freq: Status: Active Protocol: Document 09/11/18 09:29 PJM (Rec: 09/11/18 15:44 [facility] [id number]) OT Gross Range of Motion Upper Extremity Range of Motion Assessment Within Functional Limits ROM Impairments Pt completed 10 reps of 3 BUE AROm exercises for shoulders and elbows OT Strength Upper Extremity Strength Assessment Within Functional Limits Hand Reel Winder Strength Hand Dominance Right OT- Coordination Assessment Comments Coordination Comments BUE WFL for small container management this session, but note large blister like lesion on distal volar pad of thumb which interferes with prehension. OT-Muscle Tone Assessment Muscle Tone WNL Yes OT Sensation Assessment Comments Summary Comments Pt denies deficits. M9 OT- IP Assessment and Plan Start: 09/07/18 18:39 Freq: Status: Active Protocol: Document 09/11/18 09:29 PJM (Rec: 09/11/18 15:44 [facility] [id number]) OT Summary Assessment and Plan Potential Rehabilitation Potential Good Summary OT Impairments Functional Mobility Self-Feeding Grooming Dressing Toileting Bathing Toilet Transfers Shower Transfers Progress Towards Goals Progressing Toward Goals Assessment Summary Pt more alert today and very motivated to participate in BUE ex and seated grooming tasks. Mobility limited by need for 30% high flow O2 this session , so pt seen in chair. Anticipate pt will improve steadily once medical status improves. Pt to be transferred to [facility] for higher level of care later today. Recommend continue OT services there to address self care skills, activity tolerance and functional mobility. Frequency of Treatment Frequency Of Treatment Discharge
[2018-09-11] MEDS: HEPARIN 5,000 UNIT/ML VIAL 5000 UNIT SUBCUT (09:42)
[2018-09-11] MEDS: DEXAMETHASONE 0.1% 1 DROPS EYE-BOTH (09:42)
[2018-09-11] MEDS: SODIUM CHLORIDE 0.9% FLUSH 10 ML IV (09:42)
[2018-09-11] MEDS: DEXAMETHASONE 10 MG/ML VIAL IV (09:42)
[2018-09-11 10:11] LABS: Alanine Aminotransferase 30 IU/L (9-52); Albumin 2.8 g/dL (3.5-5.0); Albumin Globulin Ratio 0.8 (1.0-2.8); Alkaline Phosphatase 53 U/L (38-126); Aspartate Aminotransferase 87 IU/L (14-36); BUN Creatinine Ratio 22.1 (6-22); Bilirubin Total 0.5 mg/dL (0.2-1.3); Blood Urea Nitrogen 31 mg/dL (7-17); Calcium 7.6 mg/dL (8.4-10.2); Carbon Dioxide 15 mmol/L (22-32); Chloride 112 mmol/L (98-107); Estimated Glomerular Filt Rate 36.9 mL/min (>60); Globulin 3.4 g/dL (1.7-4.1); Glucose 173 mg/dL (80-110); HEMOLYSIS 21 (0-50); Potassium 4.2 mmol/L (3.4-5.1); Sodium 138 mmol/L (137-145); Total Protein 6.2 g/dL (6.3-8.2)
[2018-09-11 10:16] LABS: Add Manual Diff / Slide Review YES; Hematocrit 30.8 % (36-46); Hemoglobin 9.8 g/dL (12.0-16.0); Mean Corpuscular HGB Conc 31.9 % (30-36); Mean Corpuscular Hemoglobin 24.4 PG (26-34); Mean Corpuscular Volume 76.6 fL (80-100); Platelet Count 206 X10^3/uL (150-400); Red Blood Cell Count 4.03 X10^6/uL (4.0-5.2); Red Cell Distribution Width 18.3 % (11.6-14.8)
[2018-09-11 10:39] LABS: Neutrophils Absolute Manual 2280 /uL (3000-5900); Total Cells Counted 100
[2018-09-11 10:40] LABS: Anisocytosis 1+; Burr Cells 2+; Hypochromasia 1+; Poikilocytosis 1+
[2018-09-11 11:00] VITALS: BP 144/75; PULSE 93; RESP 21; TEMP 36.9; O2SAT 100
--- NOTE | 2018-09-11 11:49 | PM.DS.1 ---
History of Present Illness Date Patient Seen: 09/07/18 Chief complaint: LLQ Abdominal Pain Narrative: Written Dr. Brunner: 73-year-old female with past medical history of hypertension, hyperlipidemia, diabetes type 2, thyroid tumor status post resection and secondary hypothyroidism, diabetic neuropathy, CKD, renal cancer status post cryo resection presented to emergency department with left upper quadrant pain. Patient states the pain started roughly about 3 weeks ago and progressively has gotten worse. For the past 4 days the pain has been very severe, sharp, nonradiating, and initiated with deep breath, which has prevented patient from taking good breaths. Because the frequency increased to every few hours over the last 4 days, patient has came to emergency department for further evaluation. She denies any fevers or chills, denies any nausea or vomiting, denies any diarrhea or constipation, denies any cough denies any loss of consciousness. Denies any blurry vision, lightheadedness or dizziness. Denies any chest pain or palpitations. Patient does state that she has had loss of appetite. She has lost 30 lb in the last 7 months. Patient denies any symptoms. She denies trauma to the left side of her chest and abdomen. In the emergency department, patient's vitals revealed temperature 99.5? F, pulse 86, respiratory rate 26, blood pressure 138/59, and saturation 86% on room air. Her saturation improved to 94% on 2 L oxygen. Lab work revealed WBC 3.1, hemoglobin 8.0, hematocrit 23.9, platelets 212. Sodium was 128, potassium 4.3, chloride 100, bicarb 18, BUN 23, and creatinine 1.5. BNP was less than 100. Troponin was negative at 0.012. LFTs were normal with exception of albumin at 3.0. Lipase was 52. UA showed no nitrites or leukocyte esterase. ABG showed pH 7.33, CO2 32, PO2 50. Chest x-ray was performed which revealed cardiomegaly with left basilar consolidation, likely atelectasis. CTA PE performed which revealed no pulmonary embolism, however there was enlarged pulmonary artery consistent with pulmonary artery hypertension, subcentimeter nodules within pericardial sac, possible esophagitis, and minimal effusion at the bases of the lungs bilaterally. At that point CT of the abdomen and pelvis was performed which revealed no acute intra-abdominal findings, but increased size of left ovary with multiple cysts, mild diverticulosis, bilateral renal cysts and right angiomyolipoma, cholelithiasis, and left basilar consolidation and small bilateral pleural effusion. Patient was admitted to general floor for further workup of hypoxia/hypoxemia, and left sided pain. Discharge Providers Date of admission: 09/07/18 11:15 Discharge Date: 09/11/18 Primary care physician: Jerome Tracey MD Consults: 09/06/18 15:55 Consult to Dietitian, Adult Routine Comment: Reason For Exam: reports 30+lb weight loss/severe decrease in alma Consult to Installation & Maintenance Executive Routine Comment: 09/07/18 10:58 Consult to Occupational Therapy Evaluate & Treat Comment: Physician Instructions: Evaluate and treat Consult to Physical Therapy Evaluate & Treat Comment: Physician Instructions: Evaluate and Treat 09/07/18 18:04 Consult to Orthopedic Surgery Routine Comment: Consulting Provider: Olman Ordoñez Reason for consultation: Thumb abscess Has provider been notified: Yes 09/10/18 07:48 Consult to Speech Therapy Evaluate & Treat Comment: Physician Instructions: Evaluate and treat 09/10/18 08:19 Consult to Speech Therapy Evaluate & Treat Comment: Physician Instructions: Evaluate and treat 09/10/18 10:46 Consult to Respiratory Therapy Evaluate & Treat Comment: increasing O2 needs Physician Instructions: Evaluate and treat Discharge provider: Azucena Rodriguez DO Summary Discharge Diagnosis: Patient is 73-year-old female admitted for left pleuritic site pain, hypoxemia, negative CTA for PE, question of left base pneumonia with small bilateral pleural effusions, question of right thumb abscess versus hematoma, severe iron deficiency anemia, and on hospital stay day 2 she developed spreading erythematous rash on head, neck and oral mucosa concerning for drug reaction or other etiology. Also developed purpuric rash on extremities. 1. Aspiration pneumonitis versus pneumonia after aspiration event in-hospital on 09/10/2018, with acute hypoxic respiratory failure. -patient initially admitted on 09/06/2018 with left flank pleuritic pain and hypoxia and thought to have possible left basilar pneumonia on CTA (negative for PE), started on Rocephin and Zithromax, developed rash the following day, antibiotics switched to Levaquin, then antibiotic discontinued on 09/09/2018 due to patient with complete symptom resolution, absence of cough for fever, and normal O2 sats -subsequently she aspirated during ST evaluation on morning of 09/10/2018, acutely dropped O2 sats, transfer to ICU, repeat chest x-ray shows new right lower lobe infiltrates and worsening left lower lobe infiltrate -respiratory status has improved and stabilized since ICU transfer, currently patient on 40% FiO2 high-flow nasal cannula with O2 sat mid 90s -for aspiration coverage she will continue on Zosyn 2.25 g IV q.6 hours (renal dose) started on 09/10/2018 -patient has been afebrile throughout with a leukopenia -keep strict NPO due to aspiration risk, maintenance IV fluids 2. Acute erythematous eruption, occurring on day 2 of hospitalization, subsequently developed palpable purpuric lesions on all extremities -Phone dermatology consultation with Dr. Live at [facility], does not think this is SJS, differential includes infectious causes such as Gram-negative bacteremia, mycobacterial, angio-invasive fungal, and non infectious causes such as vasculitis, leukemia cutis, metastatic renal cell carcinoma (patient with history of RCC) -raised erythematous confluent patches show involvement of scalp, face, neck, oral mucosa, few lesions on upper back; the discrete scattered palpable purpuric lesions involve the extremity -continue dexamethasone 10 mg IV q.12 hours, IV hydration, Magic mouthwash, dexamethasone ophthalmic solution 5x daily -per [facility] consult recommendations ordered ANCA, CHELSEA, ESR, complements, RF, HIV -blood cultures done a.m. 09/10/2018 pending -throat culture ordered 09/10/2018 -wound cultures no growth 3. Iron deficiency anemia, chronicity undetermined -hemoglobin 8.0 on admit with low iron transferrin saturation consistent with iron deficiency -received 2 units PRBC with hemoglobin up to 10.4 -CT scan showing distal esophageal thickening possible source of chronic blood loss -patient already on PPI therapy and may benefit from outpatient endoscopy to further define etiology of the anemia 4. Right thumb hematoma versus abscess -stable, appreciate ortho consult with last note indicating most likely this is residual hematoma and not an abscess, and patient states has been present for 2 months since lifting a fence -right thumb x-ray 3419-for foreign body -continue monitoring with outpatient Ortho follow-up 5. Acute kidney injury on CKD, stage 3 -possible CT contrast related ATN versus pre renal -improving with creatinine down to 1.5 on 09/10/2018 which is same as at admission; max creatinine 1.8 on 09/09/2018 -she has developed a non anion gap acidosis with drifting bicarb down to 16 -recheck BNP in a.m. -holding sevelamer due to NPO status 6. Hypertension -blood pressure mildly elevated at this time -holding BP meds amlodipine, clonidine, metoprolol, hydralazine due to NPO status 7. Diabetes type 2 with steroid induced hyperglycemia -with complications of diabetic neuropathy and CKD -holding atorvastatin, gabapentin, glipizide home regimen due to NPO status -continue Accu-Cheks and NovoLog sliding scale 8. Hypothyroidism -due to thyroidectomy from previous thyroid tumor -continue levothyroxine and liothyronine home regimen -TSH is high at 6.47 and levothyroxine increased to 0.15 mg daily. 9. Nodules/cysts found on CT -per CTA PE and CT abdomen and pelvis, there are small nodules on pericardial sac, as well as renal cysts in addition to the left base infiltrate -patient with history of renal cell carcinoma treated with cryotherapy -follow-up likely be needed to Urology and Oncology Patient is limited code, no CPR, but okay to intubate. She would not oppose intubation and mechanical ventilation for short-term for treatable cause per bedside discussion on 09/10/2018. Hospital Course: Irina Kirk is a 73-year-old female with a past medical history significant for well-controlled diabetes mellitus type 2, non-insulin using, renal cell carcinoma status post cryotherapy, thyroidectomy for thyroid malignancy and CKD stage 3 who presented for pleuritic chest pain on 09/07/2018. The patient was on BiPAP for hypoxemic respiratory failure and started on ceftriaxone and azithromycin for left lower lobe pneumonia. She then developed a erythematous papular rash on her head, neck, and oral mucosa with concern for Logan Rivera syndrome, therefore, antibiotics were stopped and she was placed on high-dose dexamethasone. After approximately 48 hr the rash was improving andher oxygen saturations improved with resolution of pleuritic chest pain, therefore, dexamethasone was stopped. The next day she was working with speech therapy and was actively aspirating. She began drooling and was having difficulty with oral secretions. A chest x-ray was performed and demonstrated new right infiltrate and persistent left lower lobe infiltrate. There was also slight worsening of her rash and she now has palpable purpura on her lower extremities bilaterally. She was subsequently placed on high-flow oxygen, the dexamethasone was restarted at 10 mg IV b.i.d. and she was started on Zosyn for aspiration pneumonia. the hospitalist, Dr. Degroot, attempted to transfer for higher level of care at surrounding hospitals but was unsuccessful. He had several conversations with the [facility] at [facility] see details below. [facility] was contacted this morning who had bed availability and I personally spoke with Dr. Newsome, the hospitalist media production support manager in which records were reviewed and he accepted the transfer. She will likely need a tissue biopsy of both central rash and peripheral rash, pulmonology , dermatology, and Nephrology involvement, and possibly Infectious Disease. Of note, the patient reports that her sister had a history of vasculitis and last diagnosis was systemic lupus erythematosus prior to her taking her life in her 60s. Vasculitides studies and autoimmune workup has been ordered and pending. Cryoglobulins were not readily available to order. Written by Dr. Degroot: Multiple discussions with provider through transfer Center, including Dr. Live for dermatology, Dr. Overton for [facility], Dr. Burks (?) for inpatient Medicine. Will obtain requested blood work. She needs two tissue biopsies, 1 for H&E, and 1 biopsy of purpuric papules. They have agreed to take patient in transfer although no beds available. At this time patient's respiratory status has stabilized and she could potentially go to a medical non ICU bed if remains stable. They requested we called back around 1:00 p.m. tomorrow to check on bed status. Also earlier we attempted transfer to [facility] but no beds available. We also attempted transfer to [facility] but critical care physician felt patient would be better served at other hospital due to concern for Zaman-Rivera syndrome. However at this time SJS is considered much less likely per discussion with Dr. Live at [facility]. Will continue efforts to transfer patient to tertiary hospital while at same time providing best possible care we can here. Status at Discharge Overall status at discharge: patient is not back to baseline Exam Vital Signs (past 8 hours): - 09/11/18 03:50 09/11/18 07:00 09/11/18 07:30 Temperature 97.6 F 98.7 F Pulse Rate 100 H 101 H Respiratory Rate 14 15 Blood Pressure 141/75 H 146/64 H Pulse Oximetry 99 98 98 09/11/18 11:00 Temperature 98.4 F Pulse Rate 93 H Respiratory Rate 21 Blood Pressure 144/75 H Pulse Oximetry 100 Fraction of Inspired Oxygen 30 Oxygen Delivery Method High Flow Nasal Cannula Oxygen Flow Rate 35 Narrative Exam Narrative: General: Elderly female sitting in bed in no acute distress, well-developed, well-nourished, appropriately interactive, on high-flow nasal cannula. HEENT: Normocephalic, atraumatic. External ears without defect. Pupils equal, round, and reactive to light. Anicteric sclerae, moist conjunctivae, and no lid lag. Oropharynx with small 1-2 mm circular erythematous rash on soft/hard palate. bilateral orbital edema. Neck: Supple with full range of motion. No lymphadenopathy or thyromegaly. papular rash Cardiovascular: Regular rate and rhythm without murmurs, rubs, or gallops appreciated. Pulmonary: Clear to auscultation bilaterally without crackles, wheezes, or rhonchi. Normal respiratory effort with no use of accessory muscles. Abdomen: Soft, bowel sounds present, nontender, nondistended. No hepatosplenomegaly or masses appreciated. Extremities/Skin:Extensive coalescent raised erythematous rash, nonvesicular, non pustular, involving the forehead, cheeks, neck, and few lesions on upper back; she has multiple oral mucosa lesions or small ulcerations on tongue, buccal mucosa and soft palate; she has scattered multiple discrete palpable purpuric lesions on both arms and legs; no necrotic lesions, no sloughing other than oral mucosa ulcerations/lesions. On right thumb she has a semi firm mass which appears most as a hematoma, without any drainage or surrounding inflammation Neurological: Cranial nerves grossly intact. No focal neurological deficits. Psychiatric: Normal mood and affect. Alert and oriented to person, place, and time. Objective Labs Result Diagrams: 09/11/18 04:35 09/11/18 04:35 Labs: Laboratory Results - last 24 hr 09/10/18 09/10/18 09/10/18 11:42 11:55 19:00 WBC RBC Hgb Hct MCV MCH MCHC RDW Plt Count Neut % (Auto) Lymph % (Auto) Wright % (Auto) Eos % (Auto) Baso % (Auto) Lymph # (Auto) Wright # (Auto) Baso # (Auto) Total Counted Seg Neutrophils % Band Neutrophils % Lymphocytes % (Manual) Atypical Lymphs % Monocytes % (Manual) Eosinophils % (Manual) Metamyelocytes % Neutrophils # (Manual) RBC Morphology Hypochromasia Poikilocytosis Anisocytosis Humbird Cells ESR 45 H ABG pH 7.53 H ABG pCO2 16.8 L* ABG pO2 344 H* ABG HCO3 14 L ABG Total CO2 15 L ABG O2 Saturation 100 ABG Base Excess -9.0 L FiO2 100 Sodium Potassium Chloride Carbon Dioxide BUN Creatinine Estimated GFR BUN/Creatinine Ratio Glucose Calcium Magnesium Total Bilirubin AST ALT Alkaline Phosphatase Total Protein Albumin Globulin Albumin/Globulin Ratio Free T4 Nasal Screen MRSA (PCR) Negative for mrsa Rheumatoid Factor HIV 1&2 Antibody 09/10/18 09/10/18 09/11/18 19:00 19:00 04:35 WBC RBC Hgb Hct MCV MCH MCHC RDW Plt Count Neut % (Auto) Lymph % (Auto) Wright % (Auto) Eos % (Auto) Baso % (Auto) Lymph # (Auto) Wright # (Auto) Baso # (Auto) Total Counted Seg Neutrophils % Band Neutrophils % Lymphocytes % (Manual) Atypical Lymphs % Monocytes % (Manual) Eosinophils % (Manual) Metamyelocytes % Neutrophils # (Manual) RBC Morphology Hypochromasia Poikilocytosis Anisocytosis Hugh Cells ESR ABG pH ABG pCO2 ABG pO2 ABG HCO3 ABG Total CO2 ABG O2 Saturation ABG Base Excess FiO2 Sodium Potassium Chloride Carbon Dioxide BUN Creatinine Estimated GFR BUN/Creatinine Ratio Glucose Calcium Magnesium Total Bilirubin AST ALT Alkaline Phosphatase Total Protein Albumin Globulin Albumin/Globulin Ratio Free T4 1.29 Nasal Screen MRSA (PCR) Rheumatoid Factor 32.1 H HIV 1&2 Antibody Negative 09/11/18 09/11/18 04:35 04:35 WBC 3.0 L RBC 4.03 Hgb 9.8 L Hct 30.8 L MCV 76.6 L MCH 24.4 L MCHC 31.9 RDW 18.3 H Plt Count 206 Neut % (Auto) Not Reportable Lymph % (Auto) Not Reportable Wright % (Auto) Not Reportable Eos % (Auto) Not Reportable Baso % (Auto) Not Reportable Lymph # (Auto) Not Reportable Wright # (Auto) Not Reportable Baso # (Auto) Not Reportable Total Counted 100 Seg Neutrophils % 65.0 Band Neutrophils % 11.0 H Lymphocytes % (Manual) 6.0 L Atypical Lymphs % 2.0 H Monocytes % (Manual) 12.0 H Eosinophils % (Manual) 2.0 Metamyelocytes % 2.0 H Neutrophils # (Manual) 2280 L RBC Morphology Not Reportable Hypochromasia 1+ H Poikilocytosis 1+ H Anisocytosis 1+ H Humbird Cells 2+ H ESR ABG pH ABG pCO2 ABG pO2 ABG HCO3 ABG Total CO2 ABG O2 Saturation ABG Base Excess FiO2 Sodium 138 Potassium 4.2 Chloride 112 H Carbon Dioxide 15 L BUN 31 H Creatinine 1.40 H Estimated GFR 36.9 L BUN/Creatinine Ratio 22.1 H Glucose 173 H Calcium 7.6 L Magnesium 2.0 Total Bilirubin 0.5 AST 87 H ALT 30 Alkaline Phosphatase 53 Total Protein 6.2 L Albumin 2.8 L Globulin 3.4 Albumin/Globulin Ratio 0.8 L Free T4 Nasal Screen MRSA (PCR) Rheumatoid Factor HIV 1&2 Antibody Discharge Plan Discharge Plan Patient Disposition: [facility] Transfer to: [facility] Under care of provider: Dr. Newsome, hospitalist Discharge Med Rec/Prescriptions Prescriptions: Continued hydralazine 50 MG tablet 100 mg PO TID Qty: 0 RF: 0 metoprolol tartrate 25 MG tablet 12.5 mg PO BID Qty: 0 RF: 0 liothyronine [Cytomel] 25 MCG tablet 25 mcg PO QDAY Qty: 0 RF: 0 atorvastatin [Lipitor] 20 MG tablet 20 mg PO BEDTIME Qty: 0 RF: 0 clonidine [[id number]] 0.3 MG/24 HR patch weekly 0.3 mg Topical QWEEKSA Qty: 0 RF: 0 cholecalciferol (vitamin D3) [Vitamin D3] 2,000 unit Capsule 2,000 unit PO QPM Qty: 0 RF: 0 levothyroxine [Synthroid] 137 mcg tablet 137 mcg PO DAILY RF: 0 paroxetine HCl 10 mg tablet 10 mg PO DAILY RF: 0 Renagel 800 mg tablet 1,600 mg PO BID RF: 0 amlodipine 10 mg tablet 10 mg PO DAILY RF: 0 gabapentin 300 mg capsule 300 mg PO QPM RF: 0 omeprazole 20 mg capsule,delayed release(DR/EC) 40 mg PO DAILY RF: 0 doxazosin 4 mg tablet 2 mg PO BEDTIME RF: 0 glipizide 5 mg tablet 5 mg PO DAILY RF: 0 Renagel 800 mg tablet 800 mg PO QNOON RF: 0 Follow up/Referrals: Jerome Tracey MD [Primary Care Provider] - Discharge Orders: Discharge (Order); Ordered 09/11/18 Ordered By: Azucena Rodriguez Discharge Data Primary Care Provider: Jerome Tracey Attending Provider: Elly Brunner Admit Date/Time: 09/07/18 11:15 Quality VTE Deep Vein Thrombosis/Pulmonary Embolism Present on Admission: No
--- NOTE | 2018-09-11 12:12 | PT.IPTN ---
Current Diagnoses Pneumonia, unspecified organism (09/07/18) Cutaneous abscess of right hand (09/07/18) Physical Therapy Treatment Note M2 PT-IP Current Condition Start: 09/07/18 15:50 Freq: NEEDED Status: Active Protocol: Document 09/07/18 14:10 RCC (Rec: 09/07/18 16:07 RCC [id number]) Physical Therapy Current Condition Current Condition Evaluation Date 09/07/18 Treatment Diagnosis LUQ/chest pain, pneumonia, impaired activity tolerance Precautions Other Precautions monitor RI/O2 M3 PT-IP Subjective Start: 09/07/18 15:50 Freq: NEEDED Status: Active Protocol: Document 09/11/18 11:58 SA (Rec: 09/11/18 12:12 SA [id number]) Subjective Physical Therapy Visit Type Type Treatment Note Visit Start Time 09:46 Visit Stop Time 10:10 Total Visit Minutes 24 Notes Pt in ICU, cleared for PT/OT. Number of KARATE BLACK BELT Visits 1 Physical Therapy Visit Comments Patient Comments Pt sitting up in chair and ready to get up. Therapy Pain Assessment Pain When Pain Assessed At Rest Pain Present Pain Present Denied Pain M4 PT-IP Mobility and Gait Start: 09/07/18 15:50 Freq: NEEDED Status: Active Protocol: Document 09/11/18 11:58 SA (Rec: 09/11/18 12:12 SA [id number]) PT-Transfer Assessment Sit to and From Stand Sit to and from Stand Contact Guard Assistance 1 Person Assistance Use of Upper Extremities Equipment Transfer Assistive Device Gait Belt Front Wheeled Walker Orthotic/Prosthetic Devices or Brace: No Transfers Transfer Destination Chair Transfer Technique Stand Step Pivot Transfer Ability Level of Assist Contact Guard Assistance Comments Mobility Comments Pt completed 5 sit to stads wiht CGA and min cues. Vitals WNL and high flow 02 remained on during session, 02 sats 95- 98%. Pt had no c/o dizziness with standing activity. Gait Assessment Gait Gait Assistance Required: Contact Guard Assist 1 Person Assist Distance (Feet) 15 Assistive Devices Assistive Device Gait Belt Front Wheeled Walker Gait Deviations General Gait Pattern Antalgic Decreased Stride Length Decreased Feet Clearance Factors Limiting Gait Function Factors Limiting Gait Function Decreased Activity Tolerance Decreased Strength Comments Gait Comments Pt walked 5 feet forward/ backward 3x with good tolerance and no seated rest break. 02 levels above 94%, no LOB. PT-Balance Assessment Sitting Balance and Reactions Static Sitting Balance Ability Good Dynamic Sitting Balance Ability Good Standing Balance and Reactions Static Standing Balance Ability Good Dynamic Standing Balance Ability Good Comments Other Balance Tests/Deviations/Treatment Pt completed standing heel/toe : raises, marching and lateral tap outs at FWW with CGA and min cues, no LOB. Pt stated it felt good to stand up. M5 PT-IP Objective Assessments Start: 09/07/18 15:50 Freq: NEEDED Status: Active Protocol: Document 09/07/18 14:10 RCC (Rec: 09/07/18 16:07 RCC [id number]) Orientation Orientation/Cognition Level of Alertness Alert Strength Lower Extremity Strength Assessment Bilaterally Impaired Hip flexion 3+/5 B Knee flexion 3/5 R and 3+/5 L; extension 3+/5 B Ankle DF 4/5 B M6 PT-IP Treatment Start: 09/07/18 15:50 Freq: NEEDED Status: Active Protocol: Document 09/11/18 11:58 SA (Rec: 09/11/18 12:12 SA [id number]) Physical Therapy Treatment Exercises Exercises Ankle Pumps Gluteal Sets Quad Sets Seated Knee Flexion/Extension Education Education Provided Safety M7 PT-IP Assessment and Plan Start: 09/07/18 15:50 Freq: NEEDED Status: Active Protocol: Document 09/11/18 11:58 SA (Rec: 09/11/18 12:12 SA [id number]) PT Summary Assessment and Plan Potential Rehabilitation Potential Good Status of Condition at Evaluation Unstable Summary Impairments Strength Balance Bed Mobility Transfers Gait Activity Tolerance Assessment Summary Pt feeling better today and enjoyed standing and moving. Gait training with FWW and CGA x 15 feet total with high flow 02 donned through out session and 02 levels above 94%. Frequency of Treatment Frequency Of Treatment Twice a Day Recommendations To Nursing Amount of Assist Needed 1 Person Assist Discharge Recommendations PT Discharge Recommendations SNF Rehab Other Discharge Recommendations SNF vs. home with 29/01 assist and HH
--- NOTE | 2018-09-11 12:48 | PC.NURSE ---
Addendum entered by Bronson Erazo R.N. 09/11/18 12:54: Clarified IVF order with Dr. Rodriguez. Dr. Rodriguez states OK for pt to transport without IVF running. Saline locked PIV. Original Note: 0800- Dr. Rodriguez rounded. Updated on O2 needs, pt condition, assessment findings (see chart). Dr. Rodriguez states plan of care cont with awaiting bed at tertiary care facility. RN Coordinator aware of plan and looking for open bed availability. and daughter are both updated at approx 1030 that [facility] in [place] is accepting and has room availability. Midline placed by IMANI RN to [facility]. Pt dc'd to tertiary care at 1220 with EMS. Report given to EMS staff and also called to LIBBY Powell at [facility] in [place] and gave report. and daughters aware of transfer. Home meds stored in pharmacy are given to pt's .
[2018-09-13 11:39] LABS: Complement Total CH50 38 U/mL (31-60)
[2018-09-13 14:39] LABS: Complement C3 75 mg/dL (83-193)
[2018-09-13 19:45] LABS: ANCA Screen Positive (Negative); Atypical P-ANCA Titer <1:20 titer (<1:20); C-ANCA Titer <1:20 titer (<1:20); P-ANCA Titer >1:640 titer (<1:20)
[2018-09-14 19:48] LABS: ANA Pattern HOMOGENEOUS; ANA Screen POSITIVE (Negative); ANA Titer >=1:1280 titer; DNA Antibody Crithidia IFA POSITIVE (Negative); Rheumatoid Factor 40 IU/mL (< 14); Sjogren Antiboday SS-A <1.0 NEG AI (<1.0 NEGATIVE); Sjogren Antiboday SS-B <1.0 NEG AI (<1.0 NEGATIVE); Sm Antibody <1.0 NEG AI (<1.0 NEGATIVE); Sm/RNP Antibody <1.0 NEG AI (<1.0 NEGATIVE)
== END 2018-09-11 12:20 | disposition short-term general hospital (02) | DRG 177 ==
LOC: ED 13:18 → AC 13:40 → ICU 09-11 11:48
PROVIDERS: Family Medicine; Internal Medicine; Admitting Provider Internal Medicine; Emergency Provider Emergency Medicine; Family Provider Obstetrics & Gynecology; PCP Obstetrics & Gynecology; Visit Provider Internal Medicine
DX: J69.0 Pneumonitis due to inhalation of food and vomit (principal); J96.01 Acute respiratory failure with hypoxia; E43 Unspecified severe protein-calorie malnutrition; L02.511 Cutaneous abscess of right hand; E87.1 Hypo-osmolality and hyponatremia; N17.9 Acute kidney failure, unspecified; R21 Rash and other nonspecific skin eruption; R10.12 Left upper quadrant pain; D50.9 Iron deficiency anemia, unspecified; D70.9 Neutropenia, unspecified; E11.22 Type 2 diabetes mellitus with diabetic chronic kidney disease; I12.9 Hypertensive chronic kidney disease with stage 1 through stage 4 chronic kidney disease, or unspecified chronic kidney disease; N18.3 Chronic kidney disease, stage 3 (moderate); Z79.84 Long term (current) use of oral hypoglycemic drugs; E11.40 Type 2 diabetes mellitus with diabetic neuropathy, unspecified; E78.5 Hyperlipidemia, unspecified; E89.0 Postprocedural hypothyroidism; T38.0X5A Adverse effect of glucocorticoids and synthetic analogues, initial encounter; J18.9 Pneumonia, unspecified organism; S60.011A Contusion of right thumb without damage to nail, initial encounter; Z68.26 Body mass index [BMI] 26.0-26.9, adult
CPT/HCPCS: 36415; 36430; 36600; 71045; 71046; 71275; 73140; 74177; 80048; 80053; 81003; 81015; 82550; 82805; 82962; 83540; 83550; 83690; 83735; 83880; 84439; 84443; 84484; 85025; 85610; 85651; 85730; 86021; 86038; 86160; 86162; 86430; 86703; 86850; 86900; 86901; 87040; 87070; 87075; 87077; 87086; 87205; 87797; 92610; 93005; 93010; 93306; 94660; 94760; 94762; 96361; 96374; 96375; 97110; 97116; 97163; 97166; 97530; 97535; 99285; G0378; P9016; J1100; J1200; J1644; J1956; J2270; J2405; J2543